=== PATIENT | male | born 1955 | race Caucasian/White ===

== ENCOUNTER → 2024-11-02 | Outpatient (REF) | payer MEDICARE, MEDICAID, SELFPAY ==
[2024-11-02 07:39] LABS: Hematocrit 30.6 % (40-54); Hemoglobin 10.2 g/dL (13.0-16.5); Immature Granulocytes Count 0.050 X10^3/uL (0.0-0.0); Mean Corp Hgb Conc 33.3 g/dL (32-36); Mean Corpuscular Volume 97.5 fL (80-94); Mean Platelet Vol. 10.4 fl (6.2-12.0); NRBC Flagged by Analyzer 0 % (0-5); Platelet Count 282 K/mm3 (150-450); RBC Distribution Width CV 13.5 % (11.6-14.6); RBC Distribution Width SD 48.8 fl (35.1-43.9); Red Blood Count 3.14 M/mm3 (4.6-6.2); White Blood Count 9.0 K/mm3 (4.4-11.0)
[2024-11-02 07:52] LABS: Albumin, Serum 4.1 g/dL (3.4-4.8); Anion Gap 14 (5-15); BUN 67 mg/dL (4-19); BUN/Creat Ratio 9.7 RATIO (10-20); Calcium,Total 9.8 mg/dL (7.6-11.0); Carbon Dioxide 32.0 mmol/L (21.0-32.0); Chloride 100 mmol/L (98-108); Glucose 59 mg/dL (70-99); Potassium 4.0 mmol/L (3.3-5.1)
[2024-11-04 17:07] LABS: KEPPRA (LEVETIRACETAM) 26.8 ug/mL (10.0-40.0)
== END ==
LOC: OLS.SW 04:00
PROVIDERS: Referring Provider Internal Medicine; Visit Provider Internal Medicine
DX: E11.22 Type 2 diabetes mellitus with diabetic chronic kidney disease (principal); N18.6 End stage renal disease; D63.1 Anemia in chronic kidney disease
CPT/HCPCS: 36415; 80069; 80177; 83036; 85025

== ENCOUNTER → 2024-11-04 05:00 | Outpatient (REF) | payer MEDICARE, MEDICAID, SELFPAY ==
--- OUTSIDE RECORDS SUMMARY | 2024-11-04 04:29 | XMS RPT_ITS | CCD ---
Author Organization [facility] Care Team Providers Care Hr Clerk Name Role Phone Yessy Zapata Attending Unavailable Yessy Zapata Attending Unavailable Yessy Zapata Attending Unavailable Results Test Name Value Interpretation Reference Range Facil ity CBC W/Diff, Automatedon 10-22 Absolute Lymph 2.30 X10 3/uL Normal 0.83-4.51 [facility] Comment on above: Order Comment: 206 Performed By: #### L 501.9985, L500.3600, L100.0100 #### [facility] [address] [place], [address] Absolute Neut 5.4 X10 3/uL Normal 2.0-7.7 [facility] Comment on above: Order Comment: 206 Performed By: #### L 501.9985, L500.3600, L100.0100 #### [facility] [address] [place], [address] Basophils/100 WBC (Bld) 0.7 % Normal 0-1 [facility] Comment on above: Order Comment: 206 Performed By: #### L 501.9985, L500.3600, L100.0100 #### [facility] [address] [place], [address] Eosinophils/100 WBC (Bld) 4.9 % Normal 0-5 [facility] Comment on above: Order Comment: 206 Performed By: #### L 501.9985, L500.3600, L100.0100 #### [facility] [address] [place], [address] Erythrocyte distribution width (RBC) [Ratio] 13.5 % Normal 11.6-14.6 [facility] Comment on above: Order Comment: 206 Performed By: #### L 501.9985, L500.3600, L100.0100 #### [facility] [address] [place], [address] Hematocrit (Bld) [Volume fraction] 30.6 % Low 40-54 [facility] Comment on above: Order Comment: 206 Performed By: #### L 501.9985, L500.3600, L100.0100 #### [facility] [address] [place], [address] Hemoglobin (Bld) [Mass/Vol] 10.2 g/dL Low 13.0-16.5 [facility] Comment on above: Order Comment: 206 Performed By: #### L 501.9985, L500.3600, L100.0100 #### [facility] [address] [place], [address] IG% 0.600 Normal 0.0-0.9 [facility] Comment on above: Order Comment: 206 Result Comment: IG% - Immature Granulocytes (promyelocytes, myelocytes and metamyelocytes) > 1% indicates that a LEFT SHIFT is Present. Performed By: #### L 501.9985, L500.3600, L100.0100 #### [facility] [address] [place], [address] Lymphocytes/100 WBC (Bld) 25.7 % Normal 19-41 [facility] Comment on above: Order Comment: 206 Performed By: #### L 501.9985, L500.3600, L100.0100 #### [facility] [address] [place], [address] MCH (RBC) [Entitic mass] 32.5 pg High 27.0-32.0 [facility] Comment on above: Order Comment: 206 Performed By: #### L 501.9985, L500.3600, L100.0100 #### [facility] [address] [place], [address] MCHC (RBC) [Mass/Vol] 33.3 g/dL Normal 32-36 [facility] Comment on above: Order Comment: 206 Performed By: #### L 501.9985, L500.3600, L100.0100 #### [facility] [address] [place], [address] MCV (RBC) [Entitic vol] 97.5 fL High 80-94 [facility] Comment on above: Order Comment: 206 Performed By: #### L 501.9985, L500.3600, L100.0100 #### [facility] [address] [place], [address] Monocytes/100 WBC (Bld) 8.2 % Normal 0-10 [facility] Comment on above: Order Comment: 206 Performed By: #### L 501.9985, L500.3600, L100.0100 #### [facility] [address] [place], [address] Neutrophils/100 WBC (Bld) 59.9 % Normal 47-70 [facility] Comment on above: Order Comment: 206 Performed By: #### L 501.9985, L500.3600, L100.0100 #### [facility] [address] [place], [address] Nucleated RBC (Bld) [#/Vol] 0 10*3/uL Normal 0-5 [facility] Comment on above: Order Comment: 206 Performed By: #### L 501.9985, L500.3600, L100.0100 #### [facility] [address] [place], [address] Platelet mean volume (Bld) [Entitic vol] 10.4 fL Normal 6.2-12.0 [facility] Comment on above: Order Comment: 206 Performed By: #### L 501.9985, L500.3600, L100.0100 #### [facility] [address] [place] [place], [address] Platelets (Bld) [#/Vol] 282 10*3/uL Normal 150-450 [facility] Comment on above: Order Comment: 206 Performed By: #### L 501.9985, L500.3600, L100.0100 #### [facility] [address] [place], [address] RBC (Bld) [#/Vol] 3.14 10*6/uL Low 4.6-6.2 [facility] Comment on above: Order Comment: 206 Performed By: #### L 501.9985, L500.3600, L100.0100 #### [facility] [address] [place], [address] RDW SD 48.8 fl High 35.1-43.9 [facility] Comment on above: Order Comment: 206 Performed By: #### L 501.9985, L500.3600, L100.0100 #### [facility] [address] [place], [address] WBC (Bld) [#/Vol] 9.0 10*3/uL Normal 4.4-11.0 [facility] Comment on above: Order Comment: 206 Performed By: #### L 501.9985, L500.3600, L100.0100 #### [facility] [address] [place], [address] Hemoglobin A1con 11-02-2024 HbA1c (Bld) [Mass fraction] 8.0 % High <=5.6 [facility] Comment on above: Order Comment: 206 Result Comment: Norm al < 5.7 % Prediabetic 5.7 - 6.4 % Diabetic >or= 6.5 % Please note range changes. Performed By: #### L 501.9985, L500.3600, L100.0100 #### [facility] [address] [place], [address] Renal Profileon 11-02-2024 Albumin [Mass/Vol] 4.1 g/dL Normal 3.4-4.8 [facility] Comment on above: Order Comment: 206 Performed By: #### L 501.9985, L500.3600, L100.0100 #### [facility] [address] [place], [address] BUN/CRE 9.7 RATIO Low 10-20 [facility] Comment on above: Order Comment: 206 Performed By: #### L 501.9985, L500.3600, L100.0100 #### [facility] [address] [place], [address] Calcium [Mass/Vol] 9.8 mg/dL Normal 7.6-11.0 [facility] Comment on above: Order Comment: 206 Performed By: #### L 501.9985, L500.3600, L100.0100 #### [facility] [address] [place], [address] Chloride [Moles/Vol] 100 mmol/L Normal 98-108 [facility] Comment on above: Order Comment: 206 Performed By: #### L 501.9985, L500.3600, L100.0100 #### [facility] [address] [place], [address] CO2 [Moles/Vol] 32.0 mmol/L Normal 21.0-32.0 [facility] Comment on above: Order Comment: 206 Performed By: #### L 501.9985, L500.3600, L100.0100 #### [facility] [address] [place], [address] Creatinine [Mass/Vol] 6.91 mg/dL High 0.70-1.20 [facility] Comment on above: Order Comment: 206 Performed By: #### L 501.9985, L500.3600, L100.0100 #### [facility] [address] [place], [address] GAP 14 Normal 5-15 [facility] Comment on above: Order Comment: 206 Performed By: #### L 501.9985, L500.3600, L100.0100 #### [facility] [address] [place], [address] GFR/1.73 sq M.predicted among non-blacks MDRD (S/P/Bld) [Vol rate/Area] 8 mL/min/{1.73_m2} Low >60 [facility] Comment on above: Order Comment: 206 Result Comment: mL/m in/1.73m2 CKD-EPI Creatinine Equation (2020) Performed By: #### L 501.9985, L500.3600, L100.0100 #### [facility] [address] [place], [address] Glucose [Mass/Vol] 59 mg/dL Low 70-99 [facility] Comment on above: Order Comment: 206 Performed By: #### L 501.9985, L500.3600, L100.0100 #### [facility] [address] [place], [address] Phosphate [Mass/Vol] 6.5 mg/dL High 2.7-4.5 [facility] Comment on above: Order Comment: 206 Performed By: #### L 501.9985, L500.3600, L100.0100 #### [facility] [address] [place], [address] Potassium [Moles/Vol] 4.0 mmol/L Normal 3.3-5.1 [facility] Comment on above: Order Comment: 206 Performed By: #### L 501.9985, L500.3600, L100.0100 #### [facility] [address] [place], [address] Sodium [Moles/Vol] 145 mmol/L Normal 133-145 [facility] Comment on above: Order Comment: 206 Performed By: #### L 501.9985, L500.3600, L100.0100 #### [facility] [address] [place], [address] Urea nitrogen [Mass/Vol] 67 mg/dL High 4-19 [facility] Comment on above: Order Comment: 206 Performed By: #### L 501.9985, L500.3600, L100.0100 #### [facility] [address] [place], [address] Basic Metabolic Profile (BMP )on 10-28-2024 BUN/CRE 9.0 RATIO Low 10-20 [facility] Comment on above: Order Comment: 206 Performed By: #### L 100.0100, L500.2500, L501.5200 #### [facility] [address] [place], [address] Calcium [Mass/Vol] 8.7 mg/dL Normal 7.6-11.0 [facility] Comment on above: Order Comment: 206 Performed By: #### L 100.0100, L500.2500, L501.5200 #### [facility] [address] [place], [address] Chloride [Moles/Vol] 96 mmol/L Low 98-108 [facility] Comment on above: Order Comment: 206 Performed By: #### L 100.0100, L500.2500, L501.5200 #### [facility] [address] [place], [address] CO2 [Moles/Vol] 30.1 mmol/L Normal 21.0-32.0 [facility] Comment on above: Order Comment: 206 Performed By: #### L 100.0100, L500.2500, L501.5200 #### [facility] [address] [place], [address] Creatinine [Mass/Vol] 6.72 mg/dL High 0.70-1.20 [facility] Comment on above: Order Comment: 206 Performed By: #### L 100.0100, L500.2500, L501.5200 #### [facility] [address] [place], [address] GAP 14 Normal 5-15 [facility] Comment on above: Order Comment: 206 Performed By: #### L 100.0100, L500.2500, L501.5200 #### [facility] [address] [place], [address] GFR/1.73 sq M.predicted among non-blacks MDRD (S/P/Bld) [Vol rate/Area] 8 mL/min/{1.73_m2} Low >60 [facility] Comment on above: Order Comment: 206 Result Comment: mL/m in/1.73m2 CKD-EPI Creatinine Equation (2020) Performed By: #### L 100.0100, L500.2500, L501.5200 #### [facility] [address] [place], [address] Glucose [Mass/Vol] 169 mg/dL High 70-99 [facility] Comment on above: Order Comment: 206 Performed By: #### L 100.0100, L500.2500, L501.5200 #### [facility] [address] [place], [address] Potassium [Moles/Vol] 4.5 mmol/L Normal 3.3-5.1 [facility] Comment on above: Order Comment: 206 Performed By: #### L 100.0100, L500.2500, L501.5200 #### [facility] [address] [place], [address] Sodium [Moles/Vol] 140 mmol/L Normal 133-145 [facility] Comment on above: Order Comment: 206 Performed By: #### L 100.0100, L500.2500, L501.5200 #### [facility] [address] [place], [address] Urea nitrogen [Mass/Vol] 60 mg/dL High 4-19 [facility] Comment on above: Order Comment: 206 Performed By: #### L 100.0100, L500.2500, L501.5200 #### [facility] [address] [place], [address] CBC W/Diff, Automatedon 08-0 7-2024 Absolute Lymph 2.39 X10 3/uL Normal 0.83-4.51 [facility] Comment on above: Order Comment: 206 Performed By: #### L 100.0100, L500.2500, L501.5200 #### [facility] [address] [place], [address] Absolute Neut 4.9 X10 3/uL Normal 2.0-7.7 [facility] Comment on above: Order Comment: 206 Performed By: #### L 100.0100, L500.2500, L501.5200 #### [facility] [address] [place], [address] Basophils/100 WBC (Bld) 0.8 % Normal 0-1 [facility] Comment on above: Order Comment: 206 Performed By: #### L 100.0100, L500.2500, L501.5200 #### [facility] [address] [place], [address] Eosinophils/100 WBC (Bld) 3.8 % Normal 0-5 [facility] Comment on above: Order Comment: 206 Performed By: #### L 100.0100, L500.2500, L501.5200 #### [facility] [address] [place], [address] Erythrocyte distribution width (RBC) [Ratio] 13.6 % Normal 11.6-14.6 [facility] Comment on above: Order Comment: 206 Performed By: #### L 100.0100, L500.2500, L501.5200 #### [facility] [address] [place], [address] Hematocrit (Bld) [Volume fraction] 30.1 % Low 40-54 [facility] Comment on above: Order Comment: 206 Performed By: #### L 100.0100, L500.2500, L501.5200 #### [facility] [address] [place], [address] Hemoglobin (Bld) [Mass/Vol] 10.0 g/dL Low 13.0-16.5 [facility] Comment on above: Order Comment: 206 Performed By: #### L 100.0100, L500.2500, L501.5200 #### [facility] [address] [place], [address] IG% 0.500 Normal 0.0-0.9 [facility] Comment on above: Order Comment: 206 Result Comment: IG% - Immature Granulocytes (promyelocytes, myelocytes and metamyelocytes) > 1% indicates that a LEFT SHIFT is Present. Performed By: #### L 100.0100, L500.2500, L501.5200 #### [facility] [address] [place], [address] Lymphocytes/100 WBC (Bld) 28.6 % Normal 19-41 [facility] Comment on above: Order Comment: 206 Performed By: #### L 100.0100, L500.2500, L501.5200 #### [facility] [address] [place], [address] MCH (RBC) [Entitic mass] 32.4 pg High 27.0-32.0 [facility] Comment on above: Order Comment: 206 Performed By: #### L 100.0100, L500.2500, L501.5200 #### [facility] [address] [place], [address] MCHC (RBC) [Mass/Vol] 33.2 g/dL Normal 32-36 [facility] Comment on above: Order Comment: 206 Performed By: #### L 100.0100, L500.2500, L501.5200 #### [facility] [address] [place], [address] MCV (RBC) [Entitic vol] 97.4 fL High 80-94 [facility] Comment on above: Order Comment: 206 Performed By: #### L 100.0100, L500.2500, L501.5200 #### [facility] [address] [place], [address] Monocytes/100 WBC (Bld) 7.9 % Normal 0-10 [facility] Comment on above: Order Comment: 206 Performed By: #### L 100.0100, L500.2500, L501.5200 #### [facility] [address] [place], [address] Neutrophils/100 WBC (Bld) 58.4 % Normal 47-70 [facility] Comment on above: Order Comment: 206 Performed By: #### L 100.0100, L500.2500, L501.5200 #### [facility] [address] [place], [address] Nucleated RBC (Bld) [#/Vol] 0 10*3/uL Normal 0-5 [facility] Comment on above: Order Comment: 206 Performed By: #### L 100.0100, L500.2500, L501.5200 #### [facility] [address] [place], [address] Platelet mean volume (Bld) [Entitic vol] 10.4 fL Normal 6.2-12.0 [facility] Comment on above: Order Comment: 206 Performed By: #### L 100.0100, L500.2500, L501.5200 #### [facility] [address] [place], [address] Platelets (Bld) [#/Vol] 292 10*3/uL Normal 150-450 [facility] Comment on above: Order Comment: 206 Performed By: #### L 100.0100, L500.2500, L501.5200 #### [facility] [address] [place], [address] RBC (Bld) [#/Vol] 3.09 10*6/uL Low 4.6-6.2 [facility] Comment on above: Order Comment: 206 Performed By: #### L 100.0100, L500.2500, L501.5200 #### [facility] [address] [place], [address] RDW SD 48.1 fl High 35.1-43.9 [facility] Comment on above: Order Comment: 206 Performed By: #### L 100.0100, L500.2500, L501.5200 #### [facility] [address] [place], [address] WBC (Bld) [#/Vol] 8.4 10*3/uL Normal 4.4-11.0 [facility] Comment on above: Order Comment: 206 Performed By: #### L 100.0100, L500.2500, L501.5200 #### [facility] [address] [place], [address] Magnesiumon 10-28-2024 Magnesium [Mass/Vol] 2.9 mg/dL High 1.5-2.2 [facility] Comment on above: Order Comment: 206 Performed By: #### L 100.0100, L500.2500, L501.5200 #### [facility] [address] [place], [address] Basic Metabolic Profile (BMP )on 2024 BUN/CRE 8.4 RATIO Low 10-20 [facility] Comment on above: Performed By: #### L 100.0100, L500.2500, L501.5200 #### [facility] [address] [place], [address] Calcium [Mass/Vol] 8.9 mg/dL Normal 7.6-11.0 [facility] Comment on above: Performed By: #### L 100.0100, L500.2500, L501.5200 #### [facility] [address] [place], [address] Chloride [Moles/Vol] 98 mmol/L Normal 98-108 [facility] Comment on above: Performed By: #### L 100.0100, L500.2500, L501.5200 #### [facility] [address] [place], [address] CO2 [Moles/Vol] 26.2 mmol/L Normal 21.0-32.0 [facility] Comment on above: Performed By: #### L 100.0100, L500.2500, L501.5200 #### [facility] [address] [place], [address] Creatinine [Mass/Vol] 6.99 mg/dL High 0.70-1.20 [facility] Comment on above: Performed By: #### L 100.0100, L500.2500, L501.5200 #### [facility] [address] [place], [address] GAP 15 Normal 5-15 [facility] Comment on above: Performed By: #### L 100.0100, L500.2500, L501.5200 #### [facility] [address] [place], [address] GFR/1.73 sq M.predicted among non-blacks MDRD (S/P/Bld) [Vol rate/Area] 8 mL/min/{1.73_m2} Low >60 [facility] Comment on above: Result Comment: mL/m in/1.73m2 CKD-EPI Creatinine Equation (2020) Performed By: #### L 100.0100, L500.2500, L501.5200 #### [facility] [address] [place], [address] Glucose [Mass/Vol] 161 mg/dL High 70-99 [facility] Comment on above: Performed By: #### L 100.0100, L500.2500, L501.5200 #### [facility] [address] [place], [address] Potassium [Moles/Vol] 4.4 mmol/L Normal 3.3-5.1 [facility] Comment on above: Performed By: #### L 100.0100, L500.2500, L501.5200 #### [facility] [address] [place], [address] Sodium [Moles/Vol] 140 mmol/L Normal 133-145 [facility] Comment on above: Performed By: #### L 100.0100, L500.2500, L501.5200 #### [facility] [address] [place], [address] Urea nitrogen [Mass/Vol] 58 mg/dL High 4-19 [facility] Comment on above: Performed By: #### L 100.0100, L500.2500, L501.5200 #### [facility] [address] [place], [address] CBC W/Diff, Automatedon 08-0 -2024 Absolute Lymph 3.25 X10 3/uL Normal 0.83-4.51 [facility] Comment on above: Performed By: #### L 100.0100, L500.2500, L501.5200 #### [facility] [address] [place], [address] Absolute Neut 4.2 X10 3/uL Normal 2.0-7.7 [facility] Comment on above: Performed By: #### L 100.0100, L500.2500, L501.5200 #### [facility] [address] [place], [address] Basophils/100 WBC (Bld) 0.6 % Normal 0-1 [facility] Comment on above: Performed By: #### L 100.0100, L500.2500, L501.5200 #### [facility] [address] [place], [address] Eosinophils/100 WBC (Bld) 4.7 % Normal 0-5 [facility] Comment on above: Performed By: #### L 100.0100, L500.2500, L501.5200 #### [facility] [address] [place], [address] Erythrocyte distribution width (RBC) [Ratio] 13.7 % Normal 11.6-14.6 [facility] Comment on above: Performed By: #### L 100.0100, L500.2500, L501.5200 #### [facility] [address] [place], [address] Hematocrit (Bld) [Volume fraction] 29.4 % Low 40-54 [facility] Comment on above: Performed By: #### L 100.0100, L500.2500, L501.5200 #### [facility] [address] [place], [address] Hemoglobin (Bld) [Mass/Vol] 9.6 g/dL Low 13.0-16.5 [facility] Comment on above: Performed By: #### L 100.0100, L500.2500, L501.5200 #### [facility] [address] [place], [address] IG% 0.200 Normal 0.0-0.9 [facility] Comment on above: Result Comment: IG% - Immature Granulocytes (promyelocytes, myelocytes and metamyelocytes) > 1% indicates that a LEFT SHIFT is Present. Performed By: #### L 100.0100, L500.2500, L501.5200 #### [facility] [address] [place], [address] Lymphocytes/100 WBC (Bld) 37.5 % Normal 19-41 [facility] Comment on above: Performed By: #### L 100.0100, L500.2500, L501.5200 #### [facility] [address] [place], [address] MCH (RBC) [Entitic mass] 32.2 pg High 27.0-32.0 [facility] Comment on above: Performed By: #### L 100.0100, L500.2500, L501.5200 #### [facility] [address] [place], [address] MCHC (RBC) [Mass/Vol] 32.7 g/dL Normal 32-36 [facility] Comment on above: Performed By: #### L 100.0100, L500.2500, L501.5200 #### [facility] [address] [place], [address] MCV (RBC) [Entitic vol] 98.7 fL High 80-94 [facility] Comment on above: Performed By: #### L 100.0100, L500.2500, L501.5200 #### [facility] [address] [place], [address] Monocytes/100 WBC (Bld) 8.4 % Normal 0-10 [facility] Comment on above: Performed By: #### L 100.0100, L500.2500, L501.5200 #### [facility] [address] [place], [address] Neutrophils/100 WBC (Bld) 48.6 % Normal 47-70 [facility] Comment on above: Performed By: #### L 100.0100, L500.2500, L501.5200 #### [facility] [address] [place], [address] Nucleated RBC (Bld) [#/Vol] 0 10*3/uL Normal 0-5 [facility] Comment on above: Performed By: #### L 100.0100, L500.2500, L501.5200 #### [facility] [address] [place], [address] Platelet mean volume (Bld) [Entitic vol] 10.2 fL Normal 6.2-12.0 [facility] Comment on above: Performed By: #### L 100.0100, L500.2500, L501.5200 #### [facility] [address] [place], [address] Platelets (Bld) [#/Vol] 282 10*3/uL Normal 150-450 [facility] Comment on above: Performed By: #### L 100.0100, L500.2500, L501.5200 #### [facility] [address] [place], [address] RBC (Bld) [#/Vol] 2.98 10*6/uL Low 4.6-6.2 [facility] Comment on above: Performed By: #### L 100.0100, L500.2500, L501.5200 #### [facility] [address] [place], [address] RDW SD 49.5 fl High 35.1-43.9 [facility] Comment on above: Performed By: #### L 100.0100, L500.2500, L501.5200 #### [facility] [address] [place], [address] WBC (Bld) [#/Vol] 8.7 10*3/uL Normal 4.4-11.0 [facility] Comment on above: Performed By: #### L 100.0100, L500.2500, L501.5200 #### [facility] [address] [place], [address] Magnesiumon 2024 Magnesium [Mass/Vol] 2.8 mg/dL High 1.5-2.2 [facility] Comment on above: Performed By: #### L 100.0100, L500.2500, L501.5200 #### [facility] [address] [place], [address] Encounters Encounter Date Encounter Type Care Provider Facility Start: 11-02-2024 [facility] Facili ty:[facility] Start: 10-28-2024 [facility] Facili ty:[facility] Payers Date Payer Category Payer Self-pay Summary Purpose Family History No Family History Records Found Advance Directives No Advanced Directives Records Found Additional Source Comments (unrecognized sect ion and content) No Status Records Found INFORMATION SOURCE (unrecogn ized section and content) DATE CREATED AUTHOR 11/03/2024 [facility] FOR RECORDS PERTAINING TO PATIENTS WHO ARE OR HAVE BEEN ENROLLED IN A CHEMICAL DEPENDENCY/SUBSTANCEABUSE PROGRAM, SOME INFORMATION MAY BE OMITTED. This clinical summary was aggregated from multiple sources. Caution should be exercised in using it in the provision of clinical care. This summary normalizes information from multiple sources, and as a consequence, information in this document may materially change the coding, format and clinical context of patient data. In addition, data may be omitted in some cases. CLINICAL DECISIONS SHOULD BE BASED ON THE PRIMARY CLINICAL RECORDS. [employer] provides no warranty or guarantee of the accuracy or completeness of information in this document.
[2024-11-04 09:07] LABS: Hematocrit 30.3 % (40-54); Hemoglobin 10.1 g/dL (13.0-16.5); Immature Granulocytes Count 0.020 X10^3/uL (0.0-0.0); Mean Corp Hgb Conc 33.3 g/dL (32-36); Mean Corpuscular Volume 95.9 fL (80-94); Mean Platelet Vol. 10.4 fl (6.2-12.0); NRBC Flagged by Analyzer 0 % (0-5); Platelet Count 280 K/mm3 (150-450); RBC Distribution Width CV 13.4 % (11.6-14.6); RBC Distribution Width SD 47.6 fl (35.1-43.9); Red Blood Count 3.16 M/mm3 (4.6-6.2); White Blood Count 7.8 K/mm3 (4.4-11.0)
[2024-11-04 10:02] LABS: Anion Gap 18 (5-15); BUN 47 mg/dL (4-19); BUN/Creat Ratio 6.6 RATIO (10-20); Calcium,Total 9.5 mg/dL (7.6-11.0); Carbon Dioxide 37.9 mmol/L (21.0-32.0); Chloride 86 mmol/L (98-108); Glucose 139 mg/dL (70-99); Magnesium 2.7 mg/dL (1.5-2.2); Potassium 3.6 mmol/L (3.3-5.1)
== END ==
LOC: OLS.SW 05:00
PROVIDERS: PCP Internal Medicine; Visit Provider Internal Medicine
DX: E11.22 Type 2 diabetes mellitus with diabetic chronic kidney disease (principal); N18.6 End stage renal disease; I12.0 Hypertensive chronic kidney disease with stage 5 chronic kidney disease or end stage renal disease
CPT/HCPCS: 36415; 80048; 83735; 85025

== ENCOUNTER 2024-11-04 10:43 | Emergency (ER) | payer MEDICARE, MEDICAID, SELFPAY ==
[2024-11-04 10:45] VITALS: BP 131/69; PULSE 72; RESP 18; TEMP 36.9; O2SAT 100; BMI 25.9
--- NOTE | 2024-11-04 10:57 | CT_ITS ---
PROCEDURE: ABDOMEN/PELVIS W IV CONT ONLY 11/04/2024 REASON FOR EXAM: ABDOMINAL PAIN, NAUSEA, VOMITING Syncopal episode during dialysis. TECHNIQUE: ABDOMEN/PELVIS W IV CONT ONLY Coronal and Sagittal reconstruction series were provided. CONTRAST: Isovue-300 VOLUME: 95 mL One or more dose reduction techniques were used (e.g., Automated exposure control, adjustment of the mA and/or kV according to patient size, use of iterative reconstruction technique. RADIATION DOSE SUMMARY: CTDlvol: 16.6 mGy DLP: 1088.52 mGycm COMPARISON: None FINDINGS: Lung bases: The lung bases are clear. Coronary artery calcification. Linear density seen in the subcutaneous tissue along the inferior aspect of the medial left breast. Liver: Diffuse fatty infiltration. 7.8 mm well-defined hypodensity in the left lobe of the liver. This may represent a small cyst. There is a similar hypodensity seen in the peripheral lateral aspect of the right lobe of the liver. 2 hypodensity is also seen in the inferior aspect of the right lobe of the liver. Gallbladder: Tiny gallstones are seen along the dependent portion of the gallbladder lumen. Spleen: Normal size. Pancreas: Diffuse fatty atrophy. Adrenals: Unremarkable Kidneys: Renal cyst in the lower pole of the right kidney. Incidental note is made of a left retroaortic renal vein. Bladder: There are multiple bladder diverticula along the right aspect of the bladder as well as along its inferior portion. Mild degree of diffuse bladder wall thickening. Prostatic enlargement. Bowel: Colonic diverticulosis without diverticulitis. Appendix: The appendix is not identified. There is no inflammatory process identified in the right lower quadrant to suggest appendicitis. Lymph nodes: Unremarkable. Vasculature: Mild diffuse atherosclerotic calcifications are noted. Peritoneum / Retroperitoneum: Unremarkable Bones: Degenerative changes of the spine. Mild levoscoliosis. CT/Abdomen/Pelvis W IV Cont ONLY IMPRESSION: Coronary artery calcification. Diffuse fatty infiltration of the liver. Scattered hypodense nodule seen throughout the liver as described suggestive of possible small cysts. Tiny gallstone seen along the dependent portion the gallbladder lumen. Small right renal cyst. Bladder wall thickening with multiple bladder diverticula. Reading Location: [place] [id number]
--- NOTE | 2024-11-04 10:58 | EDS_ITS ---
HPI History of Present Illness Chief Complaint: Nausea/Vomiting Narrative Narrative: Patient is a 69-year-old male presenting to the emergency department for patient is a abdominal pain, nausea and vomiting. Patient has a prior history of a stroke with residual dysarthria for which he is at a shelter for. Also has a history of CKD on dialysis. He was at his dialysis today and got about 2 hours into his treatment when he developed vomiting. Dialysis center states that they have only seen him 4 times because he is new there however every time he has been there he has had this happen. patient states that for the past few days his stomach has been upset. Endorses nausea with non bloody vomiting. He denies fever, chills, chest pain, SOB, dysuria, hematuria, diarrhea. [facility] Medical History (Updated 11/04/24 @ 13:[address] Hannah Gill MD) Dysphagia TIA (transient ischemic attack) Depression Psychosis Vascular dementia Type II diabetes mellitus End stage kidney disease Convulsion Hyperlipemia Legal blindness GERD (gastroesophageal reflux disease) Dependence on renal dialysis Weakness UTI (urinary tract infection) Home Medications ?Medication ?Instructions ?Recorded ?Last Taken ?Type acetaminophen 325 mg capsule 650 mg PO Q4H PRN fever o r pain 11/04/24 Unknown History acetaminophen 650 mg rectal 650 mg NJ Q4H PRN fever or pain 11/04/24 Unknown History suppository aluminum-magnesium hydroxide 225 30 ml PO Q4H PRN PRN acid reflux 11/04/24 Unknown History mg-200 mg/5 mL oral suspension amlodipine 10 mg tablet 5 mg PO DAILY 11/04/24 Unkno wn History aspirin 81 mg capsule 81 mg PO DAILY 11/04/24 Unkn own History atorvastatin 40 mg tablet 40 mg PO DAILY 11/04/24 Unkn own History bisacodyl 10 mg rectal suppository 10 mg NJ DAILY PRN constipation 11/04/24 Unknown History clopidogrel 75 mg tablet 75 mg PO DAILY 11/04/24 Unkn own History dulaglutide 3 mg/0.5 mL 3 mg subcut MO 11/04/24 Unkn own History subcutaneous pen injector (Trulicity) insulin glargine 100 unit/mL (3 20 unit subcut QHS Unknown History mL) subcutaneous pen (Lantus Solostar U-100 Insulin) insulin lispro 100 unit/mL 1 unit subcut TID 11/04/24 Unknown History subcutaneous pen insulin lispro 100 unit/mL 3 unit subcut TID 11/04/24 Unknown History subcutaneous pen (Humalog KwikPen (U-100) Insulin) levetiracetam 500 mg tablet 500 mg PO BID 11/04/24 Unk nown History losartan 25 mg tablet 50 mg PO DAILY 11/04/24 Unkn own History magnesium hydroxide 400 mg/5 mL 30 ml PO DAILY PRN con stipation 11/04/24 Unknown History oral suspension (Milk of Magnesia) metoprolol tartrate 25 mg tablet 12.5 mg PO BID Unknown History omega-3 acid ethyl esters 1 gram 1 cap PO TID 11/04/24 Unknown History capsule ondansetron 4 mg disintegrating 4 mg PO Q8H PRN PRN na usea/vomiting 11/04/24 Unknown History tablet sertraline 25 mg tablet 25 mg PO DAILY 11/04/24 Unkn own History sertraline 50 mg tablet 50 mg PO BID 11/04/24 Unknow n History sodium phosphates 19 gram-7 118 ml NJ DAILY PRN consti pation 11/04/24 Unknown History gram/118 mL enema (Enema) sodium zirconium cyclosilicate 10 10 g PO VAN 11/04/24 Unknown History gram oral powder packet (Lokelma) vitamin B complex-vitamin C-folic 1 tab PO DAILY 11/04 Unknown History acid 0.8 mg tablet (Renal Vitamin) Allergy/AdvReac Type Severity Reaction Status Date / Time No Known Allergies Allergy Verified 11/04/24 10:52 Social History Smoking Status: Current some day smoker tobacco type: cigarettes ROS ROS ED ROS Narrative see HPI EXAM Physical Exam Narrative Exam Narrative: Vital signs: Reviewed General: Alert and oriented. No acute distress HEENT: Head is normocephalic and atraumatic, sinuses nontender, pupils equal round and reactive. Nares are patent. Oropharynx and throat exams normal. Neck: Supple without lymphadenopathy nontender Cardiovascular: Regular rate and rhythm, no murmurs. No rubs or gallops. Normal S1 and S2 Respiratory: Clear to auscultation bilaterally. No wheezes, rales, rhonchi Abdominal: Soft and generally tender to palpation throughout. Normal bowel sounds. No guarding or rebound. Nonsurgical abdomen Extremities: No tenderness. No bruising. Normal range of motion. Normal sensation. Fistula in left upper extremity. Thrill felt. Skin: No rash or redness. Neurological: Dysarthria present, chronic per patient. Cranial nerves II through XII are grossly intact. Normal strength and sensation. Normal cerebellar function The rest of the physical exam is unremarkable Const Vital Signs: 11/04/24 10:45 11/04/24 12:44 11/04/24 13:42 Temperature 98.5 F 98.1 F 97.8 F Temperature Source Oral Oral Pulse Rate 72 69 77 Respiratory Rate 18 17 11 L Blood Pressure 131/69 H 164/62 H 153/61 H Blood Pressure Mean 89 96 91 Pulse Ox 100 97 95 Oxygen Delivery Method Room Air Room Air 11/04/24 14:00 Temperature Temperature Source Pulse Rate 72 Respiratory Rate 11 L Blood Pressure 149/74 H Blood Pressure Mean 99 Pulse Ox 93 Oxygen Delivery Method Room Air MDM MDM MDM Narrative Medical decision making narrative: Patient is a 69-year-old male presenting to the emergency department for abdominal pain, nausea and vomiting. Patient was seen and examined. Vitals are stable. Patient appears uncomfortable in bed, vomited shortly before arrival here. Differential includes but is not limited to: Gastroenteritis, obstruction, cholecystitis, pancreatitis, diverticulitis Fluid bolus started. Given reglan, patient states that at his nursing facility they gave him something for nausea but we are unable to verify currently. CBC with no leukocytosis and hemoglobin of 11. CMP with mild anion gap of 17. Lipase within normal limits. Mild hyperglycemia of 143. Bicarb of 35, no DKA. Consistent with mild dehydration. Chronic kidney disease noted. Normal lactate. CT shows diffuse fatty infiltration of the liver. Scattered hypodense nodule seen throughout the liver as described suggestive of possible small cysts. Tiny gallstone seen along the dependent portion the gallbladder lumen. Small right renal cyst. Bladder wall thickening with multiple bladder diverticula. Patient reevaluated and is feeling much better. Denies any abdominal pain, nausea or vomiting. Able to tolerate p.o. fluids. Suspect his symptoms were secondary to his dialysis. They may be taking fluids off too quickly given he had no issues with the nausea and vomiting shortly after dialysis in the past but has at this facility for the past 4 times. Patient has Zofran at his facility ordered as needed if needed. He is appropriate for discharge. Patient discharged from the Emergency Department. I do not feel that the patient's evaluation reveals any acute reason for admission at this time. I instructed them to either follow-up with their primary care physician or promptly return to the Emergency Department for reevaluation should symptoms worsen or new symptoms develop. I explained what symptoms would indicate the need to return to the emergency department. Shared decision making was used. The patient voiced understanding of the treatment plan and is agreeable with it. Clinical Impression: 1. Nausea and vomiting 2. chronic anemia History & Record Review Discussion w/independent historian: Patient Lab Data Attestation: I reviewed the patient's lab results. Labs: Laboratory Results - last 24 hr 11/04/24 11:00 WBC 9.3 RBC 3.42 L Hgb 11.0 L Hct 32.7 L MCV 95.6 H MCH 32.2 H MCHC 33.6 RDW Std Deviation 46.5 H RDW Coeff of Corina 13.4 Plt Count 303 MPV 10.0 Immature Gran % (Auto) 0.300 Neut % (Auto) 61.1 Lymph % (Auto) 27.3 [place] % (Auto) 9.9 Eos % (Auto) 1.3 Baso % (Auto) 0.1 Absolute Neuts (auto) 5.7 Absolute Lymphs (auto) 2.53 Nucleated RBC % 0 Sodium 140 Potassium 3.4 Chloride 88 L Carbon Dioxide 35.6 H Anion Gap 17 H BUN 29 H Creatinine 4.57 H Estim Creat Clear Calc 16.74 L Est GFR (MDRD) Non-Af 13 L BUN/Creatinine Ratio 6.3 L Glucose 143 H Lactic Acid 1.7 Calcium 8.9 Total Bilirubin 0.51 AST 22 ALT 15 Alkaline Phosphatase 76 Total Protein 7.6 Albumin 4.3 Globulin 3.3 Albumin/Globulin Ratio 1.3 Lipase 50 Radiography Diagnostic Testing: Clinical Impression(s) from Imaging Studies Abdomen/Pelvis CT 11/04/24 10:57 IMPRESSION: Coronary artery calcification. Diffuse fatty infiltration of the liver. Scattered hypodense nodule seen throughout the liver as described suggestive of possible small cysts. Tiny gallstone seen along the dependent portion the gallbladder lumen. Small right renal cyst. Bladder wall thickening with multiple bladder diverticula. Reading Location: [facility] Discharge Plan Triage Chief Complaint: Nausea/Vomiting ED Provider: Hannah Gill Dx/Rx/DC Orders Clinical Impression: Nausea & vomiting Instructions: ED Vomiting (Adult) Prescriptions: No Action acetaminophen 650 mg suppository 650 mg NJ Q4H PRN (Reason: fever or pain) acetaminophen 325 mg capsule 650 mg PO Q4H PRN (Reason: fever or pain) amlodipine 10 mg tablet 5 mg PO DAILY aluminum-magnesium hydroxide 225-200 mg/5 mL suspension 30 ml PO Q4H PRN PRN (Reason: acid reflux) aspirin 81 mg capsule 81 mg PO DAILY atorvastatin 40 mg tablet 40 mg PO DAILY bisacodyl 10 mg suppository 10 mg NJ DAILY PRN (Reason: constipation) clopidogrel 75 mg tablet 75 mg PO DAILY Enema 19-7 gram/118 mL enema 118 ml NJ DAILY PRN (Reason: constipation) insulin lispro [Humalog KwikPen Insulin] 100 unit/mL insulin pen 3 unit subcut TID insulin glargine [Lantus Solostar U-100 Insulin] 100 unit/mL (3 mL) insulin pen 20 unit subcut QHS insulin lispro 100 unit/mL insulin pen 1 unit SUBCUT TID Patient Comments: UNDER 200-NO INSULIN 200 TO 250 2 UNITS, 251 TO 300 4 UNITS, 301 TO 350 6 UNITS, ABOVE 350 8 UNITS MAX DAILY UNITS 24 levetiracetam 500 mg tablet 500 mg PO BID Lokelma 10 gram powder in packet 10 g PO VAN Rx Instructions: SUN losartan 25 mg tablet 50 mg PO DAILY metoprolol tartrate 25 mg tablet 12.5 mg PO BID magnesium hydroxide [Milk of Magnesia] 400 mg/5 mL suspension 30 ml PO DAILY PRN (Reason: constipation) omega-3 acid ethyl esters 1 gram capsule 1 cap PO TID Renal Vitamin 0.8 mg tablet 1 tab PO DAILY sertraline 25 mg tablet 25 mg PO DAILY sertraline 50 mg tablet 50 mg PO BID Trulicity 3 mg/0.5 mL pen injector 3 mg subcut MO ondansetron 4 mg tablet,disintegrating 4 mg PO Q8H PRN PRN (Reason: nausea/vomiting) Primary Care Provider: Yessy Morgan Referrals: Yessy Morgan MD [Primary Care Provider] - 1 Day Activity Restrictions/Additional Instructions: Your evaluation in the Emergency Department did not reveal any acute reason for admission. However, I want to emphasize that you may be early in the course of a disease process or illness even if it is not present. For this reason you should follow-up within 24 hours for reevaluation with either your primary care physician or if necessary back here in the Emergency Department. You should return to the Emergency Department immediately if your symptoms worsen or new symptoms develop. Print Language: [place] Irish Disposition Disposition: Assisted Living Discharge Location: [facility]
[2024-11-04 11:14] LABS: Hematocrit 32.7 % (40-54); Hemoglobin 11.0 g/dL (13.0-16.5); Immature Granulocytes Count 0.030 X10^3/uL (0.0-0.0); Mean Corp Hgb Conc 33.6 g/dL (32-36); Mean Corpuscular Volume 95.6 fL (80-94); Mean Platelet Vol. 10.0 fl (6.2-12.0); NRBC Flagged by Analyzer 0 % (0-5); Platelet Count 303 K/mm3 (150-450); RBC Distribution Width CV 13.4 % (11.6-14.6); RBC Distribution Width SD 46.5 fl (35.1-43.9); Red Blood Count 3.42 M/mm3 (4.6-6.2); White Blood Count 9.3 K/mm3 (4.4-11.0)
[2024-11-04] MEDS: 0.9% Normal Saline (1000mL) 1,000 ML 1000 ML IV (11:15)
[2024-11-04 11:37] LABS: AST(SGOT) 22 U/L (<=37); Alanine Aminotransfer ALT/SGPT 15 U/L (<=46); Albumin, Serum 4.3 g/dL (3.4-4.8); Alkaline Phosphatase 76 U/L (40-129); Anion Gap 17 (5-15); BUN 29 mg/dL (4-19); BUN/Creat Ratio 6.3 RATIO (10-20); Calcium,Total 8.9 mg/dL (7.6-11.0); Carbon Dioxide 35.6 mmol/L (21.0-32.0); Chloride 88 mmol/L (98-108); Estimated Creatinine Clearance 16.74 ml/min (50-250); Globulin 3.3 g/dL (2.2-4.2); Glucose 143 mg/dL (70-99); Lipase 50 U/L (13-75); Potassium 3.4 mmol/L (3.3-5.1)
[2024-11-04 12:44] VITALS: BP 164/62; PULSE 69; RESP 17; TEMP 36.7; O2SAT 97
--- NOTE | 2024-11-04 12:53 | ED.RN ---
called to get consent to treat. Call went to generic . left message to call back.
--- NOTE | 2024-11-04 13:19 | NURSING ---
Dialysis needles removed at this time by this RN
[2024-11-04 13:42] VITALS: BP 153/61; PULSE 77; RESP 11; TEMP 36.6; O2SAT 95
[2024-11-04 14:00] VITALS: BP 149/74; PULSE 72; RESP 11; O2SAT 93
[2024-11-04 14:17] LABS: Mucous, Urine 0 SEEN /hpf (<or=2+)
[2024-11-04 14:26] LABS: Color, Urine Yellow (Yellow); Glucose, Dipstick Normal (Normal); Ketone-Dipstick Negative (Negative); Leukocyte Esterase-Dipstick 100 /ul (Negative); Nitrite-Dipstick Negative (Negative); Occult Blood-Urine 10 /ul (Negative); Protein-Dipstick 100 mg/dl (Negative); Specific Gravity, Urine 1.010 (1.002-1.030); Urine Bilirubin Dipstick Negative (Negative)
--- NOTE | 2024-11-04 16:12 | ED.RN ---
Report called to gerry at [facility]
[2024-11-04 16:32] LABS: Red Blood Cells-Urine 0-5 SEEN /hpf (0-5); Squamous Epithelial Cells - UA 0-5 SEEN /hpf (0-5)
== END 2024-11-04 16:14 | disposition home or self-care (01) ==
PROVIDERS: Emergency Provider Student in an Organized Health Care Education/Training Program; PCP Internal Medicine; Referring Provider Student in an Organized Health Care Education/Training Program; Visit Provider Student in an Organized Health Care Education/Training Program
DX: R11.2 Nausea with vomiting, unspecified (principal); N18.6 End stage renal disease; E11.22 Type 2 diabetes mellitus with diabetic chronic kidney disease; Z79.4 Long term (current) use of insulin; I69.322 Dysarthria following cerebral infarction; D63.1 Anemia in chronic kidney disease; F17.210 Nicotine dependence, cigarettes, uncomplicated; Z99.2 Dependence on renal dialysis; Z79.02 Long term (current) use of antithrombotics/antiplatelets; Z79.82 Long term (current) use of aspirin; Z79.85 Long-term (current) use of injectable non-insulin antidiabetic drugs; Z79.899 Other long term (current) drug therapy
CPT/HCPCS: 74177; 80053; 81001; 83605; 83690; 85025; 93005; 96361; 96374; 99285

== ENCOUNTER → 2024-11-09 05:00 | Outpatient (REF) | payer MEDICARE, MEDICAID, SELFPAY ==
[2024-11-09 07:44] LABS: Hematocrit 27.9 % (40-54); Hemoglobin 9.2 g/dL (13.0-16.5); Immature Granulocytes Count 0.030 X10^3/uL (0.0-0.0); Mean Corp Hgb Conc 33.0 g/dL (32-36); Mean Corpuscular Volume 96.2 fL (80-94); Mean Platelet Vol. 10.4 fl (6.2-12.0); NRBC Flagged by Analyzer 0 % (0-5); Platelet Count 257 K/mm3 (150-450); RBC Distribution Width CV 12.9 % (11.6-14.6); RBC Distribution Width SD 46.0 fl (35.1-43.9); Red Blood Count 2.90 M/mm3 (4.6-6.2); White Blood Count 7.9 K/mm3 (4.4-11.0)
[2024-11-09 08:55] LABS: Albumin, Serum 3.8 g/dL (3.4-4.8); Anion Gap 16 (5-15); BUN 55 mg/dL (4-19); BUN/Creat Ratio 6.8 RATIO (10-20); Calcium,Total 8.7 mg/dL (7.6-11.0); Carbon Dioxide 34.2 mmol/L (21.0-32.0); Chloride 94 mmol/L (98-108); Glucose 142 mg/dL (70-99); Potassium 3.4 mmol/L (3.3-5.1)
== END ==
LOC: OLS.SW 05:00
PROVIDERS: PCP Internal Medicine; Visit Provider Internal Medicine
DX: N18.6 End stage renal disease (principal); Z79.899 Other long term (current) drug therapy
CPT/HCPCS: 36415; 80069; 85025

== ENCOUNTER → 2024-11-16 | Outpatient (REF) | payer MEDICARE, MEDICAID, SELFPAY ==
[2024-11-16 07:32] LABS: Hematocrit 23.0 % (40-54); Hemoglobin 7.9 g/dL (13.0-16.5); Immature Granulocytes Count 0.040 X10^3/uL (0.0-0.0); Mean Corp Hgb Conc 34.3 g/dL (32-36); Mean Corpuscular Volume 94.7 fL (80-94); Mean Platelet Vol. 10.1 fl (6.2-12.0); NRBC Flagged by Analyzer 0 % (0-5); Platelet Count 242 K/mm3 (150-450); RBC Distribution Width CV 12.6 % (11.6-14.6); RBC Distribution Width SD 43.8 fl (35.1-43.9); Red Blood Count 2.43 M/mm3 (4.6-6.2); White Blood Count 7.3 K/mm3 (4.4-11.0)
[2024-11-16 08:00] LABS: Albumin, Serum 3.6 g/dL (3.4-4.8); Anion Gap 14 (5-15); BUN 62 mg/dL (4-19); BUN/Creat Ratio 7.7 RATIO (10-20); Calcium,Total 8.5 mg/dL (7.6-11.0); Carbon Dioxide 26.8 mmol/L (21.0-32.0); Chloride 100 mmol/L (98-108); Glucose 282 mg/dL (70-99); Potassium 4.0 mmol/L (3.3-5.1)
== END ==
LOC: OLS.SW 05:00
PROVIDERS: PCP Internal Medicine; Visit Provider Internal Medicine
DX: D64.9 Anemia, unspecified (principal); E11.22 Type 2 diabetes mellitus with diabetic chronic kidney disease; N18.6 End stage renal disease
CPT/HCPCS: 36415; 80069; 85025

== ENCOUNTER → 2024-11-18 | Outpatient (REF) | payer MEDICARE, MEDICAID, SELFPAY ==
[2024-11-18 09:16] LABS: Hematocrit 24.0 % (40-54); Hemoglobin 8.2 g/dL (13.0-16.5); Immature Granulocytes Count 0.030 X10^3/uL (0.0-0.0); Mean Corp Hgb Conc 34.2 g/dL (32-36); Mean Corpuscular Volume 94.9 fL (80-94); Mean Platelet Vol. 9.9 fl (6.2-12.0); NRBC Flagged by Analyzer 0 % (0-5); Platelet Count 254 K/mm3 (150-450); RBC Distribution Width CV 12.9 % (11.6-14.6); RBC Distribution Width SD 44.6 fl (35.1-43.9); Red Blood Count 2.53 M/mm3 (4.6-6.2); White Blood Count 6.4 K/mm3 (4.4-11.0)
== END ==
LOC: OLS.SW 05:00
PROVIDERS: PCP Internal Medicine; Visit Provider Internal Medicine
DX: D64.9 Anemia, unspecified (principal)
CPT/HCPCS: 36415; 85025

== ENCOUNTER → 2024-11-23 05:00 | Outpatient (REF) | payer MEDICARE, MEDICAID, SELFPAY ==
[2024-11-23 09:35] LABS: Hematocrit 24.4 % (40-54); Hemoglobin 8.3 g/dL (13.0-16.5); Immature Granulocytes Count 0.030 X10^3/uL (0.0-0.0); Mean Corp Hgb Conc 34.0 g/dL (32-36); Mean Corpuscular Volume 96.4 fL (80-94); Mean Platelet Vol. 9.8 fl (6.2-12.0); NRBC Flagged by Analyzer 0 % (0-5); Platelet Count 262 K/mm3 (150-450); RBC Distribution Width CV 13.5 % (11.6-14.6); RBC Distribution Width SD 46.5 fl (35.1-43.9); Red Blood Count 2.53 M/mm3 (4.6-6.2); White Blood Count 6.3 K/mm3 (4.4-11.0)
[2024-11-23 10:01] LABS: Albumin, Serum 3.6 g/dL (3.4-4.8); Anion Gap 15 (5-15); BUN 59 mg/dL (4-19); BUN/Creat Ratio 8.5 RATIO (10-20); Calcium,Total 8.8 mg/dL (7.6-11.0); Carbon Dioxide 23.9 mmol/L (21.0-32.0); Chloride 103 mmol/L (98-108); Glucose 162 mg/dL (70-99); Potassium 4.0 mmol/L (3.3-5.1)
== END ==
LOC: OLS.SW 05:00
PROVIDERS: PCP Internal Medicine; Visit Provider Internal Medicine
DX: E11.22 Type 2 diabetes mellitus with diabetic chronic kidney disease (principal); N18.6 End stage renal disease
CPT/HCPCS: 36415; 80069; 85025

== ENCOUNTER → 2024-11-30 | Outpatient (REF) | payer MEDICARE, MEDICAID, SELFPAY ==
[2024-11-30 09:26] LABS: Hematocrit 25.4 % (40-54); Hemoglobin 8.5 g/dL (13.0-16.5); Immature Granulocytes Count 0.020 X10^3/uL (0.0-0.0); Mean Corp Hgb Conc 33.5 g/dL (32-36); Mean Corpuscular Volume 96.6 fL (80-94); Mean Platelet Vol. 10.1 fl (6.2-12.0); NRBC Flagged by Analyzer 0.3 % (0-5); Platelet Count 288 K/mm3 (150-450); RBC Distribution Width CV 13.6 % (11.6-14.6); RBC Distribution Width SD 47.1 fl (35.1-43.9); Red Blood Count 2.63 M/mm3 (4.6-6.2); White Blood Count 6.9 K/mm3 (4.4-11.0)
[2024-11-30 09:40] LABS: Albumin, Serum 3.9 g/dL (3.4-4.8); Anion Gap 16 (5-15); BUN 56 mg/dL (4-19); BUN/Creat Ratio 7.9 RATIO (10-20); Calcium,Total 8.9 mg/dL (7.6-11.0); Carbon Dioxide 28.5 mmol/L (21.0-32.0); Chloride 98 mmol/L (98-108); Glucose 167 mg/dL (70-99); Potassium 3.7 mmol/L (3.3-5.1)
== END ==
LOC: OLS.SW 07:25
PROVIDERS: PCP Internal Medicine; Visit Provider Internal Medicine
DX: D64.9 Anemia, unspecified (principal); N18.6 End stage renal disease
CPT/HCPCS: 36415; 80069; 85025

== ENCOUNTER → 2024-12-07 04:00 | Outpatient (REF) | payer MEDICARE, MEDICAID, SELFPAY ==
[2024-12-07 08:13] LABS: Hematocrit 24.3 % (40-54); Hemoglobin 8.3 g/dL (13.0-16.5); Immature Granulocytes Count 0.020 X10^3/uL (0.0-0.0); Mean Corp Hgb Conc 34.2 g/dL (32-36); Mean Corpuscular Volume 96.4 fL (80-94); Mean Platelet Vol. 10.0 fl (6.2-12.0); NRBC Flagged by Analyzer 0 % (0-5); Platelet Count 298 K/mm3 (150-450); RBC Distribution Width CV 14.3 % (11.6-14.6); RBC Distribution Width SD 49.1 fl (35.1-43.9); Red Blood Count 2.52 M/mm3 (4.6-6.2); White Blood Count 8.1 K/mm3 (4.4-11.0)
[2024-12-07 08:30] LABS: Albumin, Serum 3.7 g/dL (3.4-4.8); Anion Gap 16 (5-15); BUN 53 mg/dL (4-19); BUN/Creat Ratio 8.1 RATIO (10-20); Calcium,Total 9.0 mg/dL (7.6-11.0); Carbon Dioxide 27.3 mmol/L (21.0-32.0); Chloride 99 mmol/L (98-108); Glucose 152 mg/dL (70-99); Potassium 3.7 mmol/L (3.3-5.1)
== END ==
LOC: OLS.SW 04:00
PROVIDERS: PCP Internal Medicine; Referring Provider Internal Medicine; Visit Provider Internal Medicine
DX: E11.9 Type 2 diabetes mellitus without complications (principal)
CPT/HCPCS: 36415; 80069; 85025

== ENCOUNTER → 2024-12-14 | Outpatient (REF) | payer MEDICARE, MEDICAID, SELFPAY ==
[2024-12-14 08:36] LABS: Hematocrit 27.0 % (40-54); Hemoglobin 9.1 g/dL (13.0-16.5); Immature Granulocytes Count 0.020 X10^3/uL (0.0-0.0); Mean Corp Hgb Conc 33.7 g/dL (32-36); Mean Corpuscular Volume 96.8 fL (80-94); Mean Platelet Vol. 10.1 fl (6.2-12.0); NRBC Flagged by Analyzer 0 % (0-5); Platelet Count 254 K/mm3 (150-450); RBC Distribution Width CV 14.1 % (11.6-14.6); RBC Distribution Width SD 49.5 fl (35.1-43.9); Red Blood Count 2.79 M/mm3 (4.6-6.2); White Blood Count 6.8 K/mm3 (4.4-11.0)
[2024-12-14 08:51] LABS: Albumin, Serum 3.9 g/dL (3.4-4.8); Anion Gap 17 (5-15); BUN 56 mg/dL (4-19); BUN/Creat Ratio 7.8 RATIO (10-20); Calcium,Total 8.9 mg/dL (7.6-11.0); Carbon Dioxide 26.5 mmol/L (21.0-32.0); Chloride 98 mmol/L (98-108); Glucose 119 mg/dL (70-99); Potassium 3.6 mmol/L (3.3-5.1)
== END ==
LOC: OLS.SW 05:00
PROVIDERS: PCP Internal Medicine; Visit Provider Internal Medicine
DX: E11.22 Type 2 diabetes mellitus with diabetic chronic kidney disease (principal); N18.6 End stage renal disease
CPT/HCPCS: 36415; 80069; 85025

== ENCOUNTER 2025-01-31 09:38 | Inpatient (IN) | payer MEDICARE, MEDICAID, SELFPAY ==
[2025-01-31] VITALS (9 sets, daily range): BP systolic 169–189; BP diastolic 73–87; PULSE 64–71; RESP 16–18; TEMP 36.5–36.8; O2SAT 94–98; BMI 24.9
--- NOTE | 2025-01-31 09:45 | CT_ITS ---
PROCEDURE: BRAIN/HEAD WITHOUT CONTRAST 01/31/2025 REASON FOR EXAM: MENTAL STATUS CHANGE, SLURRED SPEECH TECHNIQUE: Procedure Code: CTBR Modality: CT Procedure: BRAIN/HEAD WITHOUT CONTRAST Coronal and Sagittal reconstruction series were provided. One or more dose reduction techniques were used (e.g., Automated exposure control, adjustment of the mA and/or kV according to patient size, use of iterative reconstruction technique. RADIATION DOSE SUMMARY: CTDlvol: 45 mGy DLP: 796 mGycm COMPARISON: None FINDINGS: Brain: There is no evidence of hemorrhage, acute ischemia or mass. No extra- axial fluid collection, midline shift or mass effect. Encephalomalacia is seen in the watershed regions anteriorly, [id number]. Encephalomalacia right parietal lobe and to a lesser extent left parietal lobe. Encephalomalacia left occipital lobe. CSF Spaces: Mild generalized cerebral atrophy Sinuses/Mastoids: Mastoid air cells are clear. Sclerosis, thickening of the left sphenoid sinus. Some of the contents are increased density which can be seen with fungal colonization. Septal spur directed to the left. Bones: No fracture. CT/Brain/Head without Contrast IMPRESSION: 1. No evidence of acute ischemia or hemorrhage. Several sites of encephalomal acia in the watershed, bilateral parietal lobes and left occipital lobe. 2. Sclerosis, thickening and opacification left sphenoid sinus. Findings sugg estive of chronic sinusitis. Fungal colonization is a consideration as well. Reading Location: [id number]
--- NOTE | 2025-01-31 09:46 | EKG12_ITS ---
Test Reason : Blood Pressure : */* mmHG Vent. Rate : 64 BPM Atrial Rate : 64 BPM P-R Int : 144 ms QRS Dur : 108 ms QT Int : 488 ms P-R-T Axes : 21 6 73 degrees QTcB Int : 503 ms Normal sinus rhythm Inferior infarct (cited on or before 04-Nov-2024) Prolonged QT Abnormal ECG Confirmed by Mariano Kong ([id number]), graphic editor MARY ALVARENGA ([id number]) on 02/01/2025 11:47:44 AM Referred By: Confirmed By: Mariano Kong
--- NOTE | 2025-01-31 09:47 | EDS_ITS ---
HPI History of Present Illness Chief Complaint: Alt LOC Detail of Chief Complaint: Mental status change with concern for stroke Informant: patient, EMS and SNF Narrative Narrative: Patient presents to the emergency department via EMS from detention. Sent to dialysis today but he was confused and referred to the emergency department. Patient apparently has been more confused with slurred speech x 3 days. Patient is a poor historian. He denies any pain anywhere. Feels like maybe his right side is weak. He has history of TIA. He has history of seizures. Difficult to obtain good history from patient. He denies fevers. [facility] Medical History (Updated 01/31/25 @ 11:[address] Rudy Rivas, DO) Dysphagia TIA (transient ischemic attack) Depression Psychosis Vascular dementia Type II diabetes mellitus End stage kidney disease Convulsion Hyperlipemia Legal blindness GERD (gastroesophageal reflux disease) Dependence on renal dialysis Weakness UTI (urinary tract infection) Home Medications Medication Instructions Recorded Last Taken Type acetaminophen 325 mg capsule 650 mg PO Q6H PRN fever o r pain 11/04/24 Unknown History acetaminophen 650 mg rectal 650 mg TN Q4H PRN fever or pain 11/04/24 Unknown History suppository aluminum-magnesium hydroxide 225 30 ml PO Q4H PRN PRN acid reflux 11/04/24 Unknown History mg-200 mg/5 mL oral suspension amlodipine 10 mg tablet 5 mg PO DAILY bp 11/04/24 Un known History aspirin 81 mg capsule 81 mg PO DAILY blood thinner 11/04/24 Unknown History atorvastatin 40 mg tablet 40 mg PO DAILY cholesterol 0 11/04/24 Unknown History clopidogrel 75 mg tablet 75 mg PO DAILY heart 5 Unknown History dulaglutide 3 mg/0.5 mL 3 mg subcut MO DM 11/04/24 U nknown History subcutaneous pen injector (Trulicity) insulin glargine 100 unit/mL (3 14 unit subcut .qam dm 11/04/24 Unknown History mL) subcutaneous pen (Lantus Solostar U-100 Insulin) insulin lispro 100 unit/mL 1 unit subcut TID dm Unknown History subcutaneous pen levetiracetam 500 mg tablet 500 mg PO BID seizures Unknown History losartan 25 mg tablet 50 mg PO DAILY 11/04/24 Unkn own History magnesium hydroxide 400 mg/5 mL 30 ml PO DAILY PRN con stipation 11/04/24 Unknown History oral suspension (Milk of Magnesia) metoprolol tartrate 25 mg tablet 12.5 mg PO BID HTN Unknown History omega-3 acid ethyl esters 1 gram 1 cap PO BID suppleme nt 11/04/24 Unknown Hi story capsule ondansetron 4 mg disintegrating 4 mg PO Q8H PRN nausea /vomiting 11/04/24 Unknown History tablet sertraline 25 mg tablet 25 mg PO DAILY 11/04/24 Unkn own History sertraline 50 mg tablet 50 mg PO BID 11/04/24 Unknow n History diphenhydramine HCl 25 mg capsule 25 mg PO PRN allergy 01/31/25 Unknown History (Allergy (diphenhydramine)) diphenhydramine HCl 50 mg capsule 50 mg PO PRN anaphyl axsis/allergy 01/31/25 Unknown History diphenhydramine HCl 50 mg/mL 25 mg IM PRN anaphylaxsis 01/31/25 Unknown History injection solution diphenhydramine HCl 50 mg/mL 50 mg IM PRN anaphylaxisi s 01/31/25 Unknown History injection solution epinephrine HCl (PF) 1 mg/mL (1 0.3 mg IM PRN anaphyla xsis 01/31/25 Unknown History mL) injection solution epoetin beta, methoxy peg 50 30 mcg IV QMONTH used for dialysis 01/31/25 Unknown History mcg/0.3 mL injection syringe (Mircera) iron sucrose 50 mg iron/2.5 mL 50 mg IV QWEEK dialysis 01/31/25 Unknown History intravenous solution methylprednisolone sodium succ 125 125 mg IM PRN anaph ylaxsis/allergy 01/31/25 Unknown History mg solution for injection metoclopramide HCl 5 mg tablet 10 mg PO .as directed n ausea/ 01/31/25 Unknown History (Reglan) vomiting promethazine 25 mg tablet 25 mg PO Q8H PRN nausea/vomm iting 01/31/25 Unknown History sevelamer carbonate 800 mg tablet 800 mg PO TID high B P 01/31/25 Unknown History vitamin B complex-vitamin C-folic 1 tab PO DAILY suppl ement 01/31/25 Unknown History acid 0.8 mg tablet (Katelynn-Tiago) Allergy/AdvReac Type Severity Reaction Status Date / Time No Known Allergies Allergy Verified 01/31/25 09:45 Social History Smoking Status: Current some day smoker tobacco type: cigarettes ROS ROS ED Review of Systems ROS Unobtainable: other Constitutional Constitutional ED: Reports lethargy; Denies chills, fever(s), sweats or weight loss Eyes Eyes: Denies blurry vision, change in vision or diplopia ENT ENT ED: Denies rhinorrhea or sore throat Cardiovascular Cardiovascular: Denies chest pain, orthopnea or racing heartbeat Respiratory/Chest Respiratory/Chest: Denies cough, dyspnea, dyspnea on exertion, orthopnea or sputum Gastrointestinal Gastrointestinal: Denies abdominal pain, diarrhea, nausea or vomiting Genitourinary Genitourinary ED: Denies dysuria, hematuria or urinary frequency Musculoskeletal Musculoskeletal: Denies arthralgias, back pain, myalgias or neck pain Integumentary Denies abscess, Abrasions or rash Neurologic Neurologic: Reports other Details: Right sided weakness, slurred speech ; Denies headache(s) or weakness Psychiatric Psychiatric: Denies anxiety, depression or suicidal thoughts Endocrine Endocrinology: Denies polydipsia, polyphagia or polyuria Hematologic/Lymphatic Hematologic/Lymphatic: Denies easy bleeding, easy bruising or lymphadenopathy Allergic/Immunologic Allergic/Immunologic ED: Denies mouth swelling, tongue swelling or urticaria EXAM Physical Exam Const Vital Signs: 01/31/25 09:39 Temperature 97.7 F L Temperature Source Oral Pulse Rate 70 Respiratory Rate 18 Blood Pressure 169/73 H Blood Pressure Mean 105 Pulse Ox 94 Oxygen Delivery Method Room Air Positive well nourished and well developed General Appearance ED: well developed and NAD HEENT Reports TM's clear and moist mucous membranes normocephalic and atraumatic; Negative for trauma or tenderness Tympanic Membrane ED: Yes TM's clear Eyes PERRL and EOMs intact bilaterally General Eye ED: Negative for pale conjunctiva or scleral icterus Neck no lymphadenopathy, supple and no JVD General: Negative for tenderness Chest Wall inspection of chest normal and palpation of chest normal Chest: Negative for tenderness Resp normal respiratory effort and clear to auscultation bilaterally Effort and Inspection: Negative for respiratory distress or pain with movement Auscultation: Negative for rhonchi, wheezes or diminished lung sounds Cardio regular rate, regular rhythm, S1 normal heart sound, S2 normal heart sound and no murmurs Peripheral Pulses: pulses 2+ throughout GI normal to inspection, nondistended, normoactive bowel sounds, soft to palpation, non-tender, non-distended and no masses Back/Spine no CVA tenderness and no thoracic nor lumbar tenderness Extremity normal to inspection General Extremety ED: Negative for edema General Extremity: Negative for edema Neuro oriented x3, CN's II-XII intact bilaterally, no sensory deficits noted and gait normal Neuro Narrative: Patient seems to move all 4 extremities. I do not appreciate any facial droop. He appears to have some extinction to the left side potentially. Speech does appear garbled. NIH stroke scale is a 9. On my evaluation it appears the weakness seems to be more left-sided with some ataxia of his left arm. Sensorium / Orientation: awake, alert, oriented to person, oriented to place and oriented to time Motor Exam: strength 5/5 throughout and strength abnormal Psych mental status grossly normal Skin no rashes or lesions noted and no wounds MDM MDM MDM Narrative Medical decision making narrative: Patient presents with mental status change and concern for possibility of stroke. He is not a thrombolytic candidate as symptoms develop more than 3 days ago. NIH stroke scale of 9. CT scan of the brain without contrast showed chronic changes with several sites of encephalomalacia in the watershed bilateral parietal lobes and left occipital lobe. Chest x-ray unremarkable. CBC with differential shows a white count of 9.4 with hemoglobin 9.3 and platelet count of 263. Chemistries unremarkable. Lactate normal at 1.2. Troponin was elevated at 100 however he does have renal failure and is not complaining of chest pain therefore low index of suspicion for acute coronary syndrome. His BUN was 72 and creatinine 7.93. Discussed with hospitalist will evaluate patient for admission. Concern for stroke. Lab Data Attestation: I reviewed the patient's lab results. Labs: Laboratory Results - last 24 hr 01/31/25 09:58 WBC 9.4 RBC 2.79 L Hgb 9.3 L Hct 27.7 L MCV 99.3 H MCH 33.3 H MCHC 33.6 RDW Std Deviation 49.5 H RDW Coeff of Corina 13.9 Plt Count 263 MPV 9.5 Immature Gran % (Auto) 0.400 Neut % (Auto) 67.0 Lymph % (Auto) 23.1 [place] % (Auto) 5.5 Eos % (Auto) 3.5 Baso % (Auto) 0.5 Absolute Neuts (auto) 6.3 Absolute Lymphs (auto) 2.17 Nucleated RBC % 0 Sodium 141 Potassium 4.1 Chloride 101 Carbon Dioxide 23.4 Anion Gap 17 H BUN 72 H Creatinine 7.93 H* Estim Creat Clear Calc 9.65 L* Est GFR (MDRD) Non-Af 7 L BUN/Creatinine Ratio 9.1 L Glucose 309 H Lactic Acid 1.2 Calcium 8.8 Troponin T High Sens 100 H* Radiography Diagnostic Testing: Clinical Impression(s) from Imaging Studies Brain CT 01/31/25 09:45 IMPRESSION: 1. No evidence of acute ischemia or hemorrhage. Several sites of encephalomalacia in the watershed, bilateral parietal lobes and left occipital lobe. 2. Sclerosis, thickening and opacification left sphenoid sinus. Findings suggestive of chronic sinusitis. Fungal colonization is a consideration as well. Reading Location: [facility] Chest X-Ray 01/31/25 10:25 IMPRESSION: No acute abnormality Reading Location: [facility] EKG Initial EKG: Attestation: I personally reviewed and interpreted this EKG as follows: Comments: Sinus rhythm with rate of 64 bpm with prolonged QT at 488. Discharge Plan Triage Chief Complaint: Alt LOC ED Provider: Rudy Rivas Dx/Rx/DC Orders Clinical Impression: Altered mental status, CVA (cerebral vascular accident), Chronic renal failure Prescriptions: No Action acetaminophen 650 mg suppository 650 mg TN Q4H PRN (Reason: fever or pain) acetaminophen 325 mg capsule 650 mg PO Q6H PRN (Reason: fever or pain) amlodipine 10 mg tablet 5 mg PO DAILY aluminum-magnesium hydroxide 225-200 mg/5 mL suspension 30 ml PO Q4H PRN PRN (Reason: acid reflux) aspirin 81 mg capsule 81 mg PO DAILY atorvastatin 40 mg tablet 40 mg PO DAILY clopidogrel 75 mg tablet 75 mg PO DAILY insulin glargine [Lantus Solostar U-100 Insulin] 100 unit/mL (3 mL) insulin pen 14 unit subcut .qam insulin lispro 100 unit/mL insulin pen 1 unit SUBCUT TID Patient Comments: UNDER 200-NO INSULIN 200 TO 250 2 UNITS, 251 TO 300 4 UNITS, 301 TO 350 6 UNITS, ABOVE 350 8 UNITS MAX DAILY UNITS 24 levetiracetam 500 mg tablet 500 mg PO BID losartan 25 mg tablet 50 mg PO DAILY metoprolol tartrate 25 mg tablet 12.5 mg PO BID Rx Instructions: hold for BP 100/60 magnesium hydroxide [Milk of Magnesia] 400 mg/5 mL suspension 30 ml PO DAILY PRN (Reason: constipation) omega-3 acid ethyl esters 1 gram capsule 1 cap PO BID sertraline 25 mg tablet 25 mg PO DAILY sertraline 50 mg tablet 50 mg PO BID Trulicity 3 mg/0.5 mL pen injector 3 mg subcut MO ondansetron 4 mg tablet,disintegrating 4 mg PO Q8H PRN diphenhydramine HCl [Allergy (diphenhydramine)] 25 mg capsule 25 mg PO PRN diphenhydramine HCl 50 mg capsule 50 mg PO PRN Mircera 50 mcg/0.3 mL syringe 30 mcg IV QMONTH methylprednisolone sodium succ 125 mg recon soln 125 mg IM PRN iron sucrose 50 mg iron/2.5 mL solution 50 mg IV QWEEK Rx Instructions: administer over 15 minutes epinephrine HCl (PF) 1 mg/mL (1 mL) solution 0.3 mg IM PRN Rx Instructions: do not exceed 12 doses per 24 hrs diphenhydramine HCl 50 mg/mL solution 25 mg IM PRN Rx Instructions: may repeat once in 30-60 minutes if not effective diphenhydramine HCl 50 mg/mL solution 50 mg IM PRN promethazine 25 mg tablet 25 mg PO Q8H PRN metoclopramide HCl [Reglan] 5 mg tablet 10 mg PO .as directed Rx Instructions: take before meals for nausea/vomiting Katelynn-Tiago 0.8 mg tablet 1 tab PO DAILY sevelamer carbonate 800 mg tablet 800 mg PO TID Referrals: Yessy Morgan MD [[facility]] Print Language: Monegasque
[2025-01-31] MEDS: 0.9% Normal Saline (1000mL) 1,000 ML 150 ML IV (09:58)
[2025-01-31 10:13] LABS: Hematocrit 27.7 % (40-54); Hemoglobin 9.3 g/dL (13.0-16.5); Immature Granulocytes Count 0.040 X10^3/uL (0.0-0.0); Mean Corp Hgb Conc 33.6 g/dL (32-36); Mean Corpuscular Volume 99.3 fL (80-94); Mean Platelet Vol. 9.5 fl (6.2-12.0); NRBC Flagged by Analyzer 0 % (0-5); Platelet Count 263 K/mm3 (150-450); RBC Distribution Width CV 13.9 % (11.6-14.6); RBC Distribution Width SD 49.5 fl (35.1-43.9); Red Blood Count 2.79 M/mm3 (4.6-6.2); White Blood Count 9.4 K/mm3 (4.4-11.0)
--- NOTE | 2025-01-31 10:25 | RAD_ITS ---
PROCEDURE: CHEST 1 VIEW (PORTABLE) 01/31/2025 REASON FOR EXAM: HTN TECHNIQUE: Frontal view of the chest. COMPARISON: None FINDINGS: Hardware: EKG leads. Loop recorder is present. Heart: Heart size is mildly enlarged. Atherosclerotic plaque at the aortic arch. Lungs: Clear. No pneumothorax or pleural effusion. Bones: The bones are unremarkable. RAD/Chest 1 View (Portable) IMPRESSION: No acute abnormality Reading Location: [id number]
[2025-01-31 10:41] LABS: Anion Gap 17 (5-15); BUN 72 mg/dL (4-19); BUN/Creat Ratio 9.1 RATIO (10-20); Calcium,Total 8.8 mg/dL (7.6-11.0); Carbon Dioxide 23.4 mmol/L (21.0-32.0); Chloride 101 mmol/L (98-108); Estimated Creatinine Clearance 9.65 ml/min (50-250); Glucose 309 mg/dL (70-99); Potassium 4.1 mmol/L (3.3-5.1)
[2025-01-31 10:42] LABS: Troponin T High Sensitivity 100 ng/L (<=22)
--- NOTE | 2025-01-31 11:09 | PCM.HP.STD ---
HPI - General General Date of Admission: 01/31/25 Date of Service: 01/31/25 Chief Complaint: Altered mental status HPI Narrative LEONARDO RUELAS, is a 69 M who presents who was brought to ED by EMS from skilled nursing. History mainly taken from the chart and ER physician. He was found altered mental status slurred speech by the staff Vitals in the skilled nursing/EMS shows BP 145/85, heart rate 84, pulse ox 96% on room air, temperature 98.8 °F. Blood sugar 375. Patient was found lethargic with slurred speech. There was also mention about shingles on the back on the triage note by ED nurse but neither Dr. Scott nor I found evidence of rash on the back or skin of other areas of the body Twelve-lead EKG NSR 64 bpm, QRS [address] scan in ER which does not show acute abnormality. He is on hemodialysis and his bingo usher Dr. Odonnell confirmed by Dr. Odonnell himself as he moved towards [facility] recently. [facility] Medical History Dysphagia TIA (transient ischemic attack) Depression Psychosis Vascular dementia Type II diabetes mellitus End stage kidney disease Convulsion Hyperlipemia Legal blindness GERD (gastroesophageal reflux disease) Dependence on renal dialysis Weakness UTI (urinary tract infection) Home Medications Medication Instructions Recorded Last Taken Type acetaminophen 325 mg capsule 650 mg PO Q6H PRN fever or pain 11/04/24 Unknown History acetaminophen 650 mg rectal 650 mg MI Q4H PRN fever or pain 11/04/24 Unknown History suppository aluminum-magnesium hydroxide 225 30 ml PO Q4H PRN PRN acid reflux 11/04/24 Unknown History mg-200 mg/5 mL oral suspension amlodipine 10 mg tablet 5 mg PO DAILY bp 11/04/24 Unknown History aspirin 81 mg capsule 81 mg PO DAILY blood thinner 11/04/24 Unknown History atorvastatin 40 mg tablet 40 mg PO DAILY cholesterol 11/04/24 Unknown History clopidogrel 75 mg tablet 75 mg PO DAILY heart 11/04/24 Unknown History dulaglutide 3 mg/0.5 mL 3 mg subcut MO DM 11/04/24 Unknown History subcutaneous pen injector (Trulicity) insulin glargine 100 unit/mL (3 14 unit subcut .qam dm 11/04/24 Unknown History mL) subcutaneous pen (Lantus Solostar U-100 Insulin) insulin lispro 100 unit/mL 1 unit subcut TID dm 11/04/24 Unknown History subcutaneous pen levetiracetam 500 mg tablet 500 mg PO BID seizures 11/04/24 Unknown History losartan 25 mg tablet 50 mg PO DAILY 11/04/24 Unknown History magnesium hydroxide 400 mg/5 mL 30 ml PO DAILY PRN constipation 11/04/24 Unknown History oral suspension (Milk of Magnesia) metoprolol tartrate 25 mg tablet 12.5 mg PO BID HTN 11/04/24 Unknown History omega-3 acid ethyl esters 1 gram 1 cap PO BID supplement 11/04/24 Unknown History capsule ondansetron 4 mg disintegrating 4 mg PO Q8H PRN nausea/vomiting 11/04/24 Unknown History tablet sertraline 25 mg tablet 25 mg PO DAILY 11/04/24 Unknown History sertraline 50 mg tablet 50 mg PO BID 11/04/24 Unknown History diphenhydramine HCl 25 mg capsule 25 mg PO PRN allergy 01/31/25 Unknown History (Allergy (diphenhydramine)) diphenhydramine HCl 50 mg capsule 50 mg PO PRN anaphylaxsis/allergy 01/31/25 Unknown History diphenhydramine HCl 50 mg/mL 25 mg IM PRN anaphylaxsis 01/31/25 Unknown History injection solution diphenhydramine HCl 50 mg/mL 50 mg IM PRN anaphylaxisis 01/31/25 Unknown History injection solution epinephrine HCl (PF) 1 mg/mL (1 0.3 mg IM PRN anaphylaxsis 01/31/25 Unknown History mL) injection solution epoetin beta, methoxy peg 50 30 mcg IV QMONTH used for dialysis 01/31/25 Unknown History mcg/0.3 mL injection syringe (Mircera) iron sucrose 50 mg iron/2.5 mL 50 mg IV QWEEK dialysis 01/31/25 Unknown History intravenous solution methylprednisolone sodium succ 125 125 mg IM PRN anaphylaxsis/allergy 01/31/25 Unknown History mg solution for injection metoclopramide HCl 5 mg tablet 10 mg PO .as directed nausea/ 01/31/25 Unknown History (Reglan) vomiting promethazine 25 mg tablet 25 mg PO Q8H PRN nausea/vommiting 01/31/25 Unknown History sevelamer carbonate 800 mg tablet 800 mg PO TID high BP 01/31/25 Unknown History vitamin B complex-vitamin C-folic 1 tab PO DAILY supplement 01/31/25 Unknown History acid 0.8 mg tablet (Katelynn-Tiago) Allergy/AdvReac Type Severity Reaction Status Date / Time No Known Allergies Allergy Verified 01/31/25 09:45 Social History Smoking Status: Current some day smoker tobacco type: cigarettes ROS ROS Narrative 14 system ROS unobtainable Review of Systems ROS Unobtainable: due to encephalopathy and due to mental status Vital Signs Vital Signs Vital Signs: 01/31/25 09:39 Temperature 97.7 F L Temperature Source Oral Pulse Rate 70 Respiratory Rate 18 Blood Pressure 169/73 H Blood Pressure Mean 105 Pulse Ox 94 Oxygen Delivery Method Room Air Weight Weight: 183 lb 13.848 oz Body Mass Index (BMI) 24.9 Physical Exam Narrative General: Confused, disoriented to time place and person and situation. Noncooperative. Mildly agitated HEENT: Atraumatic, PERRLA, EOMI, Normocephalic. Oral: Oral mucosa dry. No Gingival or Mucosal Lesions/ Ulcerations/vascular lesions seen Neck: Supple, No JVD, Negative Carotid Bruits Chest wall/Lungs: Air entry diminished in bilateral lung bases. No crepitation/rhonchi Cardiovascular: Regular rate and rhythm, Normal S1,S2, No M/G/R Abdomen: Bowel Sounds Present, Soft, Non Tender, Non-Distended : Palpable thrill over left arm AV fistula No renal angle tenderness. No suprapubic tenderness. Extremities: No edema, Capillary Refill Less than 3 Seconds Skin: No rashes, No breakdown Musculoskeletal: No Tenderness to Palpation of Joints or Extremities Neurological: Confused, no active seizure. Sensory and motor system could not be examined. Speech slurred. Psych/Mental Status: Confused disoriented, flat affect. Results Lab / Micro Data 01/31/25 09:58 01/31/25 09:58 Labs: Laboratory Results - last 24 hr 01/31/25 09:58: WBC 9.4, RBC 2.79 L, Hgb 9.3 L, Hct 27.7 L, MCV 99.3 H, MCH 33.3 H, MCHC 33.6, RDW Std Deviation 49.5 H, RDW Coeff of Corina 13.9, Plt Count 263, MPV 9.5, Immature Gran % (Auto) 0.400, Neut % (Auto) 67.0, Lymph % (Auto) 23.1, [place] % (Auto) 5.5, Eos % (Auto) 3.5, Baso % (Auto) 0.5, Absolute Neuts (auto) 6.3, Absolute Lymphs (auto) 2.17, Nucleated RBC % 0, Sodium 141, Potassium 4.1, Chloride 101, Carbon Dioxide 23.4, Anion Gap 17 H, BUN 72 H, Creatinine 7.93 H*, Estim Creat Clear Calc 9.65 L*, Est GFR (MDRD) Non-Af 7 L, BUN/Creatinine Ratio 9.1 L, Glucose 309 H, Lactic Acid 1.2, Calcium 8.8, Troponin T High Sens 100 H* Imaging Radiology Impression Brain CT 01/31/25 09:45 IMPRESSION: 1. No evidence of acute ischemia or hemorrhage. Several sites of encephalomalacia in the watershed, bilateral parietal lobes and left occipital lobe. 2. Sclerosis, thickening and opacification left sphenoid sinus. Findings suggestive of chronic sinusitis. Fungal colonization is a consideration as well. Reading Location: [id number] Chest X-Ray 01/31/25 10:25 IMPRESSION: No acute abnormality Reading Location: [facility] Assessment & Plan Assessment/Plan (1) Altered mental status: PLAN: Plan 69-year-old gentleman was sent to ED from skilled nursing for altered mental status and concern for stroke. 1. Acute encephalopathy possible metabolic encephalopathy with slurred speech, concern for stroke: Patient is being admitted in PCU. CT head does not show evidence of acute ischemia or hemorrhage. PT, OT, speech therapy/swallow evaluation and management, nursing NIH stroke scale, BP and glucose monitoring and control as per stroke protocol. TSH, A1c fasting lipid profile tomorrow AM. MRI brain and 2D echo with bubble contrast study ordered. Has started on baby aspirin and high intensity statin. 2. Hypertension: Blood pressure is elevated, 177/79, 174/75 but within BP parameters of stroke. Monitor BP. 3. DM type II:A1c 8.0 on 11/02/2024. Glucose 309. Accu-Chek before meals and at bedtime with Humalog sliding scale coverage and hypoglycemia protocol. 4. Elevated troponin: Elevated troponin possible due to ESRD on hemodialysis. Patient does not have chest pain or shortness of breath or other acute cardiac symptoms. Troponin 100. Follow the troponin trends 5. ESRD on hemodialysis: Patient is known to bingo usher Dr. Odonnell. He is consulted. Patient has left arm AV fistula on probably Friday and Friday. 6. History of seizure/convulsion: Patient on levetiracetam 500 mg p.o. twice daily, changed to IV as patient is n.p.o. 7. Vascular dementia, psychosis: Home medication reconciliation done 8. GERD: PPI 9. CT head reported opacification, sclerosis thickening of left Tesuloid sinus with possibility of fungal colonization/chronic sinusitis. CT sinus ordered DVT prophylaxis: High risk, heparin 5000 units subcutaneous twice daily. CODE STATUS: Could not go in the detail as patient altered mental status and does not have capacity to understand but he loosely said he wants ventilation and CPR. For now full code Laboratory Results 01/31/25 09:58: WBC 9.4, RBC 2.79 L, Hgb 9.3 L, Hct 27.7 L, MCV 99.3 H, MCH 33.3 H, MCHC 33.6, RDW Std Deviation 49.5 H, RDW Coeff of Corina 13.9, Plt Count 263, MPV 9.5, Immature Gran % (Auto) 0.400, Neut % (Auto) 67.0, Lymph % (Auto) 23.1, [place] % (Auto) 5.5, Eos % (Auto) 3.5, Baso % (Auto) 0.5, Absolute Neuts (auto) 6.3, Absolute Lymphs (auto) 2.17, Nucleated RBC % 0, Sodium 141, Potassium 4.1, Chloride 101, Carbon Dioxide 23.4, Anion Gap 17 H, BUN 72 H, Creatinine 7.93 H*, Estim Creat Clear Calc 9.65 L*, Est GFR (MDRD) Non-Af 7 L, BUN/Creatinine Ratio 9.1 L, Glucose 309 H, Lactic Acid 1.2, Calcium 8.8, Magnesium Pending, Troponin T High Sens 100 H* Clinical Impression(s) from Imaging Studies Brain CT 01/31/25 09:45 IMPRESSION: 1. No evidence of acute ischemia or hemorrhage. Several sites of encephalomalacia in the watershed, bilateral parietal lobes and left occipital lobe. 2. Sclerosis, thickening and opacification left sphenoid sinus. Findings suggestive of chronic sinusitis. Fungal colonization is a consideration as well. Reading Location: [facility] Chest X-Ray 01/31/25 10:25 IMPRESSION: No acute abnormality Reading Location: [facility] Charges/Coding Visit Charges Inpatient E&M: 22923 Init Hosp L3 Procedures Hospitalists Procedures: 27557 Advncd Care Plan 30 Min
--- NOTE | 2025-01-31 11:47 | CT_ITS ---
PROCEDURE: STROKE CTA HEAD AND NECK W/CON 01/31/2025 REASON FOR EXAM: NEURO DEFICIT, ACUTE, STROKE SUSPECTED TECHNIQUE: Procedure Code: [id number].HN Modality: CT Procedure: STROKE CTA HEAD AND NECK W/CON Multiplanar Sagittal and Coronal images were obtained. 3D post processing was performed CONTRAST: Isovue 370 VOLUME: 100 mL One or more dose reduction techniques were used (e.g., Automated exposure control, adjustment of the mA and/or kV according to patient size, use of iterative reconstruction technique). RADIATION DOSE SUMMARY: CTDlvol: 46 mGy DLP: 1552.17 mGycm COMPARISON: Prior CT scan of the head done earlier in the day. FINDINGS: Aortic Arch: Normal size and branching pattern. Mild atherosclerotic plaque. Brachiocephalic and Subclavians: Mild atherosclerotic plaque without significant stenosis. RIGHT Carotid: Right CCA: Unremarkable. Right ICA: Mild calcified and soft plaque. Maximum stenosis (NASCET): <50 % Right ECA: Unremarkable. LEFT Carotid: Left CCA: Unremarkable. Left ICA: Moderate calcified and soft plaque. Maximum stenosis (NASCET): 65 % Left ECA: Unremarkable. Vertebrals: Dominant right vertebral artery. RIGHT Vertebral: Unremarkable. LEFT Vertebral: Unremarkable. Anatomy: [place] anatomy is normal. Atherosclerotic calcification of the cavernous portions of the internal carotid arteries bilaterally. Aneurysm or avm: No intracranial aneurysms or large vascular malformations are identified. Anterior cerebral arteries: Unremarkable: Middle cerebral arteries: Unremarkable. Basilar artery: Unremarkable. Posterior cerebral arteries: Unremarkable. Other major branches of the posterior circulation: Unremarkable. Major venous structures: Unremarkable. Other findings: Opacification of the left sphenoid sinus. CT/STROKE CTA Head AND Neck W/Con IMPRESSION: 60-65% narrowing at the origin of the right internal carotid artery. Opacification of the left sphenoid sinus. Stroke Alert: 65% narrowing of Left ICA The critical findings in the findings and impression above were relayed directl y by me by telephone to Clifton La on 01/31/2025 at 12:51 pm with readback verification. Reading Location: [place] [id number]
--- NOTE | 2025-01-31 12:05 | CT_ITS ---
PROCEDURE: SINUS/FACIAL BONE 01/31/2025 REASON FOR EXAM: CT HEAD SHOWS OPACIFICATION OF LEFT SPHENOID SINUS TECHNIQUE: Procedure Code: CTSI Modality: CT Procedure: SINUS/FACIAL BONE Coronal and Sagittal reconstruction series were provided. One or more dose reduction techniques were used (e.g., Automated exposure control, adjustment of the mA and/or kV according to patient size, use of iterative reconstruction technique). RADIATION DOSE SUMMARY: CTDlvol: 19.34 mGy DLP: 782.18 mGycm COMPARISON: Prior CT scan of the brain done earlier in the day. FINDINGS: Frontal: Frontal sinuses clear. Ethmoid: Ethmoid sinuses are clear. Sphenoid: Opacification of the left sphenoid sinus with the calcification suggestive of chronic changes. Maxillary: Mild degree of mucosal thickening of the base of the right maxillary sinus. Turbinates: Hypertrophy of the inferior turbinates bilaterally. Nasal Septum: Midline. Mastoids/Middle Ears: Unremarkable CT/Sinus/Facial Bone IMPRESSION: Opacification of the left sphenoid sinus with calcifications. Mucosal thickening at the base of the right maxillary sinus. Reading Location: [place] [id number]
--- NOTE | 2025-01-31 12:07 | ECHOD_ITS ---
Reason For Study Reason For Study: CVA Procedure This was a 2D Doppler, Color Flow transthoracic echocardiogram. Patient unable to hold still for testing. Exam performed portable in patient room. Left Ventricle Normal LV size. Mild concentric left ventricular hypertrophy. Mild posterior and lateral hypokinesis. Estimated LVEF 60%. Stage I diastolic dysfunction. Right Ventricle Normal right ventricle. Atria The left and right atria are normal. Mitral Valve Mildly thickened anterior mitral valve leaflet. Equivocal anterior mitral valve leaflet prolapse. Mild posteriorly directed mitral valve regurgitation. Tricuspid Valve Trivial tricuspid valve insufficiency. Unable to estimate RV systolic pressure due to insufficient tricuspid regurgitant envelope. Aortic Valve Trisinus/trileaflet aortic valve. Trivial aortic valve insufficiency. Pulmonic Valve The pulmonic valve is not well visualized. Great Vessels Normal sized aortic root. Pericardium/Pleural No pericardial effusion. MMode/2D Measurements & Calculations LVIDd: 5.2 cm IVSd: 1.2 cm Ao root diam: 3.9 cm LVIDs: 3.2 cm LVPWd: 1.3 cm RVDd: 3.7 cm FS: 39.4 % LAV(MOD-bp): 61.9 ml LVAd ap4: 34.8 cm2 SV(MOD-sp4): 64.1 ml LAV(MOD-bp) Indexed: 30.2 ml/m2 LVLd ap4: 7.9 cm SI(MOD-sp4): 31.3 ml/m2 LAV(MOD-sp2): 56.5 ml EDV(MOD-sp4): 126.8 ml LAV(MOD-sp4): 56.8 ml EDV(sp4-el): 129.5 ml LVAs ap4: 22.4 cm2 LVLs ap4: 6.7 cm ESV(MOD-sp4): 62.6 ml ESV(sp4-el): 63.4 ml EF(MOD-sp4): 50.6 % EF(sp4-el): 51.0 % SV(sp4-el): 66.0 ml LA A4 area: 20.4 cm2 LA dimension(2D): 4.0 cm RA A4 area: 15.6 cm2 TAPSE: 2.5 cm Time Measurements MV dec time: 0.33 sec Doppler Measurements & Calculations MV E max sin: 74.3 cm/sec Lat Peak E' Sin: 8.8 cm/sec Med Peak E' Sin: 8.1 cm/sec MV A max sin: 104.2 cm/sec E/E' lat: 8.5 E/E' med: 9.1 MV E/A: 0.71 MV V2 max: 107.8 cm/sec MV P1/2t max sin: 86.3 cm/sec Ao V2 max: 123.9 cm/sec MV max P.7 mmHg MV P1/2t: 113.2 msec Ao max P.1 mmHg MV V2 mean: 57.2 cm/sec Ao V2 mean: 91.5 cm/sec MV mean P.5 mmHg MV dec slope: 223.2 cm/sec2 Ao mean P.7 mmHg MV V2 VTI: 31.0 cm MVA(P1/2t): 1.9 cm2 Ao V2 VTI: 35.5 cm AV (velocity ratio): 0.61 LV V1 max: 87.3 cm/sec MR max sin: 647.1 cm/sec PA V2 max: 96.7 cm/sec LV V1 max P.0 mmHg MR max P.7 mmHg PA V2 mean: 68.0 cm/sec LV V1 mean P.5 mmHg LV V1 mean: 57.3 cm/sec LV V1 VTI: 21.7 cm ECHO/Echo Complete Interpretation Summary Mild concentric left ventricular hypertrophy. Mild posterior and lateral hypokinesis. Estimated LVEF 60%. Stage I diastolic d ysfunction. Mildly thickened anterior mitral valve leaflet. Equivocal anterior mitral valve leaflet prolapse. Mild posteriorly directed mitral valve regurgitation. Ordering Physician: Clifton La Performed By: Davi Dozier RCS
--- NOTE | 2025-01-31 12:22 | MRI_ITS ---
PROCEDURE: MRI BRAIN WITHOUT CONTRAST 01/31/2025 REASON FOR EXAM: SUSPECTED STROKE TECHNIQUE: Procedure Code: MRIBR Modality: MR Procedure: BRAIN WITHOUT CONTRAST Multiplanar and multisequential MRI of the brain was performed without contrast. COMPARISON: CT head/angiography earlier same day 01/31/2025. FINDINGS: No regions of abnormal restricted diffusion to indicate recent infarct. There are numerous chronic infarcts with encephalomalacia and gliosis scattered throughout the bilateral cerebral hemispheres, and multiple small foci of chronic lacunar infarcts in the bilateral ricks radiata and basal ganglia, including the left cerebral peduncle with asymmetric atrophy/wallerian degeneration. No evidence of acute intracranial hemorrhage, extra-axial collection, mass- effect, or other acute abnormality. Moderate generalized brain parenchymal volume loss. Major intracranial vascular flow voids are grossly preserved. Grossly unremarkable orbits. Mucosal thickening/fluid opacifying the left sphenoid sinus. No mastoid effusions. MRI/Brain without Contrast IMPRESSION: No evidence of acute infarct on this exam. Advanced chronic small-vessel ische caden changes with numerous scattered old cortical infarcts throughout the bilateral cerebral hemispheres, and multiple old lacuna r infarcts in the ricks radiata and bilateral basal ganglia. Reading Location: [id number]
[2025-01-31 12:35] LABS: Magnesium 2.6 mg/dL (1.5-2.2)
[2025-01-31] MEDS: levETIRAcetam IV 500 MG in 0.9% Normal Saline (100mL Bag) 100 ML 420 MG IV ×2 (13:14→21:00)
[2025-01-31] MEDS: 0.9% Normal Saline (1000mL) 1,000 ML 50 ML IV (13:14)
[2025-01-31 13:28] LABS: Troponin T High Sens 2 HR 94 ng/L (<=22)
--- NOTE | 2025-01-31 14:44 | CASEMGMT ---
Social Work SW did receive the POA document from [facility] but it is incomplete. SW asked for the full document, this is all they have, pages one, three and seven. SW called , confirmed the discharge plan will be for pt to return to [facility] at d/c. Pt has been there for a few months. She had given SW a short list of things pt cannot have while here, SW did pass this on to the RN. also mentioned that she is going to be speaking w/pt's daughters about pt's code status, she is aware pt is a full code at this time. SW did also ask to bring in full POA document to the hospital as able. She states plans to come this way Friday or Friday, but will try to fax to tomorrow. SW gave her the fax number for [facility] as the fax on PCU is not working at present. PHQ-9 will not be completed due to pt's vascular dementia, pt is not fully alert and oriented. Updates will be sent to [facility] when appropriate. 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 will continue to follow. ANN Garcia
--- NOTE | 2025-01-31 14:50 | CASEMGMT ---
Addendum entered by Duyen Bright 01/31/25 15:03: [facility] would like to obtain precert but can return while it's pending. Duyen Bright DC Planning Asst. Original Note: Discharge Planning Updates sent via [facility] to [facility] with note asking if precert is needed. Awaiting response. Duyen Bright DC Planning Asst.
[2025-01-31 15:24] LABS: Troponin T High Sens 4 HR 97 ng/L (<=22)
--- NOTE | 2025-01-31 16:15 | NURSING ---
NIHSS unable to be fully completed at this time as pt being unwilling to participate. Pt repeatedly stating "no" during attempt.
--- NOTE | 2025-01-31 18:55 | PCM.HOSP.N ---
Hospitalist Note Pt's presented a list of medications that she does not want her to receive. HOLD placed on atorvastatin to avoid accidental administration by nrsg.
--- NOTE | 2025-01-31 20:26 | NURSING ---
unable to collect accurate NIH assessment due to pt only being partially cooperative. Praveen Tyler RN
[2025-01-31] MEDS: Heparin Injection (Vial) 5,000 UNIT/ML VIAL 5000 UNIT SC (21:00)
[2025-02-01] VITALS (21 sets, daily range): BP systolic 131–199; BP diastolic 67–87; PULSE 51–67; RESP 14–16; TEMP 36.6–36.8; O2SAT 95–100; BMI 24.9; BMI 24.5
[2025-02-01 06:03] LABS: Hematocrit 28.6 % (40-54); Hemoglobin 9.4 g/dL (13.0-16.5); Immature Granulocytes Count 0.030 X10^3/uL (0.0-0.0); Mean Corp Hgb Conc 32.9 g/dL (32-36); Mean Corpuscular Volume 101.1 fL (80-94); Mean Platelet Vol. 9.6 fl (6.2-12.0); NRBC Flagged by Analyzer 0 % (0-5); Platelet Count 281 K/mm3 (150-450); RBC Distribution Width CV 14.0 % (11.6-14.6); RBC Distribution Width SD 50.2 fl (35.1-43.9); Red Blood Count 2.83 M/mm3 (4.6-6.2); White Blood Count 10.3 K/mm3 (4.4-11.0)
[2025-02-01 06:43] LABS: Cholesterol 225 mg/dL (<=200); Low Density Lipoprotein Calc. 148 mg/dL; Triglycerides 261 mg/dL; Very Low Density Lipoprotein 52 mg/dL (5-40); cholesterol:hdl ratio screen 7.79
[2025-02-01 06:45] LABS: Anion Gap 17 (5-15); BUN 73 mg/dL (4-19); BUN/Creat Ratio 9.0 RATIO (10-20); Calcium,Total 8.6 mg/dL (7.6-11.0); Carbon Dioxide 21.0 mmol/L (21.0-32.0); Chloride 106 mmol/L (98-108); Estimated Creatinine Clearance 9.52 ml/min (50-250); Glucose 76 mg/dL (70-99); Potassium 4.2 mmol/L (3.3-5.1)
--- NOTE | 2025-02-01 07:30 | NURSING ---
Unable to complete full NIH assessment this morning. Pt not complying with the assessment. Danielito Alvarez RN
--- NOTE | 2025-02-01 09:06 | ST.MBS ---
Modified Barium Swallow Patient Information Study Date: 02/01/25 Study Time: 08:30 Direct Billable Minutes: 105 Total Minutes procedure & reportin Diagnosis: CVA I63.9 Referring Physician: Clifton La Reason for Referral: Assess swallow function, assess risk for aspiration, and determine recommendations for least restrictive diet textures and compensatory strategies to improve swallowing safety. Medical History: The patient was [facility] to [facility] ED [facility] AMS, lethargy, and slurred speech. There was also mention about shingles on the back on the triage note by ED nurse but neither ER physician or admitting hospitalist found evidence of a rash. Patient had Brain CT in ER which does not show acute abnormality. Head/neck CTA revealed 60-65% narrowing at the origin of the right internal carotid artery and opacification of the left sphenoid sinus. He was admitted for CVA work up. ST consulted as part of CVA work up. BSE 01/31/2025 revealed coughing w/ limited tsp sips of thin liquids, good tolerance of purees. He was recommended NPO w/ meds crushed in puree w/ plan for MBSS today to further assess risk for aspiration prior to diet advancement. Medical History Dysphagia TIA (transient ischemic attack) Depression Psychosis Vascular dementia Type II diabetes mellitus End stage kidney disease Convulsion Hyperlipemia Legal blindness GERD (gastroesophageal reflux disease) Dependence on renal dialysis Weakness UTI (urinary tract infection) Current Diet Ordered: NPO Dentition: Natural Teeth and Missing Teeth Mental Status: Impaired Respiratory Status: Oxygenating on Room Air Penetration-Aspiration Scale Penetration-Aspiration Scale: OBJECTIVE ASSESSMENT OF SWALLOW FUNCTION (QUANTITATIVE – PER TRIAL): PENETRATION / ASPIRATION SCALE (GIRALDO): 1 = does not enter airway 2 = enters airway/above vocal folds/ejected 3 = enters airway/above vocal folds/not ejected 4 = enters airway/contacts vocal folds/ejected 5 = enters airway/contacts vocal folds/not ejected 6 = enters airway/below vocal folds/ejected 7 = enters airway/below vocal folds/not ejected despite effort 8 = enters airway/below vocal folds/no effort VIDEOFLOROSCOPIC SCALE SCORE (GIRALDO): Grade I = aspiration of material that has penetrated into the laryngeal vestibule, intact cough reflex Grade II = aspiration < 10 % of the bolus, intact cough reflex Grade III = aspiration of < 10 % of the bolus, reduced cough reflex or aspiration of > 10 % of the bolus, intact cough reflex Grade IV = aspiration of > 10 % of the bolus, reduced cough reflex Penetration-Aspiration Scale Score Thin Liquid via teaspoon: Result: 3= enters airways/above vocal folds/not ejected Thin Liquid via teaspoon Trial 2: Result: 1= does not enter airway Thin Liquid via small single sip: cup: Result: 8= enters airway/below vocal folds/no effort [place] Thick Liquid via teaspoon: Result: 1= does not enter airway [place] Thick Liquid via large single sip: cup: Result: 2= enter airway/above vocal folds/ejected Pudding via teaspoon: Result: 1= does not enter airway Comment: Esophageal screen - Complete clearance. 03/27 Cookie: Result: 1= does not enter airway [place] Thick Liquid via sequential sips:straw: Result: 2= enter airway/above vocal folds/ejected [place] Thick Liquid via small single sip: cup: Result: 1= does not enter airway Thin Liquid via small single sip: cup Chin tuck: Result: 2= enter airway/above vocal folds/ejected Thin Liquid via small single sip: cup Chin tuck Trial 2: Result: 2= enter airway/above vocal folds/ejected Oral Phase Labial Seal: Escape progressing to mid-chin Tongue Control During Bolus Hold: Posterior escape of greater than half of bolus Bolus Preparation/Mastication: Disorganized chewing/mashing with solid pieces of bolus unchewed Bolus Transport/Lingual Motion: Repetitive/disorganized tongue motion (And slowed) Oral Residue: Residue collection on oral structures Pharyngeal Phase Initiation of Pharyngeal Swallow: Bolus head in pyriforms Soft Palate Elevation: Trace column of contrast/air between soft palate and pharyngeal wall Laryngeal Elevation: Partial superior movement thyroid cart/partial apprx aryt-epig petiole Anterior Hyoid Excursion: Partial anterior movement Epiglottic Movement: Complete inversion Laryngeal Vestibule Closure at Height of Swallow: Incomplete; narrow column of air/contrast in laryngeal vestibule Pharyngeal Stripping Wave: Present - complete Pharyngoesophageal Segment Opening: Parital distension and partial duration; parital obstruction of flow Tongue Base Retraction: Trace column of contrast between tongue base & post. pharyngeal wall Pharyngeal Residue: Trace residue within or on pharyngeal structures Esophageal Phase Esophageal Clearance: Esophageal retention (Trace retention in the UES/upper esophagus) Diagnosis/Impression Diagnosis: Moderate oropharyngeal dysphagia R13.12 MBS Impressions: Pt required frequent verbal and occ tactile cues to maintain optimal posture for safe swallowing and to stop leaning forward during MBSS. The oral phase is primarily marked by... -Poor bolus control w/ frequent premature posterior loss of >1/2 of liquids to the pyriform sinuses prior to swallow onset. -Slowed, lingual pumping for A-P transport. -Disorganized, prolonged chewing of 1/4 cookie w/ small pieces un-chewed. Recommend soft and bite size textures. The pharyngeal phase is primarily marked by... -Mildly decreased TB retraction w/ overall good pharyngeal motility and only trace pharyngeal residues. -Decreased airway closure due to decreased anterior hyoid excursion and laryngeal elevation w/ SILENT aspiration of thin liquids via cup. Liquids via straw resulted in increased depth of laryngeal penetration w/ mildly/nectar thick liquids. Pt is recommended for mildly thick liquids via cup to decrease risk for aspiration. Recommendations Diet: Soft and Bite Sized Textures and Mildly Thick Liquids Comment: Oral care after meals Medications crushed in applesauce Compensatory Strategies: Small Bites, Small Sips, No Straws, Slow Rate, Alternate bites/solids and sips/liquids, Sitting upright and Remain sitting upright for 30 minutes after PO intake Supervision: Total Feed Recommend Repeat Modified Barium Swallow: TBD (Some difficulty w/ command following. If pt is able to participate in oropharyngeal exercise program consistently, would consider repeat MBSS in 3-5 weeks to re-assess swallow function to consider diet advancement of liquids.) Need for Skilled Speech Therapy Services: Yes Comment: -Train the patient, family, and staff in use of strategies to decrease risk for aspiration. -Ongoing assessment of diet tolerance of recommended textures. Trials of thin liquids by cup w/ COT[employer] BALER only w/ implementation of chin tuck strategy. Would not recommend diet advancement of liquids prior to a repeat MBSS. -Train the patient in oral motor and oropharyngeal exercise program to improve bolus control, anterior hyoid excursion, and swallow onset (lingual resistance, lingual coordination exercises, effortful, CTAR). Education Completed: 1. Described result of evaluation. and 7. Pt requires further education on strategies & risks. Status Active ST Patient: Active Contact Information [facility] Speech Therapy:: Merary Smith M.A. CCC-[employer] BALER Speech-Language Pathologist [address] [address] [email or web address] [phone]
--- NOTE | 2025-02-01 09:21 | PCM.PN.HOSP ---
Reason for Visit Chief Complaint: Altered mental status Objective Data Objective Data Vital Signs: Vital Signs Temp Pulse Resp BP Pulse Ox O2 Del Method 97.8 F 65 16 184/87 H 95 Room Air 02/01/25 02:33 02/01/25 02:33 02/01/25 02:33 02/01/25 02:33 02/01/25 02:33 02/01/25 04:00 Oxygen Delivery Method Room Air Weight: 183 lb 13.848 oz Body Mass Index (BMI) 24.9 Intake & Output: Intake and Output for Last 24 Hours 01/30/25 01/31/25 02/01/25 23:59 23:59 23:59 Intake Total 754.17 / 754.17 278.33 / 278.33 Balance 754.17 / 754.17 278.33 / 278.33 Lab / Micro Data 02/01/25 05:40 02/01/25 05:40 Labs: Laboratory Results - last 24 hr 01/31/25 09:58: WBC 9.4, RBC 2.79 L, Hgb 9.3 L, Hct 27.7 L, MCV 99.3 H, MCH 33.3 H, MCHC 33.6, RDW Std Deviation 49.5 H, RDW Coeff of Corina 13.9, Plt Count 263, MPV 9.5, Immature Gran % (Auto) 0.400, Neut % (Auto) 67.0, Lymph % (Auto) 23.1, [place] % (Auto) 5.5, Eos % (Auto) 3.5, Baso % (Auto) 0.5, Absolute Neuts (auto) 6.3, Absolute Lymphs (auto) 2.17, Nucleated RBC % 0, Sodium 141, Potassium 4.1, Chloride 101, Carbon Dioxide 23.4, Anion Gap 17 H, BUN 72 H, Creatinine 7.93 H*, Estim Creat Clear Calc 9.65 L*, Est GFR (MDRD) Non-Af 7 L, BUN/Creatinine Ratio 9.1 L, Glucose 309 H, Lactic Acid 1.2, Calcium 8.8, Magnesium 2.6 H, Troponin T High Sens 100 H* 01/31/25 12:30: Troponin T Hi Sens 2 Hr 94 H* 01/31/25 14:00: Troponin T Hi Sens 4Hr 97 H* 01/31/25 16:21: POC Glucose 109 H 02/01/25 00:34: POC Glucose 99 02/01/25 05:40: WBC 10.3, RBC 2.83 L, Hgb 9.4 L, Hct 28.6 L, MCV 101.1 H, MCH 33.2 H, MCHC 32.9, RDW Std Deviation 50.2 H, RDW Coeff of Corina 14.0, Plt Count 281, MPV 9.6, Immature Gran % (Auto) 0.300, Neut % (Auto) 57.5, Lymph % (Auto) 29.7, [place] % (Auto) 7.5, Eos % (Auto) 4.4, Baso % (Auto) 0.6, Absolute Neuts (auto) 5.9, Absolute Lymphs (auto) 3.06, Nucleated RBC % 0, Sodium 144, Potassium 4.2, Chloride 106, Carbon Dioxide 21.0, Anion Gap 17 H, BUN 73 H, Creatinine 8.04 H*, Estim Creat Clear Calc 9.52 L*, Est GFR (MDRD) Non-Af 7 L, BUN/Creatinine Ratio 9.0 L, Glucose 76, Hemoglobin A1c 6.4 H, Calcium 8.6, Triglycerides 261 H, Cholesterol 225 H, LDL Cholesterol, Calc 148, VLDL Cholesterol 52 H, HDL Cholesterol 29 L, Cholesterol/HDL Ratio 7.79, TSH 0.868 02/01/25 06:19: POC Glucose 77 Radiography Diagnostic Testing: Radiology Impression Brain CT 01/31/25 09:45 IMPRESSION: 1. No evidence of acute ischemia or hemorrhage. Several sites of encephalomalacia in the watershed, bilateral parietal lobes and left occipital lobe. 2. Sclerosis, thickening and opacification left sphenoid sinus. Findings suggestive of chronic sinusitis. Fungal colonization is a consideration as well. Reading Location: [id number] Chest X-Ray 01/31/25 10:25 IMPRESSION: No acute abnormality Reading Location: [facility] Head/Neck CTA 01/31/25 11:47 IMPRESSION: 60-65% narrowing at the origin of the right internal carotid artery. Opacification of the left sphenoid sinus. Stroke Alert: 65% narrowing of Left ICA The critical findings in the findings and impression above were relayed directly by me by telephone to Clifton La on 01/31/2025 at 12:51 pm with readback verification. Reading Location: [facility] Facial/Sinus 01/31/25 12:05 IMPRESSION: Opacification of the left sphenoid sinus with calcifications. Mucosal thickening at the base of the right maxillary sinus. Reading Location: [facility] Echocardiogram 01/31/25 12:07 Interpretation Summary Mild concentric left ventricular hypertrophy. Mild posterior and lateral hypokinesis. Estimated LVEF 60%. Stage I diastolic dysfunction. Mildly thickened anterior mitral valve leaflet. Equivocal anterior mitral valve leaflet prolapse. Mild posteriorly directed mitral valve regurgitation. Ordering Physician: Clifton La Performed By: Davi Dozier, [facility] [[email or web address]] Brain MRI 01/31/25 12:22 IMPRESSION: No evidence of acute infarct on this exam. Advanced chronic small-vessel ischemic changes with numerous scattered old cortical infarcts throughout the bilateral cerebral hemispheres, and multiple old lacunar infarcts in the ricks radiata and bilateral basal ganglia. Reading Location: [facility] Physical Exam Narrative In afternoon, patient went down from standing to lay down position on the floor near the door, unwitnessed. As per the nursing staff he hit his head and complaining of right knee pain. No bruise. CT head and right knee x-ray ordered Physical exam: General: Awake. Less confused than yesterday. Noncooperative. HEENT: Atraumatic, PERRLA, EOMI, Normocephalic. Oral: Oral mucosa dry. No Gingival or Mucosal Lesions/ Ulcerations/vascular lesions seen Neck: Supple, No JVD, Negative Carotid Bruits Chest wall/Lungs: Air entry diminished in bilateral lung bases. No crepitation/rhonchi Cardiovascular: Regular rate and rhythm, Normal S1,S2, No M/G/R Abdomen: Bowel Sounds Present, Soft, Non Tender, Non-Distended : Palpable thrill over left arm AV fistula No renal angle tenderness. No suprapubic tenderness. Extremities: No edema, Capillary Refill Less than 3 Seconds Skin: No rashes, No breakdown Musculoskeletal: Left knee pain. No Tenderness to Palpation of Joints or Extremities Neurological: Confused, no active seizure. Sensory and motor system could not be examined. Speech slurred. Chronic language deficit Psych/Mental Status: Confused disoriented, flat affect. Vascular dementia Assessment & Plan Assessment/Plan (1) Altered mental status: PLAN: Plan 69-year-old gentleman was sent to ED from senior living for altered mental status and concern for stroke. 1. Acute encephalopathy possible metabolic encephalopathy with slurred speech, concern for stroke: Patient is being admitted in PCU. CT head does not show evidence of acute ischemia or hemorrhage. PT, OT, speech therapy/swallow evaluation and management, nursing NIH stroke scale, BP and glucose monitoring and control as per stroke protocol. TSH, A1c fasting lipid profile tomorrow AM. MRI brain and 2D echo with bubble contrast study ordered. Has started on baby aspirin and high intensity statin. 02/01: MRI brain does not show evidence of acute infarct but has advanced chronic known small ischemic changes with numerous old cortical infarcts throughout bilateral cerebral hemispheres and multiple lacunar infarcts in ricks radiata and bilateral basal ganglia consistent with history of vascular dementia. CTA head and neck also shows 60 to 65% narrowing of the origin of right ICA. Acute stroke ruled out. TSH normal. Lipid profile shows triglyceride 261, TC 225. A1c 6.4. Patient on baby aspirin and Plavix. Patient on maximum dose of atorvastatin but is refusing since admission stating that she does not want to eat. No valid reason given. Patient is not allergic. 2. Hypertension: Blood pressure is elevated, 177/79, 174/75 but within BP parameters of stroke. Monitor BP. 02/01: Blood pressure is 150/74. 3. DM type II:A1c 8.0 on 11/02/2024. Glucose 309. Accu-Chek before meals and at bedtime with Humalog sliding scale coverage and hypoglycemia protocol. 01/22 glucose is between 77-97. A1c 6.4. Avoid hypoglycemia. Not on any scheduled insulin. 4. Elevated troponin: Elevated troponin possible due to ESRD on hemodialysis. Patient does not have chest pain or shortness of breath or other acute cardiac symptoms. Troponin 100. Follow the troponin trends 5. 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 He is consulted. Patient has left arm AV fistula on probably Friday and Friday. Abdomen/abdomen: Patient had hemodialysis today. 6. History of seizure/convulsion: Patient on levetiracetam 500 mg p.o. twice daily, changed to IV as patient is n.p.o. 7. Vascular dementia, psychosis: Home medication reconciliation done 8. GERD: PPI 9. CT head reported opacification, sclerosis thickening of left Tesuloid sinus with possibility of fungal colonization/chronic sinusitis. CT sinus shows chronic opacification of left sphenoid sinus with calcification. Does not seem acute sinusitis. 10. Fall from standing position with pain left knee: Repeat CT head today, 02/01 does not show acute change. Left knee x-ray ordered. Pending DVT prophylaxis: High risk, heparin 5000 units subcutaneous twice daily. CODE STATUS: Could not go in the detail as patient altered mental status and does not have capacity to understand but he loosely said he wants ventilation and CPR. For now full code Microbiology Past 72 Hours 01/31/25 09:57 Blood Culture (Wb) - Right Hand Bacteria Detection (PCR) - Final Strep not Strep pneumo 01/31/25 09:57 Blood Culture (Wb) - Right Hand Blood Culture - Preliminary Laboratory Results 02/01/25 00:34: POC Glucose 99 02/01/25 05:40: WBC 10.3, RBC 2.83 L, Hgb 9.4 L, Hct 28.6 L, MCV 101.1 H, MCH 33.2 H, MCHC 32.9, RDW Std Deviation 50.2 H, RDW Coeff of Corina 14.0, Plt Count 281, MPV 9.6, Immature Gran % (Auto) 0.300, Neut % (Auto) 57.5, Lymph % (Auto) 29.7, [place] % (Auto) 7.5, Eos % (Auto) 4.4, Baso % (Auto) 0.6, Absolute Neuts (auto) 5.9, Absolute Lymphs (auto) 3.06, Nucleated RBC % 0, Sodium 144, Potassium 4.2, Chloride 106, Carbon Dioxide 21.0, Anion Gap 17 H, BUN 73 H, Creatinine 8.04 H*, Estim Creat Clear Calc 9.52 L*, Est GFR (MDRD) Non-Af 7 L, BUN/Creatinine Ratio 9.0 L, Glucose 76, Hemoglobin A1c 6.4 H, Calcium 8.6, Triglycerides 261 H, Cholesterol 225 H, LDL Cholesterol, Calc 148, VLDL Cholesterol 52 H, HDL Cholesterol 29 L, Cholesterol/HDL Ratio 7.79, TSH 0.868 02/01/25 06:19: POC Glucose 77 02/01/25 14:25: POC Glucose 97 Clinical Impression(s) from Imaging Studies Brain CT 01/31/25 09:45 IMPRESSION: 1. No evidence of acute ischemia or hemorrhage. Several sites of encephalomalacia in the watershed, bilateral parietal lobes and left occipital lobe. 2. Sclerosis, thickening and opacification left sphenoid sinus. Findings suggestive of chronic sinusitis. Fungal colonization is a consideration as well. Reading Location: [facility] Chest X-Ray 01/31/25 10:25 IMPRESSION: No acute abnormality Reading Location: [facility] Head/Neck CTA 01/31/25 11:47 IMPRESSION: 60-65% narrowing at the origin of the right internal carotid artery. Opacification of the left sphenoid sinus. Stroke Alert: 65% narrowing of Left ICA The critical findings in the findings and impression above were relayed directly by me by telephone to Clifton La on 01/31/2025 at 12:51 pm with readback verification. Reading Location: [facility] Facial/Sinus 01/31/25 12:05 IMPRESSION: Opacification of the left sphenoid sinus with calcifications. Mucosal thickening at the base of the right maxillary sinus. Reading Location: [facility] Echocardiogram 01/31/25 12:07 Interpretation Summary Mild concentric left ventricular hypertrophy. Mild posterior and lateral hypokinesis. Estimated LVEF 60%. Stage I diastolic dysfunction. Mildly thickened anterior mitral valve leaflet. Equivocal anterior mitral valve leaflet prolapse. Mild posteriorly directed mitral valve regurgitation. Ordering Physician: Clifton La Performed By: Davi Dozier [facility] Brain MRI 01/31/25 12:22 IMPRESSION: No evidence of acute infarct on this exam. Advanced chronic small-vessel ischemic changes with numerous scattered old cortical infarcts throughout the bilateral cerebral hemispheres, and multiple old lacunar infarcts in the ricks radiata and bilateral basal ganglia. Reading Location: [facility] Brain CT 02/01/25 15:40 IMPRESSION: 1. No acute intracranial abnormality. 2. Significant left paranasal sinus disease. Associated intrasinus calcification which usually occurs in the setting of chronic sinusitis and can favor a fungal sinus infection. Reading Location: [facility] Laboratory Results 01/31/25 09:58: WBC 9.4, RBC 2.79 L, Hgb 9.3 L, Hct 27.7 L, MCV 99.3 H, MCH 33.3 H, MCHC 33.6, RDW Std Deviation 49.5 H, RDW Coeff of Corina 13.9, Plt Count 263, MPV 9.5, Immature Gran % (Auto) 0.400, Neut % (Auto) 67.0, Lymph % (Auto) 23.1, [place] % (Auto) 5.5, Eos % (Auto) 3.5, Baso % (Auto) 0.5, Absolute Neuts (auto) 6.3, Absolute Lymphs (auto) 2.17, Nucleated RBC % 0, Sodium 141, Potassium 4.1, Chloride 101, Carbon Dioxide 23.4, Anion Gap 17 H, BUN 72 H, Creatinine 7.93 H*, Estim Creat Clear Calc 9.65 L*, Est GFR (MDRD) Non-Af 7 L, BUN/Creatinine Ratio 9.1 L, Glucose 309 H, Lactic Acid 1.2, Calcium 8.8, Magnesium Pending, Troponin T High Sens 100 H* Clinical Impression(s) from Imaging Studies Brain CT 01/31/25 09:45 IMPRESSION: 1. No evidence of acute ischemia or hemorrhage. Several sites of encephalomalacia in the watershed, bilateral parietal lobes and left occipital lobe. 2. Sclerosis, thickening and opacification left sphenoid sinus. Findings suggestive of chronic sinusitis. Fungal colonization is a consideration as well. Reading Location: [facility] Chest X-Ray 01/31/25 10:25 IMPRESSION: No acute abnormality Reading Location: [facility] Charges/Coding Visit Charges Inpatient E&M: 31044 Subs Hosp L2 NIHSS NIHSS Nursing Documentation NIHSS Nursing Documentation: NIHSS: Ischemic Stroke/TIA Start: 01/31/25 12:22 Text: For PCU Patients: NIH and Neuro Check every 4 Status: Active hours, PRN and with change in RN caregiver. Freq: Q12H Protocol: Activity Type Activity Date Activity User E-sign Co-sign Detail Recorded Client Recorded Date Recorded By Document 02/01/25 07:30 JS desktop 02/01/25 07:48 JS 02/01/25 07:30 NIH Stroke Scale [NIHSS] A score of 0 is "normal" or asymptomatic . Total possible score is 42. Inpatient: RN or Physician to activate a stroke alert for onset of new stroke symptoms or with NIHSS increase >/= 3 points. Following change in neurological status, NIHSS will be performed per physician order or more frequently PRN. -1a. Level of Consciousness 0 - Alert; keenly responsive -1c. LOC Commands 2 - Performs NEITHER task correctly -4. Facial Palsy 0 - Normal symmetrical movements -5a. Left Arm 2 - Some effort against gravity; -5b. Right Arm 1 - Drift; arm drifts downward but doesn’t hit the bed -6a. Left Leg 3 - No effort against gravity ; leg falls to bed immediately -6b. Right Leg 1 - Drift; leg falls by the end of 5- seconds, but does not hit bed -10. Dysarthria 2 - Severe dysarthria; -11. Extinction and Inattention 0 - No abnormality -Total 11 Query Text:A score of 0 is "normal" or asymptomatic. Total possible score is 42 . ED: Notify Physician for NIHSS increase by > / = 3 points. Inpatient: RN or Physician to activate a stroke alert for NIHSS increase of > / = 3 points. Coma Scale [Assess] -Eye Opening Spontaneous -Motor Obeys Commands -Verbal Confused [Total] -Coma Scale Total 14
[2025-02-01] MEDS: PureFlow B 2K Dialysis Soln 1 BAG 6 BAG PF (11:09)
[2025-02-01] MEDS: 0.9% Normal Saline 1,000 ML IV.SOLN. 1000 ML OPERA.SITE (11:09)
[2025-02-01] MEDS: 0.9% Saline Lock 10 ML Syringe IV (11:10)
--- NOTE | 2025-02-01 12:50 | CON.PCM.NE_ITS ---
Assessment and Plan: Neuro Assessment/Plan Telestroke Attending Consult Note 69 y/o man with h/o legal blindness, TIA, vascular dementia, seizures on keppra, GERD, DLD, ESRD on HD p/w from [facility] with altered mental status and slurred speech by the staff. There was also mention about shingles on the back. CT head- no acute intracranial process. CTA- DINA-60-65% and LICA-65% stenosis. MRI Brain - no acute stroke. A1c-6.4. LDL-148. Today, patient is undergoing HD during my exam and appears encephalopathic, He is drowsy, wakes up easily, moving all extremities against gravity, following simple commands with no obvious aphasia. He was started on acyclovir and vancomycine given positive blood cultures and concern for shingles. As per bedside RN, patient is confused at baseline. Diagnosis: Metabolic/infectious encephalopathy in the setting of positive blood cultures and high BG Plan: Continue home antiplatelets - ASA and plavix. Infectious workup for the source of infection. If no source found with no improvement then obtain MRI brain w/ aisha, EEG and obtain LP. I personally attended this patient and spent a total time of 70 minutes evaluating this patient including clinical assessment, review of chart, medical history imaging, and determining appropriate treatment and workup. HPI Consult Data Date of Consult: 02/01/25 HPI Narrative HPI Narrative: 69 y/o man with h/o legal blindness, TIA, vascular dementia, seizures on keppra, GERD, DLD, ESRD on HD p/w from [facility] with altered mental status and slurred speech by the staff. There was also mention about shingles on the back. CT head- no acute intracranial process. CTA- DINA-60-65% and LICA-65% stenosis. MRI Brain - no acute stroke. A1c-6.4. LDL-148. Today, patient is undergoing HD during my exam and appears encephalopathic, He is drowsy, wakes up easily, moving all extremities against gravity, following simple commands with no obvious aphasia. He was started on acyclovir and vancomycine given positive blood cultures and concern for shingles. As per bedside RN, patient is confused at baseline. [facility] Medical History Dysphagia TIA (transient ischemic attack) Depression Psychosis Vascular dementia Type II diabetes mellitus End stage kidney disease Convulsion Hyperlipemia Legal blindness GERD (gastroesophageal reflux disease) Dependence on renal dialysis Weakness UTI (urinary tract infection) Home Medications Medication Instructions Recorded Last Taken Type acetaminophen 325 mg capsule 650 mg PO Q6H PRN fever o r pain 11/04/24 Unknown History acetaminophen 650 mg rectal 650 mg SC Q4H PRN fever or pain 11/04/24 Unknown History suppository aluminum-magnesium hydroxide 225 30 ml PO Q4H PRN PRN acid reflux 11/04/24 Unknown History mg-200 mg/5 mL oral suspension amlodipine 10 mg tablet 5 mg PO DAILY bp 11/04/24 Un known History aspirin 81 mg capsule 81 mg PO DAILY blood thinner 11/04/24 Unknown History atorvastatin 40 mg tablet 40 mg PO DAILY cholesterol 0 11/04/24 Unknown History clopidogrel 75 mg tablet 75 mg PO DAILY heart 5 Unknown History dulaglutide 3 mg/0.5 mL 3 mg subcut MO DM 11/04/24 U nknown History subcutaneous pen injector (Trulicity) insulin glargine 100 unit/mL (3 18 unit subcut .qam dm 11/04/24 Unknown History mL) subcutaneous pen (Lantus Solostar U-100 Insulin) insulin lispro 100 unit/mL 1 unit subcut TID dm Unknown History subcutaneous pen levetiracetam 500 mg tablet 500 mg PO BID seizures Unknown History losartan 25 mg tablet 50 mg PO DAILY 11/04/24 Unkn own History magnesium hydroxide 400 mg/5 mL 30 ml PO DAILY PRN con stipation 11/04/24 Unknown History oral suspension (Milk of Magnesia) metoprolol tartrate 25 mg tablet 25 mg PO BID HTN 10/22 07/16 Unknown History omega-3 acid ethyl esters 1 gram 1 cap PO BID suppleme nt 11/04/24 Unknown History capsule ondansetron 4 mg disintegrating 4 mg PO Q8H PRN nausea /vomiting 11/04/24 Unknown History tablet sertraline 25 mg tablet 50 mg PO BID mood 11/04/24 U nknown History sertraline 50 mg tablet 50 mg PO BID 11/04/24 Unknow n History diphenhydramine HCl 25 mg capsule 25 mg PO PRN allergy 01/31/25 Unknown History (Allergy (diphenhydramine)) diphenhydramine HCl 50 mg capsule 50 mg PO PRN anaphyl axsis/allergy 01/31/25 Unknown History diphenhydramine HCl 50 mg/mL 25 mg IM PRN anaphylaxsis 01/31/25 Unknown History injection solution diphenhydramine HCl 50 mg/mL 50 mg IM PRN anaphylaxisi s 01/31/25 Unknown History injection solution epinephrine HCl (PF) 1 mg/mL (1 0.3 mg IM PRN anaphyla xsis 01/31/25 Unknown History mL) injection solution epoetin beta, methoxy peg 50 30 mcg IV QMONTH used for dialysis 01/31/25 Unknown History mcg/0.3 mL injection syringe (Mircera) iron sucrose 50 mg iron/2.5 mL 50 mg IV QWEEK dialysis 01/31/25 Unknown History intravenous solution methylprednisolone sodium succ 125 125 mg IM PRN anaph ylaxsis/allergy 01/31/25 Unknown History mg solution for injection metoclopramide HCl 5 mg tablet 10 mg PO .as directed n ausea/ 01/31/25 Unknown History (Reglan) vomiting promethazine 25 mg tablet 25 mg PO Q8H PRN nausea/vomm iting 01/31/25 Unknown History sevelamer carbonate 800 mg tablet 800 mg PO TID high B P 01/31/25 Unknown History sodium zirconium cyclosilicate 10 10 g PO .qweeksunday hypokalemia 01/31/25 01/30/25 History gram oral powder packet (Lokelma) valacyclovir 500 mg tablet 500 mg PO TID shingles 01/22 Unknown History (Valtrex) vitamin B complex-vitamin C-folic 1 tab PO DAILY suppl ement 01/31/25 Unknown History acid 0.8 mg tablet (Katelynn-Tiago) Allergy/AdvReac Type Severity Reaction Status Date / Time No Known Allergies Allergy Verified 01/31/25 09:45 Family History unable to obtain Surgical History unable to obtain Social History Smoking Status: Former smoker Vital Signs Vital Signs Vital Signs: 01/31/25 14:44 01/31/25 16:15 01/31/25 19:50 Temperature 97.8 F 97.9 F Temperature Source Oral Oral Pulse Rate 68 69 Pulse Strength Respiratory Rate 16 16 Respiratory Effort Respiratory Depth Respiratory Pattern Blood Pressure 186/81 H 188/78 H Blood Pressure Mean 116 114 Blood Pressure Source Monitor Monitor Blood Pressure Position Semi-Fowlers Semi-Fowlers Blood Pressure Location Right Arm Right Arm Pulse Ox 95 94 96 Oxygen Delivery Method Room Air Room Air Room Air 01/31/25 20:05 01/31/25 20:59 01/31/25 22:00 Temperature Temperature Source Pulse Rate 69 Pulse Strength Normal (2+) Respiratory Rate Respiratory Effort Normal Non-Labored Respiratory Depth Normal Respiratory Pattern Normal Blood Pressure 188/78 H Blood Pressure Mean Blood Pressure Source Blood Pressure Position Blood Pressure Location Pulse Ox Oxygen Delivery Method Room Air 02/01/25 02:33 02/01/25 04:00 02/01/25 07:11 Temperature 97.8 F Temperature Source Temporal Pulse Rate 65 Pulse Strength Respiratory Rate 16 Respiratory Effort Normal Non-Labored Respiratory Depth Normal Respiratory Pattern Normal Blood Pressure 184/87 H Blood Pressure Mean 119 Blood Pressure Source Monitor Blood Pressure Position Supine Blood Pressure Location Right Arm Pulse Ox 95 Oxygen Delivery Method Room Air Room Air Room Air 02/01/25 09:54 02/01/25 09:54 02/01/25 10:00 Temperature 98.2 F Temperature Source Oral Pulse Rate 56 L 58 L 56 L Pulse Strength Respiratory Rate 14 14 16 Respiratory Effort Respiratory Depth Respiratory Pattern Blood Pressure 188/86 H 188/80 H 192/87 H Blood Pressure Mean 120 116 122 Blood Pressure Source Monitor Monitor Monitor Blood Pressure Position Semi-Fowlers Semi-Fowlers Semi-Fowlers Blood Pressure Location Right Arm Right Arm Right Arm Pulse Ox 100 100 100 Oxygen Delivery Method Room Air Room Air Room Air 02/01/25 10:15 02/01/25 10:30 02/01/25 10:45 Temperature Temperature Source Pulse Rate 54 L 57 L 57 L Pulse Strength Respiratory Rate 16 14 14 Respiratory Effort Respiratory Depth Respiratory Pattern Blood Pressure 189/82 H 196/75 H 199/73 H Blood Pressure Mean 117 115 115 Blood Pressure Source Monitor Monitor Monitor Blood Pressure Position Semi-Fowlers Semi-Fowlers Semi-Fowlers Blood Pressure Location Right Arm Right Arm Right Arm Pulse Ox 100 100 96 Oxygen Delivery Method Room Air Room Air Room Air 02/01/25 11:00 02/01/25 11:15 02/01/25 11:30 Temperature Temperature Source Pulse Rate 58 L 63 60 Pulse Strength Respiratory Rate 16 16 16 Respiratory Effort Respiratory Depth Respiratory Pattern Blood Pressure 163/79 H 160/72 H 140/71 H Blood Pressure Mean 107 101 94 Blood Pressure Source Monitor Monitor Monitor Blood Pressure Position Semi-Fowlers Semi-Fowlers Semi-Fowlers Blood Pressure Location Right Arm Right Arm Right Arm Pulse Ox 99 98 98 Oxygen Delivery Method Room Air Room Air Room Air 02/01/25 11:45 02/01/25 12:00 02/01/25 12:15 Temperature Temperature Source Pulse Rate 57 L 55 L 52 L Pulse Strength Respiratory Rate 14 14 16 Respiratory Effort Respiratory Depth Respiratory Pattern Blood Pressure 176/70 H 156/73 H 131/75 H Blood Pressure Mean 105 100 93 Blood Pressure Source Monitor Monitor Blood Pressure Position Semi-Fowlers Semi-Fowlers Blood Pressure Location Right Arm Right Arm Pulse Ox 98 96 96 Oxygen Delivery Method Room Air Room Air Room Air Weight Weight: 83.4 kg Body Mass Index (BMI) 24.9 EEG Results Procedure Details EEG Procedure Details: LEONARDO RUELAS is a 69 year old M with a past medical history of , who presents for evaluation of Electroencephalogram on DATE at TIME Physical Exam Narrative General: The patient appears drowsy, getting HD, wakes up easily on verbal stimulus. Mental Status: Follows simple commands with no much of verbal output Cranial nerves: Legally blind at baseline. Symmetric face. Motor: No drift noticed in b/l UE and able to move b/l LE spontaneously against gravity. S ensation: Unable to assess given his encephalopathy. Coordination: Unable to assess given his encephalopathy. Gait: deferred. Lab / Micro Data 02/01/25 05:40 02/01/25 05:40 Labs: Laboratory Results - last 24 hr 01/31/25 12:30: Troponin T Hi Sens 2 Hr 94 H* 01/31/25 14:00: Troponin T Hi Sens 4Hr 97 H* 01/31/25 16:21: POC Glucose 109 H 02/01/25 00:34: POC Glucose 99 02/01/25 05:40: WBC 10.3, RBC 2.83 L, Hgb 9.4 L, Hct 28.6 L, MCV 101.1 H, MCH 33.2 H, MCHC 32.9, RDW Std Deviation 50.2 H, RDW Coeff of Corina 14.0, Plt Count 281, MPV 9.6, Immature Gran % (Auto) 0.300, Neut % (Auto) 57.5, Lymph % (Auto) 29.7, [place] % (Auto) 7.5, Eos % (Auto) 4.4, Baso % (Auto) 0.6, Absolute Neuts (auto) 5.9, Absolute Lymphs (auto) 3.06, Nucleated RBC % 0, Sodium 144, Potassium 4.2, Chloride 106, Carbon Dioxide 21.0, Anion Gap 17 H, BUN 73 H, C reatinine 8.04 H*, Estim Creat Clear Calc 9.52 L*, Est GFR (MDRD) Non-Af 7 L, B UN/Creatinine Ratio 9.0 L, Glucose 76, Hemoglobin A1c 6.4 H, Calcium 8.6, T riglycerides 261 H, Cholesterol 225 H, LDL Cholesterol, Calc 148, VLDL Cholesterol 52 H, HDL Cholesterol 29 L, Cholesterol/HDL Ratio 7.79, TSH 0.868 02/01/25 06:19: POC Glucose 77 Micro: Microbiology 01/31/25 09:57 Blood Culture (Wb) - Right Hand Blood Culture - Preliminary Imaging Radiology Impression Head/Neck CTA 01/31/25 11:47 IMPRESSION: 60-65% narrowing at the origin of the right internal carotid artery. Opacification of the left sphenoid sinus. Stroke Alert: 65% narrowing of Left ICA The critical findings in the findings and impression above were relayed directly by me by telephone to Clifton La on 01/31/2025 at 12:51 pm with readback verification. [facility] Facial/Sinus 01/31/25 12:05 IMPRESSION: Opacification of the left sphenoid sinus with calcifications. Mucosal thickening at the base of the right maxillary sinus. Reading Location: [facility] Echocardiogram 01/31/25 12:07 Interpretation Summary Mild concentric left ventricular hypertrophy. Mild posterior and lateral hypokinesis. Estimated LVEF 60%. Stage I diastolic dysfunction. Mildly thickened anterior mitral valve leaflet. Equivocal anterior mitral valve leaflet prolapse. Mild posteriorly directed mitral valve regurgitation. Ordering Physician: Clifton La Performed By: Davi Dozier, ORSY Brain MRI 01/31/25 12:22 IMPRESSION: No evidence of acute infarct on this exam. Advanced chronic small-vessel ischemic changes with numerous scattered old cortical infarcts throughout the bilateral cerebral hemispheres, and multiple old lacunar infarcts in the ricks radiata and bilateral basal ganglia. Reading Location: [facility] Active Medications Active Medications Active Medications: Current Medications Generic Name Dose Route Start Last Admin Trade Name Freq PRN Reason Stop Dose Admin Acetaminophen 650 mg 01/31/25 11:48 Acetaminophen 325 Mg Tablet PO Q6H PRN PRN Pain 1-10 Or Fever >100.7 Acetaminophen 650 mg 01/31/25 12:22 Acetaminophen 325 Mg Tablet PO Q4H PRN PRN Pain 1-10 Or Fever>99.6 Acyclovir 200 mg 01/31/25 22:00 01/31/25 21:01 Acyclovir 200 Mg Capsule PO Not Given Q12 LILLIAN Aspirin 81 mg 02/01/25 08:00 Aspirin 81 Mg Tab.Chew PO BREAKFAST LILLIAN Atorvastatin Calcium 80 mg 01/31/25 22:00 01/31/25 18:40 Atorvastatin Calcium 80 Mg Tablet PO Not Given On Hold: 01/31/25 22:00 QHS LILLIAN Clopidogrel Bisulfate 75 mg 02/01/25 10:00 Clopidogrel Bisulfate 75 Mg Tablet PO DAILY LILLIAN Epinephrine HCl 0.3 mg 01/31/25 15:30 Epi Pen (Equiv) 0.3 Mg Syringe IM Q1H PRN ANAPHYLAXIS Glucagon 1 mg 01/31/25 12:22 Glucagon 1 Mg/Ml Syringe IM X1 PRN Hypoglycemia Protocol Hemodialysis Solution 6 bag 02/01/25 07:15 02/01/25 11:09 Pureflow B 2k Dialysis Soln 1 Bag PF 02/01/25 19:15 6 bag UD LILLIAN Administration Protocol Heparin Sodium (Porcine) 5,000 unit 01/31/25 22:00 01/31/25 21:00 Heparin Injection (Vial) 5,000 Unit/Ml Vial SC 5,000 unit Q12 LILLIAN Administration Sodium Chloride 250 mls @ 15 mls/hr 01/31/25 12:09 IV .[id number] PRN Saline Flush Sodium Chloride 250 mls @ 15 mls/hr 01/31/25 12:09 IV .[id number] PRN Additional IVPB Infusion Levetiracetam 500 mg/ Sodium 105 mls @ 420 mls/hr 01/31/25 12:22 01/31/25 22:41 Chloride IV Infused Q12 LILLIAN Infusion Dextrose 250 mls @ 0 mls/hr 01/31/25 12:22 Dextrose 10%-Water IV .Q0M PRN HYPOGLYCEMIA Protocol As Directed Vancomycin IV-PHARMACY TO DOSE 500 mls @ 250 mls/hr 02/01/25 10:00 1 each/ Sodium Chloride IV DAILY LILLIAN Protocol Insulin Human Lispro 0 unit 01/31/25 18:00 02/01/25 06:22 Insulin Lispro 100 Unit/Ml Insuln.Pen SC Not Given Q6 LILLIAN Protocol Metoprolol Tartrate 25 mg 01/31/25 22:00 01/31/25 20:59 Metoprolol Tartrate 25 Mg Tablet PO 25 mg BID LILLIAN Administration Protocol Nitroglycerin 0.4 mg 01/31/25 11:48 Nitroglycerin (Inpatient Use) 0.4 Mg Tab.Subl SL Q5M PRN CARDIAC/CHEST PAIN Pantoprazole Sodium 40 mg 02/01/25 10:00 Pantoprazole Sodium 40 Mg Tablet PO DAILY LILLIAN Senna/Docusate Sodium 2 tablet 01/31/25 22:00 01/31/25 21:00 Senna/Docusate Sodium 1 Tablet PO Not Given BID LILLIAN Sodium Chloride 10 - 40 ml 01/31/25 12:09 02/01/25 11:10 0.9% Saline Lock 10 Ml Syringe IV 40 ml UD PRN Administration SALINE FLUSH Sodium Chloride 1,000 ml 02/01/25 07:15 02/01/25 11:09 0.9% Normal Saline 1,000 Ml Iv.Soln. OPERA.SITE 02/01/25 19:14 1,000 ml X1 LILLIAN Administration Sodium Chloride 200 ml 02/01/25 07:14 0.9% Normal Saline 1,000 Ml Iv.Soln. IV 02/01/25 19:14 X1 PRN to maintain SBP >90mmHg during Dialysis NIHSS NIHSS Nursing Documentation NIHSS Nursing Documentation: NIHSS: Ischemic Stroke/TIA Start: 01/31/25 12:22 Text: For PCU Patients: NIH and Neuro Check every 4 Status: Complete hours, PRN and with change in RN caregiver. Freq: Q12H Protocol: Activity Type Activity Date Activity User E-sign Co-sign Detail Recorded Client Recorded Date Recorded By Document 02/01/25 07:30 JS desktop 02/01/25 07:48 JS 02/01/25 07:30 NIH Stroke Scale [NIHSS] A score of 0 is "normal" or asymptomatic . Total possible score is 42. Inpatient: RN or Physician to activate a stroke alert for onset of new stroke symptoms or with NIHSS increase >/= 3 points. Following change in neurological status, NIHSS will be performed per physician order or more frequently PRN. -1a. Level of Consciousness 0 - Alert; keenly responsive -1c. LOC Commands 2 - Performs NEITHER task correctly -4. Facial Palsy 0 - Normal symmetrical movements -5a. Left Arm 2 - Some effort against gravity; -5b. Right Arm 1 - Drift; arm drifts downward but doesn’t hit the bed -6a. Left Leg 3 - No effort against gravity ; leg falls to bed immediately -6b. Right Leg 1 - Drift; leg falls by the end of 5- seconds, but does not hit bed -10. Dysarthria 2 - Severe dysarthria; -11. Extinction and Inattention 0 - No abnormality -Total 11 Query Text:A score of 0 is "normal" or asymptomatic. Total possible score is 42 . ED: Notify Physician for NIHSS increase by > / = 3 points. Inpatient: RN or Physician to activate a stroke alert for NIHSS increase of > / = 3 points. Coma Scale [Assess] -Eye Opening Spontaneous -Motor Obeys Commands -Verbal Confused [Total] -Coma Scale Total 14 NIHSS 1a. Level of Consciousness: 1 - Not alert; Arousable by minor stimuli to obey, answer & respond 1b. LOC Questions: 1 - Answers ONE question correctly 1c. LOC Commands: 1 - Performs ONE task correctly 2. Best Gaze: 0 - Normal 3. Visual: 3 - Bilateral hemianopia (blind, including cortical blindness) 4. Facial Palsy: 0 - Normal symmetrical movements 5a. Left Arm: 0 - No drift; arm holds 90 (or 45) degrees for full 10 seconds 5b. Right Arm: 0 - No drift; arm holds 90 (or 45) degrees for full 10 seconds 6a. Left Le - Some effort against gravity; 6b. Right Le - Some effort against gravity; 7. Limb Ataxia: 0 - Absent 8. Sensory: 0 - Normal; no sensory loss 9. Best Language: 1 - Dyie-ox-fmgwceni aphasia; 10. Dysarthria: 1 = Llis-[id number] dysarthria; 11. Extinction and Inattention: 0 - No abnormality Total: 12
[2025-02-01] MEDS: levETIRAcetam IV 500 MG in 0.9% Normal Saline (100mL Bag) 100 ML 420 MG IV ×2 (14:29→22:41)
[2025-02-01] MEDS: Heparin Injection (Vial) 5,000 UNIT/ML VIAL 5000 UNIT SC ×2 (14:29→22:21)
--- NOTE | 2025-02-01 15:28 | CON.PCM.RE_ITS ---
Assessment & Plan Assessment/Plan (1) End stage kidney disease: PLAN: Hemodialysis today, see orders/flowsheets. Neurology on consult for evaluation of stroke. HPI Consult Data Date of Consult: 02/01/25 HPI Narrative Reason for Consultation: ESRD. HPI Narrative: LEONARDO RUELAS, is a 69 M who presents to the hospital with stroke. Nephrology on consultation in view of ESRD. He is well-known to me from outside clinic. History of ESRD, has been on dialysis. Recently switched half-way, moved to in [facility]. Presented with strokelike symptoms. Dialysis today, see orders. [facility], [facility] Medical History (Updated 02/01/25 @ 15:[address] Marina Odonnell MD) Dysphagia TIA (transient ischemic attack) Depression Psychosis Vascular dementia Type II diabetes mellitus End stage kidney disease Convulsion Hyperlipemia Legal blindness GERD (gastroesophageal reflux disease) Dependence on renal dialysis Weakness UTI (urinary tract infection) Home Medications Medication Instructions Recorded Last Taken Type acetaminophen 325 mg capsule 650 mg PO Q6H PRN fever o r pain 11/04/24 Unknown History acetaminophen 650 mg rectal 650 mg ND Q4H PRN fever or pain 11/04/24 Unknown History suppository aluminum-magnesium hydroxide 225 30 ml PO Q4H PRN PRN acid reflux 11/04/24 Unknown History mg-200 mg/5 mL oral suspension amlodipine 10 mg tablet 5 mg PO DAILY bp 11/04/24 Un known History aspirin 81 mg capsule 81 mg PO DAILY blood thinner 11/04/24 Unknown History atorvastatin 40 mg tablet 40 mg PO DAILY cholesterol 0 11/04/24 Unknown History clopidogrel 75 mg tablet 75 mg PO DAILY heart 5 Unknown History dulaglutide 3 mg/0.5 mL 3 mg subcut MO DM 11/04/24 U nknown History subcutaneous pen injector (Trulicity) insulin glargine 100 unit/mL (3 18 unit subcut .qam dm 11/04/24 Unknown History mL) subcutaneous pen (Lantus Solostar U-100 Insulin) insulin lispro 100 unit/mL 1 unit subcut TID dm Unknown History subcutaneous pen levetiracetam 500 mg tablet 500 mg PO BID seizures Unknown History losartan 25 mg tablet 50 mg PO DAILY 11/04/24 Unkn own History magnesium hydroxide 400 mg/5 mL 30 ml PO DAILY PRN con stipation 11/04/24 Unknown History oral suspension (Milk of Magnesia) metoprolol tartrate 25 mg tablet 25 mg PO BID HTN 10/22 07/16 Unknown History omega-3 acid ethyl esters 1 gram 1 cap PO BID suppleme nt 11/04/24 Unknown History capsule ondansetron 4 mg disintegrating 4 mg PO Q8H PRN nausea /vomiting 11/04/24 Unknown History tablet sertraline 25 mg tablet 50 mg PO BID mood 11/04/24 U nknown History sertraline 50 mg tablet 50 mg PO BID 11/04/24 Unknow n History diphenhydramine HCl 25 mg capsule 25 mg PO PRN allergy 01/31/25 Unknown History (Allergy (diphenhydramine)) diphenhydramine HCl 50 mg capsule 50 mg PO PRN anaphyl axsis/allergy 01/31/25 Unknown History diphenhydramine HCl 50 mg/mL 25 mg IM PRN anaphylaxsis 01/31/25 Unknown History injection solution diphenhydramine HCl 50 mg/mL 50 mg IM PRN anaphylaxisi s 01/31/25 Unknown History injection solution epinephrine HCl (PF) 1 mg/mL (1 0.3 mg IM PRN anaphyla xsis 01/31/25 Unknown History mL) injection solution epoetin beta, methoxy peg 50 30 mcg IV QMONTH used for dialysis 01/31/25 Unknown History mcg/0.3 mL injection syringe (Mircera) iron sucrose 50 mg iron/2.5 mL 50 mg IV QWEEK dialysis 01/31/25 Unknown History intravenous solution methylprednisolone sodium succ 125 125 mg IM PRN anaph ylaxsis/allergy 01/31/25 Unknown History mg solution for injection metoclopramide HCl 5 mg tablet 10 mg PO .as directed n ausea/ 01/31/25 Unknown History (Reglan) vomiting promethazine 25 mg tablet 25 mg PO Q8H PRN nausea/vomm iting 01/31/25 Unknown History sevelamer carbonate 800 mg tablet 800 mg PO TID high B P 01/31/25 Unknown History sodium zirconium cyclosilicate 10 10 g PO .qweeksunday hypokalemia 01/31/25 01/30/25 History gram oral powder packet (Lokelma) valacyclovir 500 mg tablet 500 mg PO TID shingles 01/22 Unknown History (Valtrex) vitamin B complex-vitamin C-folic 1 tab PO DAILY suppl ement 01/31/25 Unknown History acid 0.8 mg tablet (Katelynn-Tiago) Allergy/AdvReac Type Severity Reaction Status Date / Time No Known Allergies Allergy Verified 01/31/25 09:45 Family History unable to obtain Surgical History unable to obtain Social History Smoking Status: Former smoker ROS ROS Narrative Negative except above Physical Exam Narrative no obvious distress no pallor no icterus no JVD s1s2 no murmurs lungs clear abdomen soft no organomegaly Lab / Micro Data 02/01/25 05:40 02/01/25 05:40 Labs: Laboratory Results - last 24 hr 01/31/25 16:21: POC Glucose 109 H 02/01/25 00:34: POC Glucose 99 02/01/25 05:40: WBC 10.3, RBC 2.83 L, Hgb 9.4 L, Hct 28.6 L, MCV 101.1 H, MCH 33.2 H, MCHC 32.9, RDW Std Deviation 50.2 H, RDW Coeff of Corina 14.0, Plt Count 281, MPV 9.6, Immature Gran % (Auto) 0.300, Neut % (Auto) 57.5, Lymph % (Auto) 29.7, [place] % (Auto) 7.5, Eos % (Auto) 4.4, Baso % (Auto) 0.6, Absolute Neuts (auto) 5.9, Absolute Lymphs (auto) 3.06, Nucleated RBC % 0, Sodium 144, Potassium 4.2, Chloride 106, Carbon Dioxide 21.0, Anion Gap 17 H, BUN 73 H, C reatinine 8.04 H*, Estim Creat Clear Calc 9.52 L*, Est GFR (MDRD) Non-Af 7 L, B UN/Creatinine Ratio 9.0 L, Glucose 76, Hemoglobin A1c 6.4 H, Calcium 8.6, T riglycerides 261 H, Cholesterol 225 H, LDL Cholesterol, Calc 148, VLDL Cholesterol 52 H, HDL Cholesterol 29 L, Cholesterol/HDL Ratio 7.79, TSH 0.868 02/01/25 06:19: POC Glucose 77 02/01/25 14:25: POC Glucose 97 Micro: Microbiology 01/31/25 09:57 Blood Culture (Wb) - Right Hand Bacteria Detection (PCR) - Final Strep not Strep pneumo 01/31/25 09:57 Blood Culture (Wb) - Right Hand Blood Culture - Preliminary Imaging Radiology Impression Echocardiogram 01/31/25 12:07 Interpretation Summary Mild concentric left ventricular hypertrophy. Mild posterior and lateral hypokinesis. Estimated LVEF 60%. Stage I diastolic dysfunction. Mildly thickened anterior mitral valve leaflet. Equivocal anterior mitral valve leaflet prolapse. Mild posteriorly directed mitral valve regurgitation. Ordering Physician: Clifton La Performed By: Davi Dozier, [facility] Brain MRI 01/31/25 12:22 IMPRESSION: No evidence of acute infarct on this exam. Advanced chronic small-vessel ischemic changes with numerous scattered old cortical infarcts throughout the bilateral cerebral hemispheres, and multiple old lacunar infarcts in the ricks radiata and bilateral basal ganglia. Reading Location: [facility]
--- NOTE | 2025-02-01 15:40 | CT_ITS ---
PROCEDURE: BRAIN/HEAD WITHOUT CONTRAST 02/01/2025 REASON FOR EXAM: FALL AND HIT THE HEAD TECHNIQUE: Procedure Code: CTBR Modality: CT Procedure: BRAIN/HEAD WITHOUT CONTRAST Coronal and Sagittal reconstruction series were provided. One or more dose reduction techniques were used (e.g., Automated exposure control, adjustment of the mA and/or kV according to patient size, use of iterative reconstruction technique. RADIATION DOSE SUMMARY: CTDlvol: 47.06 mGy DLP: 890 mGycm COMPARISON: 01/31/2025 FINDINGS: BRAIN: No acute intraparenchymal hemorrhage. No mass lesion. No CT evidence for acute territorial infarct. No midline shift or extra-axial collection. Multiple old cerebral infarcts bilaterally with old lacunar infarcts in the bilateral basal ganglia and caudate heads. Patchy periventricular white matter low attenuation, likely microvascular ischemic changes. VENTRICLES: No hydrocephalus. ORBITS: The orbits are unremarkable. SINUSES AND MASTOIDS: Moderately opacified left sphenoid sinus with periosteal thickening and intrasinus calcification. The mastoid air cells are clear. SOFT TISSUES: No acute abnormality seen. No radiodense foreign body. BONES: The calvarium is intact. No acute osseous abnormality seen. OTHER: Calcified carotid siphons and vertebral arteries. CT/Brain/Head without Contrast IMPRESSION: 1. No acute intracranial abnormality. 2. Significant left paranasal sinus disease. Associated intrasinus calcificati on which usually occurs in the setting of chronic sinusitis and can favor a fungal sinus infection. Reading Location: [id number]
[2025-02-01] MEDS: Vancomycin HCl 1,250 MG in 0.9% Normal Saline (250mL Bag) 250 ML 167 MG IV (16:34)
--- NOTE | 2025-02-01 16:57 | PCM.RX.CS ---
Consult Antibiotic Management Pharmacy has been consulted to manage selected antibiotic: Vancomycin Type of Intervention Type of Consult: New start Suspected Infection Suspected Infection: Bacteremia Labs Labs: Sodium 144 mmol/L (133-145) 02/01/25 05:40 Potassium 4.2 mmol/L (3.3-5.1) 02/01/25 05:40 Chloride 106 mmol/L (98-108) 02/01/25 05:40 Carbon Dioxide 21.0 mmol/L (21.0-32.0) 02/01/25 05:40 Anion Gap 17 (5-15) H 02/01/25 05:40 BUN 73 mg/dL (4-19) H 02/01/25 05:40 Creatinine 8.04 mg/dL (0.70-1.20) H* 02/01/25 05:40 Est GFR (MDRD) Non-Af 7 (>60) L 02/01/25 05:40 BUN/Creatinine Ratio 9.0 RATIO (10-20) L 02/01/25 05:40 Glucose 76 mg/dL (70-99) 02/01/25 05:40 Microbiology Microbiology: Microbiology 01/31/25 09:57 Blood Culture (Wb) - Right Hand Bacteria Detection (PCR) - Final Strep not Strep pneumo 01/31/25 09:57 Blood Culture (Wb) - Right Hand Blood Culture - Preliminary Pharmacy Plan for Drug Dosing Pharmacy Plan for Drug Dosing: NEW START IV VANCOMYCIN Consulting Physician: Abhinav Indication: Bacteremia Goal Trough: 15-20 SrCr: HD (usually MWF schedule) CrCl: HD Comments: 1250mg initial dose given after HD 02/01 @ 1634 Vancomycin Dose: Patient is on HD MWF, did receive HD today. Spoke to nurse, unsure at this time what his schedule will be in the hospital. No doses or levels scheduled. Will check tomorrow to see when next HD session will be. Patient will be given a weight based x1 dose after next HD session. Pending Level: none Pharmacy Service will continue to monitor and adjust dosing as required.
--- NOTE | 2025-02-01 17:30 | RAD_ITS ---
PROCEDURE: RIGHT KNEE 1 OR 2 VIEWS 02/01/2025 REASON FOR EXAM: RIGHT KNEE PAIN,FALL TECHNIQUE: Procedure Code: RADK Modality: DX Procedure: KNEE 1 OR 2 VIEWS Laterality: Right COMPARISON: None. FINDINGS: No acute fracture or dislocation. Mild tricompartmental degenerative arthrosis with mild joint space narrowing and small marginal osteophytes. Mild enthesopathic spurring of the superior patellar pole. Chondrocalcinosis in the medial and lateral joint spaces. No joint effusion or significant soft tissue swelling appreciated. Atherosclerotic vascular calcifications. RAD/Knee 1 or 2 Views IMPRESSION: No acute fracture or dislocation. Mild tricompartmental arthrosis. Reading Location: [id number]
[2025-02-01] MEDS: Senna/Docusate Sodium 1 Tablet 2 TABLET PO (22:26)
[2025-02-02] VITALS (14 sets, daily range): BP systolic 108–170; BP diastolic 55–85; PULSE 56–75; RESP 12–18; TEMP 36.2–36.9; O2SAT 94–98; BMI 24.5
[2025-02-02 06:11] LABS: Hematocrit 26.9 % (40-54); Hemoglobin 9.2 g/dL (13.0-16.5); Immature Granulocytes Count 0.040 X10^3/uL (0.0-0.0); Mean Corp Hgb Conc 34.2 g/dL (32-36); Mean Corpuscular Volume 98.5 fL (80-94); Mean Platelet Vol. 9.6 fl (6.2-12.0); NRBC Flagged by Analyzer 0 % (0-5); Platelet Count 255 K/mm3 (150-450); RBC Distribution Width CV 14.5 % (11.6-14.6); RBC Distribution Width SD 50.9 fl (35.1-43.9); Red Blood Count 2.73 M/mm3 (4.6-6.2); White Blood Count 8.4 K/mm3 (4.4-11.0)
[2025-02-02 06:50] LABS: Anion Gap 17 (5-15); BUN 52 mg/dL (4-19); BUN/Creat Ratio 8.4 RATIO (10-20); Calcium,Total 9.0 mg/dL (7.6-11.0); Carbon Dioxide 23.2 mmol/L (21.0-32.0); Chloride 101 mmol/L (98-108); Estimated Creatinine Clearance 12.34 ml/min (50-250); Glucose 132 mg/dL (70-99); Potassium 4.0 mmol/L (3.3-5.1)
--- NOTE | 2025-02-02 08:28 | CASEMGMT ---
Discharge Planning Updates sent via [facility] to [facility]. Duyen Bright DC Planning Asst.
[2025-02-02] MEDS: 0.9% Normal Saline 1,000 ML IV.SOLN. 1000 ML OPERA.SITE (08:58)
[2025-02-02] MEDS: PureFlow B 2K Dialysis Soln 1 BAG 6 BAG PF (08:58)
--- NOTE | 2025-02-02 10:14 | TREXTCAR_ITS ---
Diet Diet Order/Speech Therapy: INPATIENT Hospital Diet / Speech Therapy Order(s) 02/01/25 08:56 Diet: Renal - General Food consistency:: Soft & Bite Sized Liquid Consistency:: [place]/Mildly Thick Dietary Modifications:: Cardiac / Heart Healthy Speech Therapy Comments: TOTAL FEED, NO STRAWS, meds crushed in DC O2, CPAP, BIPAP needs Home O2 Discharge instructions: No Wound(s) Left buttock: Wound Type: Pressure Injury Problem/Diagnosis (1) Altered mental status: Status: Acute Code(s): R41.82 - Altered mental status, unspecified Plan 69-year-old gentleman was sent to ED from longterm for altered mental status and concern for stroke. 1. Acute encephalopathy possible metabolic encephalopathy with slurred speech, concern for stroke: Patient is being admitted in PCU. CT head does not show evidence of acute ischemia or hemorrhage. PT, OT, speech therapy/swallow evaluation and management, nursing NIH stroke scale, BP and glucose monitoring and control as per stroke protocol. TSH, A1c fasting lipid profile tomorrow AM. MRI brain and 2D echo with bubble contrast study ordered. Has started on baby aspirin and high intensity statin. 02/01: MRI brain does not show evidence of acute infarct but has advanced chronic known small ischemic changes with numerous old cortical infarcts throughout bilateral cerebral hemispheres and multiple lacunar infarcts in ricks radiata and bilateral basal ganglia consistent with history of vascular dementia. CTA head and neck also shows 60 to 65% narrowing of the origin of right ICA. Acute stroke ruled out. TSH normal. Lipid profile shows triglyceride 261, TC 225. A1c 6.4. Patient on baby aspirin and Plavix. Patient on maximum dose of atorvastatin but is refusing since admission stating that she does not want to eat. No valid reason given. Patient is not allergic. 02/02: Patient had soft landing on the floor when he was trying to go bathroom yesterday. CT head and left knee x-ray did not show acute injury. Patient complained of pain but cannot localize or tell for sure because of dementia. Sometimes complain of bilateral knees seems left more than right, back but also points to flank. Unclear about ankle pain. History is not reproducible or tomeka luated 2. Hypertension: Blood pressure is elevated, 177/79, 174/75 but within BP parameters of stroke. Monitor BP. 02/01: Blood pressure is 150/74. 3. DM type II:A1c 8.0 on 11/02/2024. Glucose 309. Accu-Chek before meals and at bedtime with Humalog sliding scale coverage and hypoglycemia protocol. 02/01: Glucose is between 77-97. A1c 6.4. Avoid hypoglycemia. Not on any scheduled insulin. 4. Elevated troponin: Elevated troponin possible due to ESRD on hemodialysis. Patient does not have chest pain or shortness of breath or other acute cardiac symptoms. Troponin 100. Follow the troponin trends 5. ESRD on hemodialysis: Patient is known to realtime captioner Dr. Odonnell. He is consulted. Patient has left arm AV fistula on probably Friday and Friday. Abdomen/abdomen: Patient had hemodialysis today. 6. History of seizure/convulsion: Patient on levetiracetam 500 mg p.o. twice daily, changed to IV as patient is n.p.o. 7. Vascular dementia, psychosis: Home medication reconciliation done 02/02: Patient does not have ability to understand. 8. GERD: PPI 9. CT head reported opacification, sclerosis thickening of left Tesuloid sinus with possibility of fungal colonization/chronic sinusitis. CT sinus shows chronic opacification of left sphenoid sinus with calcification. Does not seem acute sinusitis. 10. Fall from standing position with pain left knee: Repeat CT head today, 02/01 does not show acute change. Left knee x-ray ordered. Pending DVT prophylaxis: High risk, heparin 5000 units subcutaneous twice daily. CODE STATUS: Could not go in the detail as patient altered mental status and does not have capacity to understand but he loosely said he wants ventilation and CPR. For now full code History of bacteremia: Blood cultures ordered from ER physician. Unclear about its indication as patient did not had any fever but had change in mental status and a history of vascular dementia. Blood culture 1 out of 2 is positive for strep not strep pneumo. Discussed with infectious disease and patient not having signs or symptoms of infection or focal source of infection therefore antibiotic discontinued. Initially started on IV vancomycin and then changed to ceftriaxone and then discontinued. Microbiology Past 72 Hours 01/31/25 09:57 Blood Culture (Wb) - Right Hand Bacteria Detection (PCR) - Final Strep not Strep pneumo 01/31/25 09:57 Blood Culture (Wb) - Right Hand Blood Culture - Preliminary Laboratory Results 02/01/25 00:34: POC Glucose 99 02/01/25 05:40: WBC 10.3, RBC 2.83 L, Hgb 9.4 L, Hct 28.6 L, MCV 101.1 H, MCH 33.2 H, MCHC 32.9, RDW Std Deviation 50.2 H, RDW Coeff of Corina 14.0, Plt Count 281, MPV 9.6, Immature Gran % (Auto) 0.300, Neut % (Auto) 57.5, Lymph % (Auto) 29.7, Reeves % (Auto) 7.5, Eos % (Auto) 4.4, Baso % (Auto) 0.6, Absolute Neuts (auto) 5.9, Absolute Lymphs (auto) 3.06, Nucleated RBC % 0, Sodium 144, Potassium 4.2, Chloride 106, Carbon Dioxide 21.0, Anion Gap 17 H, BUN 73 H, Creatinine 8.04 H*, Estim Creat Clear Calc 9.52 L*, Est GFR (MDRD) Non-Af 7 L, BUN/Creatinine Ratio 9.0 L, Glucose 76, Hemoglobin A1c 6.4 H, Calcium 8.6, Triglycerides 261 H, Cholesterol 225 H, LDL Cholesterol, Calc 148, VLDL Cholesterol 52 H, HDL Cholesterol 29 L, Cholesterol/HDL Ratio 7.79, TSH 0.868 02/01/25 06:19: POC Glucose 77 02/01/25 14:25: POC Glucose 97 Clinical Impression(s) from Imaging Studies Brain CT 01/31/25 09:45 IMPRESSION: 1. No evidence of acute ischemia or hemorrhage. Several sites of encephalomalacia in the watershed, bilateral parietal lobes and left occipital lobe. 2. Sclerosis, thickening and opacification left sphenoid sinus. Findings suggestive of chronic sinusitis. Fungal colonization is a consideration as well. Reading Location: [id number] Chest X-Ray 01/31/25 10:25 IMPRESSION: No acute abnormality Reading Location: [id number] Head/Neck CTA 01/31/25 11:47 IMPRESSION: 60-65% narrowing at the origin of the right internal carotid artery. Opacification of the left sphenoid sinus. Stroke Alert: 65% narrowing of Left ICA The critical findings in the findings and impression above were relayed directly by me by telephone to Clifton La on 01/31/2025 at 12:51 pm with readback verification. Reading Location: [facility] Facial/Sinus 01/31/25 12:05 IMPRESSION: Opacification of the left sphenoid sinus with calcifications. Mucosal thickening at the base of the right maxillary sinus. Reading Location: [facility] Echocardiogram 01/31/25 12:07 Interpretation Summary Mild concentric left ventricular hypertrophy. Mild posterior and lateral hypokinesis. Estimated LVEF 60%. Stage I diastolic dysfunction. Mildly thickened anterior mitral valve leaflet. Equivocal anterior mitral valve leaflet prolapse. Mild posteriorly directed mitral valve regurgitation. Ordering Physician: Clifton La Performed By: Davi Dozier RCS Brain MRI 01/31/25 12:22 IMPRESSION: No evidence of acute infarct on this exam. Advanced chronic small-vessel ischemic changes with numerous scattered old cortical infarcts throughout the bilateral cerebral hemispheres, and multiple old lacunar infarcts in the ricks radiata and bilateral basal ganglia. Reading Location: [id number] Brain CT 02/01/25 15:40 IMPRESSION: 1. No acute intracranial abnormality. 2. Significant left paranasal sinus disease. Associated intrasinus calcification which usually occurs in the setting of chronic sinusitis and can favor a fungal sinus infection. Reading Location: [facility] Laboratory Results 01/31/25 09:58: WBC 9.4, RBC 2.79 L, Hgb 9.3 L, Hct 27.7 L, MCV 99.3 H, MCH 33.3 H, MCHC 33.6, RDW Std Deviation 49.5 H, RDW Coeff of Corina 13.9, Plt Count 263, MPV 9.5, Immature Gran % (Auto) 0.400, Neut % (Auto) 67.0, Lymph % (Auto) 23.1, [place] % (Auto) 5.5, Eos % (Auto) 3.5, Baso % (Auto) 0.5, Absolute Neuts (auto) 6.3, Absolute Lymphs (auto) 2.17, Nucleated RBC % 0, Sodium 141, Potassium 4.1, Chloride 101, Carbon Dioxide 23.4, Anion Gap 17 H, BUN 72 H, Creatinine 7.93 H*, Estim Creat Clear Calc 9.65 L*, Est GFR (MDRD) Non-Af 7 L, BUN/Creatinine Ratio 9.1 L, Glucose 309 H, Lactic Acid 1.2, Calcium 8.8, Magnesium Pending, Troponin T High Sens 100 H* Clinical Impression(s) from Imaging Studies Brain CT 01/31/25 09:45 IMPRESSION: 1. No evidence of acute ischemia or hemorrhage. Several sites of encephalomalacia in the watershed, bilateral parietal lobes and left occipital lobe. 2. Sclerosis, thickening and opacification left sphenoid sinus. Findings suggestive of chronic sinusitis. Fungal colonization is a consideration as well. Reading Location: [facility] Chest X-Ray 01/31/25 10:25 IMPRESSION: No acute abnormality Reading Location: [facility] Allergies/Procedures Done in Hospital Allergies No Known Allergies Allergy (Verified 01/31/25 09:45) Type of Care/Length of Stay Estimated LOS: Convalescent Care Less Than 30 days Type of Care Needed: Skilled Rehab Potential: Good Prognosis: Good Additional Orders/Day of Discharge Day of Discharge: 02/02/25 Dietary and Speech Recommendations Dietitian Recommendations/Changes: Will adjust diet to renal general/cardiac given altered lipid panel; consistency/texture as per [employer] SE[employer]IST. Will offer ONS as needed once PO established with meals; add PO Nepro as needed. Monitor and trend weights as available. Discharge Plan Admission Admit Date/Time: 01/31/25 11:06 Primary Reason for Your Visit: Acute encephalopathy. Is stroke alert Attending Provider: Clifton La Primary Care Provider: Care Physician,No Primary Consulting Providers: Marina Odonnell; Tank Sepulveda; Zee Wharton; Lauren Heard; Iraida Del Valle; Stacey Voss; Wallace Wade; Britta Rizo; Ritesh Robb; Amando Li; Aron Jaramillo; Fela Ferguson; Nallely Espinal; Remi Brooks; Caprice Vega; Arsen Garduno; Wai Turner; Chandan Hernandez; Chaim Foley; Quincy Lance; Trang Jacques; Bud Rashid Discharge Orders/Prescriptions Prescriptions: New tizanidine 2 mg Tablet 2 mg PO Q8 PRN (Reason: muscle pain/spasm) Qty: 0 0RF sennosides-docusate sodium [Stimulant Laxative Plus] 8.6-50 mg Tablet 2 tab PO BID Qty: 0 0RF insulin lispro [Humalog KwikPen Insulin] 100 unit/mL Insulin Pen See Protocol subcut Q6 Qty: 0 0RF Protocol: 4. Sliding Scale Insulin High-Med Dosing Condition: 150-199 mg/dl = 2 units Condition: 200-259 mg/dl = 4 units Condition: 260-324 mg/dl = 6 units Condition: 325-374 mg/dl = 8 units Condition: 375-409 mg/dl = 10 units Condition: 410-449 mg/dl = 11 units Condition: Greater than 449 call physician Protocol Text: Suggested for: - Patients on Total Daily Insulin Dose of 56-80 units - Patient who are known to be insulin resistant or septic HIGH MEDIUM DOSING ALGORITHM Continued acetaminophen 650 mg suppository 650 mg IA Q4H PRN (Reason: fever or pain) acetaminophen 325 mg capsule 650 mg PO Q6H PRN (Reason: fever or pain) amlodipine 10 mg tablet 5 mg PO DAILY aluminum-magnesium hydroxide 225-200 mg/5 mL suspension 30 ml PO Q4H PRN PRN (Reason: acid reflux) aspirin 81 mg capsule 81 mg PO DAILY atorvastatin 40 mg tablet 40 mg PO DAILY clopidogrel 75 mg tablet 75 mg PO DAILY insulin glargine [Lantus Solostar U-100 Insulin] 100 unit/mL (3 mL) insulin pen 18 unit subcut .qam levetiracetam 500 mg tablet 500 mg PO BID losartan 25 mg tablet 50 mg PO DAILY metoprolol tartrate 25 mg tablet 25 mg PO BID Rx Instructions: hold for BP 100/60 or hr <60 magnesium hydroxide [Milk of Magnesia] 400 mg/5 mL suspension 30 ml PO DAILY PRN (Reason: constipation) omega-3 acid ethyl esters 1 gram capsule 1 cap PO BID sertraline 25 mg tablet 50 mg PO BID sertraline 50 mg tablet 50 mg PO BID Trulicity 3 mg/0.5 mL pen injector 3 mg subcut MO ondansetron 4 mg tablet,disintegrating 4 mg PO Q8H PRN diphenhydramine HCl [Allergy (diphenhydramine)] 25 mg capsule 25 mg PO PRN diphenhydramine HCl 50 mg capsule 50 mg PO PRN Mircera 50 mcg/0.3 mL syringe 30 mcg IV QMONTH methylprednisolone sodium succ 125 mg recon soln 125 mg IM PRN iron sucrose 50 mg iron/2.5 mL solution 50 mg IV QWEEK Rx Instructions: administer over 15 minutes epinephrine HCl (PF) 1 mg/mL (1 mL) solution 0.3 mg IM PRN Rx Instructions: do not exceed 12 doses per 24 hrs diphenhydramine HCl 50 mg/mL solution 25 mg IM PRN Rx Instructions: may repeat once in 30-60 minutes if not effective diphenhydramine HCl 50 mg/mL solution 50 mg IM PRN promethazine 25 mg tablet 25 mg PO Q8H PRN metoclopramide HCl [Reglan] 5 mg tablet 10 mg PO .as directed Rx Instructions: take before meals for nausea/vomiting Katelynn-Tiago 0.8 mg tablet 1 tab PO DAILY sevelamer carbonate 800 mg tablet 800 mg PO TID Lokelma 10 gram powder in packet 10 g PO .qweeksunday Patient Comments: takes every week on sundays Discontinued insulin lispro 100 unit/mL insulin pen 1 unit SUBCUT TID Patient Comments: UNDER 200-NO INSULIN 200 TO 250 2 UNITS, 251 TO 300 4 UNITS, 301 TO 350 6 UNITS, ABOVE 350 8 UNITS MAX DAILY UNITS 24 valacyclovir [Valtrex] 500 mg tablet 500 mg PO TID Patient Comments: per skilled nursing, for shingles take for 7 days, started 01/26/2025 Referrals / Follow Up: Marina Odonnell MD [Med Staff - Consulting, Nephrology] - Within 1 Month Luis Miguel Terry MD [Non-Staff -Ordering Privileges, Neurology] - Within 1 Month Referral Note: For vascular dementia Care Physician,No Primary [Primary Care Provider, Medical] Yessy Morgan MD [[facility], Medical] Disposition Disposition (needs filled in before D/C Order can be placed): [facility] Facility Charges/Coding Visit Charges Inpatient E&M: 70962 Subs Hosp L2
--- NOTE | 2025-02-02 11:21 | PN.RENAL_ITS ---
Subjective Subjective Patient seen on dialysis today. Tolerating treatment well. No fluid removal with dialysis today. Objective Data Objective Data Vital Signs: Vital Signs Temp Pulse Resp BP Pulse Ox O2 Del Method 97.8 F 62 16 170/73 H 96 Room Air 02/02/25 08:40 02/02/25 11:00 02/02/25 08:40 02/02/25 11:00 02/02/25 08:40 02/02/25 08:40 Oxygen Delivery Method Room Air Weight: 82.2 kg Body Mass Index (BMI) 24.5 Intake & Output: Intake and Output for Last 24 Hours 01/31/25 02/01/25 02/02/25 23:59 23:59 23:59 Intake Total 754.17 / 754.17 763.33 / 763.33 Output Total 1230 / 1230 Balance 754.17 / 754.17 -466.67 / -466.67 Lab / Micro Data 02/02/25 05:45 02/02/25 05:45 Labs: Laboratory Results - last 24 hr 02/01/25 14:25: POC Glucose 97 02/01/25 18:10: POC Glucose 237 H 02/02/25 00:24: POC Glucose 136 H 02/02/25 05:45: WBC 8.4, RBC 2.73 L, Hgb 9.2 L, Hct 26.9 L, MCV 98.5 H, MCH 33.7 H, MCHC 34.2, RDW Std Deviation 50.9 H, RDW Coeff of Corina 14.5, Plt Count 255, MPV 9.6, Immature Gran % (Auto) 0.500, Neut % (Auto) 60.2, Lymph % (Auto) 28.1, [place] % (Auto) 8.2, Eos % (Auto) 2.6, Baso % (Auto) 0.4, Absolute Neuts (auto) 5.1, Absolute Lymphs (auto) 2.37, Nucleated RBC % 0, Sodium 142, Potassium 4.0, Chloride 101, Carbon Dioxide 23.2, Anion Gap 17 H, BUN 52 H, Creatinine 6.20 H, Estim Creat Clear Calc 12.34 L, Est GFR (MDRD) Non-Af 9 L, BUN/Creatinine Ratio 8.4 L, Glucose 132 H, Calcium 9.0 02/02/25 06:21: POC Glucose 137 H Micro: Microbiology 01/31/25 09:57 Blood Culture (Wb) - Right Hand Bacteria Detection (PCR) - Final Strep not Strep pneumo 01/31/25 09:57 Blood Culture (Wb) - Right Hand Blood Culture - Preliminary Radiography Diagnostic Testing: Radiology Impression Brain CT 02/01/25 15:40 IMPRESSION: 1. No acute intracranial abnormality. 2. Significant left paranasal sinus disease. Associated intrasinus calcification which usually occurs in the setting of chronic sinusitis and can favor a fungal sinus infection. Reading Location: [facility] [place] Knee X-Ray 02/01/25 17:30 IMPRESSION: No acute fracture or dislocation. Mild tricompartmental arthrosis. Reading Location: [facility] Physical Exam Narrative Alert and oriented no obvious distress s1s2 no murmurs lungs clear abdomen soft No edema AV fistula accessed for hemodialysis Assessment & Plan Assessment/Plan (1) End stage kidney disease: PLAN: ESRD on hemodialysis Friday. Patient undergoing hemodialysis today over 4 hours with no fluid removal. At EDW. History of anemia of chronic disease. Hemoglobin 9.2. Will monitor hemoglobin trends Acute encephalopathy; evaluated by neuro, acute stroke ruled out. On IV antibiotics rocephin and vanco, BC final strep not strep pneumo Assessment and plan reviewed with Dr. Odonnell
[2025-02-02] MEDS: levETIRAcetam IV 500 MG in 0.9% Normal Saline (100mL Bag) 100 ML 420 MG IV (13:20)
[2025-02-02] MEDS: Heparin Injection (Vial) 5,000 UNIT/ML VIAL 5000 UNIT SC (13:41)
--- NOTE | 2025-02-02 15:23 | DS.PCM_ITS ---
Providers Date of Admission: 01/31/25 Date of Discharge: 02/02/25 Primary Care Physician: Tasha Primary Care Phys Consultations 01/31/25 11:48 Consult: Nephrology Routine Consulting Provider: Marina Odonnell Reason for Consult: ESRD on HD EMERGENT Consult: No Notified: Yes Date Notified: 01/31/25 Time Notified: 11:48 Method of Notification: Text 01/31/25 12:22 Consult: Tele-Neurology Routine Consulting Provider: [facility] Reason for Consult: Acute Ischemic Stroke/TIA EMERGENT Consult: No MD Notified: Yes Date Notified: 01/31/25 Time Notified: 12:41 Method of Notification: Answering Service Nursing Unit Staff Notify [facility] of Tele-Neurology Consult: Yes Reason For Visit: LOC, R/O STROKE Diagnosis Discharge Diagnosis (1) Altered mental status: Status: Acute Code(s): R41.82 - Altered mental status, unspecified Plan 69-year-old gentleman was [facility] for altered mental status and concern for stroke. 1. Acute encephalopathy possible metabolic encephalopathy with slurred speech, concern for stroke: Patient is being admitted in PCU. CT head does not show evidence of acute ischemia or hemorrhage. PT, OT, speech therapy/swallow evaluation and management, nursing NIH stroke scale, BP and glucose monitoring and control as per stroke protocol. TSH, A1c fasting lipid profile tomorrow AM. MRI brain and 2D echo with bubble contrast study ordered. Has started on baby aspirin and high intensity statin. 02/01: MRI brain does not show evidence of acute infarct but has advanced chronic known small ischemic changes with numerous old cortical infarcts throughout bilateral cerebral hemispheres and multiple lacunar infarcts in ricks radiata and bilateral basal ganglia consistent with history of vascular dementia. CTA head and neck also shows 60 to 65% narrowing of the origin of right ICA. Acute stroke ruled out. TSH normal. Lipid profile shows triglyceride 261, TC 225. A1c 6.4. Patient on baby aspirin and Plavix. Patient on maximum dose of atorvastatin but is refusing since admission stating that she does not want to eat. No valid reason given. Patient is not allergic. 02/02: Patient had soft landing on the floor when he was trying to go bathroom yesterday. CT head and left knee x-ray did not show acute injury. Patient complained of pain but cannot localize or tell for sure because of dementia. Sometimes complain of bilateral knees seems left more than right, back but also points to flank. Unclear about ankle pain. History is not reproducible or evaluated 2. Hypertension: Blood pressure is elevated, 177/79, 174/75 but within BP parameters of stroke. Monitor BP. 02/01: Blood pressure is 150/74. 3. DM type II:A1c 8.0 on 11/02/2024. Glucose 309. Accu-Chek before meals and at bedtime with Humalog sliding scale coverage and hypoglycemia protocol. 02/01: Glucose is between 77-97. A1c 6.4. Avoid hypoglycemia. Not on any scheduled insulin. 4. Elevated troponin: Elevated troponin possible due to ESRD on hemodialysis. Patient does not have chest pain or shortness of breath or other acute cardiac symptoms. Troponin 100. Follow the troponin trends 5. ESRD on hemodialysis: Patient is known to telecom sales consultant Dr. Odonnell. He is consulted. Patient has left arm AV fistula on probably Friday and Friday. Abdomen/abdomen: Patient had hemodialysis today. 6. History of seizure/convulsion: Patient on levetiracetam 500 mg p.o. twice daily, changed to IV as patient is n.p.o. 7. Vascular dementia, psychosis: Home medication reconciliation done 02/02: Patient does not have ability to understand. 8. GERD: PPI 9. CT head reported opacification, sclerosis thickening of left Tesuloid sinus with possibility of fungal colonization/chronic sinusitis. CT sinus shows chronic opacification of left sphenoid sinus with calcification. Does not seem acute sinusitis. 10. Fall from standing position with pain left knee: Repeat CT head today, 02/01 does not show acute change. Left knee x-ray ordered. Patient also had pain almost all over including back flank knees and legs even before fall. Discharged on low-dose Zanaflex as the patient is very stiff and muscle tenderness musculoskeletal exam. Knee x-ray does not show acute fracture or dislocation. Mild tricompartmental arthrosis. DVT prophylaxis: High risk, heparin 5000 units subcutaneous twice daily. CODE STATUS: Could not go in the detail as patient altered mental status and does not have capacity to understand but he loosely said he wants ventilation and CPR. For now full code Alphahemolytic bacteremia, probably skin contamination: Blood cultures ordered from ER physician. Unclear about its indication as patient did not had any fever but had change in mental status and a history of vascular dementia. Blood culture 1 out of 2 is positive for strep not strep pneumo. Discussed with infectious disease and patient not having signs or symptoms of infection or focal source of infection therefore antibiotic discontinued. Initially started on IV vancomycin and then changed to ceftriaxone and then discontinued. Patient did not had any fever of the antibiotic. Discharge medication reconciliation done. Discharge follow-up instructions completed. Discharge process discussed with the patient and all questions were answered to patient's satisfaction. Follow with PCP in 1 to 2 weeks Total time spent, exact 35 minutes on discharge meds reconciliation, examination, coordination of care with nurses and ancillary staff, review of imaging and blood test and discussion with the patient on follow-up instructions. Microbiology Past 72 Hours 01/31/25 09:57 Blood Culture (Wb) - Right Hand Bacteria Detection (PCR) - Final Strep not Strep pneumo 01/31/25 09:57 Blood Culture (Wb) - Right Hand Blood Culture - Preliminary Laboratory Results 02/01/25 00:34: POC Glucose 99 02/01/25 05:40: WBC 10.3, RBC 2.83 L, Hgb 9.4 L, Hct 28.6 L, MCV 101.1 H, MCH 33.2 H, MCHC 32.9, RDW Std Deviation 50.2 H, RDW Coeff of Corina 14.0, Plt Count 281, MPV 9.6, Immature Gran % (Auto) 0.300, Neut % (Auto) 57.5, Lymph % (Auto) 29.7, Carlisle % (Auto) 7.5, Eos % (Auto) 4.4, Baso % (Auto) 0.6, Absolute Neuts (auto) 5.9, Absolute Lymphs (auto) 3.06, Nucleated RBC % 0, Sodium 144, Potassium 4.2, Chloride 106, Carbon Dioxide 21.0, Anion Gap 17 H, BUN 73 H, C reatinine 8.04 H*, Estim Creat Clear Calc 9.52 L*, Est GFR (MDRD) Non-Af 7 L, B UN/Creatinine Ratio 9.0 L, Glucose 76, Hemoglobin A1c 6.4 H, Calcium 8.6, T riglycerides 261 H, Cholesterol 225 H, LDL Cholesterol, Calc 148, VLDL Cholesterol 52 H, HDL Cholesterol 29 L, Cholesterol/HDL Ratio 7.79, TSH 0.868 02/01/25 06:19: POC Glucose 77 02/01/25 14:25: POC Glucose 97 Clinical Impression(s) from Imaging Studies Brain CT 01/31/25 09:45 IMPRESSION: 1. No evidence of acute ischemia or hemorrhage. Several sites of encephalomalacia in the watershed, bilateral parietal lobes and left occipital lobe. 2. Sclerosis, thickening and opacification left sphenoid sinus. Findings suggestive of chronic sinusitis. Fungal colonization is a consideration as well. Reading Location: [facility] Chest X-Ray 01/31/25 10:25 IMPRESSION: No acute abnormality Reading Location: [facility] Head/Neck CTA 01/31/25 11:47 IMPRESSION: 60-65% narrowing at the origin of the right internal carotid artery. Opacification of the left sphenoid sinus. Stroke Alert: 65% narrowing of Left ICA The critical findings in the findings and impression above were relayed directly by me by telephone to Clifton La on 01/31/2025 at 12:51 pm with readback verification. Reading Location: [facility] Facial/Sinus 01/31/25 12:05 IMPRESSION: Opacification of the left sphenoid sinus with calcifications. Mucosal thickening at the base of the right maxillary sinus. Reading Location: [facility] Echocardiogram 01/31/25 12:07 Interpretation Summary Mild concentric left ventricular hypertrophy. Mild posterior and lateral hypokinesis. Estimated LVEF 60%. Stage I diastolic dysfunction. Mildly thickened anterior mitral valve leaflet. Equivocal anterior mitral valve leaflet prolapse. Mild posteriorly directed mitral valve regurgitation. Ordering Physician: Clifton La Performed By: Davi Dozier RCS Brain MRI 01/31/25 12:22 IMPRESSION: No evidence of acute infarct on this exam. Advanced chronic small-vessel ischemic changes with numerous scattered old cortical infarcts throughout the bilateral cerebral hemispheres, and multiple old lacunar infarcts in the ricks radiata and bilateral basal ganglia. Reading Location: [facility] Brain CT 02/01/25 15:40 IMPRESSION: 1. No acute intracranial abnormality. 2. Significant left paranasal sinus disease. Associated intrasinus calcification which usually occurs in the setting of chronic sinusitis and can favor a fungal sinus infection. Reading Location: [facility] Laboratory Results 01/31/25 09:58: WBC 9.4, RBC 2.79 L, Hgb 9.3 L, Hct 27.7 L, MCV 99.3 H, MCH 33.3 H, MCHC 33.6, RDW Std Deviation 49.5 H, RDW Coeff of Corina 13.9, Plt Count 263, MPV 9.5, Immature Gran % (Auto) 0.400, Neut % (Auto) 67.0, Lymph % (Auto) 23.1, Carlisle % (Auto) 5.5, Eos % (Auto) 3.5, Baso % (Auto) 0.5, Absolute Neuts (auto) 6.3, Absolute Lymphs (auto) 2.17, Nucleated RBC % 0, Sodium 141, Potassium 4.1, Chloride 101, Carbon Dioxide 23.4, Anion Gap 17 H, B UN 72 H, Creatinine 7.93 H*, Estim Creat Clear Calc 9.65 L*, Est GFR (MDRD) Non- Af 7 L, BUN/Creatinine Ratio 9.1 L, Glucose 309 H, Lactic Acid 1.2, Calcium 8.8, Magnesium Pending, Troponin T High Sens 100 H* Clinical Impression(s) from Imaging Studies Brain CT 01/31/25 09:45 IMPRESSION: 1. No evidence of acute ischemia or hemorrhage. Several sites of encephalomalacia in the watershed, bilateral parietal lobes and left occipital lobe. 2. Sclerosis, thickening and opacification left sphenoid sinus. Findings suggestive of chronic sinusitis. Fungal colonization is a consideration as well. Reading Location: [facility] Chest X-Ray 01/31/25 10:25 IMPRESSION: No acute abnormality Reading Location: [facility] Medications at Discharge Home Medications acetaminophen 325 mg capsule 650 mg PO Q6H PRN fever or pain 11/04/24 acetaminophen 650 mg rectal suppository 650 mg NV Q4H PRN fever or pain 11/04/24 aluminum-magnesium hydroxide 225 mg-200 mg/5 mL oral suspension 30 ml PO Q4H PRN PRN acid reflux 11/04/24 amlodipine 10 mg tablet 5 mg PO DAILY bp 11/04/24 aspirin 81 mg capsule 81 mg PO DAILY blood thinner 11/04/24 atorvastatin 40 mg tablet 40 mg PO DAILY cholesterol 11/04/24 clopidogrel 75 mg tablet 75 mg PO DAILY heart 11/04/24 dulaglutide 3 mg/0.5 mL subcutaneous pen injector (Trulicity) 3 mg subcut MO DM 11/04/24 insulin glargine 100 unit/mL (3 mL) subcutaneous pen (Lantus Solostar U-100 Insulin) 18 unit subcut .qam dm 11/04/24 levetiracetam 500 mg tablet 500 mg PO BID seizures 11/04/24 losartan 25 mg tablet 50 mg PO DAILY 11/04/24 magnesium hydroxide 400 mg/5 mL oral suspension (Milk of Magnesia) 30 ml PO DAILY PRN constipation 11/04/24 metoprolol tartrate 25 mg tablet 25 mg PO BID HTN 11/04/24 omega-3 acid ethyl esters 1 gram capsule 1 cap PO BID supplement 11/04/24 ondansetron 4 mg disintegrating tablet 4 mg PO Q8H PRN nausea/vomiting 11/04/24 sertraline 25 mg tablet 50 mg PO BID mood 11/04/24 sertraline 50 mg tablet 50 mg PO BID 11/04/24 diphenhydramine HCl 25 mg capsule (Allergy (diphenhydramine)) 25 mg PO PRN allergy 01/31/25 diphenhydramine HCl 50 mg capsule 50 mg PO PRN anaphylaxsis/allergy 01/31/25 diphenhydramine HCl 50 mg/mL injection solution 25 mg IM PRN anaphylaxsis 01/31/25 diphenhydramine HCl 50 mg/mL injection solution 50 mg IM PRN anaphylaxisis 01/31/25 epinephrine HCl (PF) 1 mg/mL (1 mL) injection solution 0.3 mg IM PRN anaphylaxsis 01/31/25 epoetin beta, methoxy peg 50 mcg/0.3 mL injection syringe (Mircera) 30 mcg IV QMONTH used for dialysis 01/31/25 iron sucrose 50 mg iron/2.5 mL intravenous solution 50 mg IV QWEEK dialysis 01/31/25 methylprednisolone sodium succ 125 mg solution for injection 125 mg IM PRN anaphylaxsis/allergy 01/31/25 metoclopramide HCl 5 mg tablet (Reglan) 10 mg PO .as directed nausea/ vomiting 01/31/25 promethazine 25 mg tablet 25 mg PO Q8H PRN nausea/vommiting 01/31/25 sevelamer carbonate 800 mg tablet 800 mg PO TID high BP 01/31/25 sodium zirconium cyclosilicate 10 gram oral powder packet (Lokelma) 10 g PO .qweeksunday hypokalemia 01/31/25 vitamin B complex-vitamin C-folic acid 0.8 mg tablet (Katelynn-Tiago) 1 tab PO DAILY supplement 01/31/25 insulin lispro 100 unit/mL subcutaneous pen (Humalog KwikPen (U-100) Insulin) See Protocol subcut Q6 #0 mL 02/02/25 sennosides 8.6 mg-docusate sodium 50 mg tablet (Stimulant Laxative Plus) 2 tab PO BID #0 tabs 02/02/25 tizanidine 2 mg tablet 2 mg PO Q8 PRN muscle pain/spasm #0 tabs 02/02/25 Hospital Course Summary of Care Provided Hospital Course: Microbiology Past 72 Hours 01/31/25 09:57 Blood Culture (Wb) - Right Hand Blood Culture - Preliminary No growth in 48 hours. 01/31/25 09:57 Blood Culture (Wb) - Right Hand Bacteria Detection (PCR) - Final Strep not Strep pneumo 01/31/25 09:57 Blood Culture (Wb) - Right Hand Blood Culture - Preliminary Alpha Hemolytic Streptococcus Laboratory Results 02/01/25 18:10: POC Glucose 237 H 02/02/25 00:24: POC Glucose 136 H 02/02/25 05:45: WBC 8.4, RBC 2.73 L, Hgb 9.2 L, Hct 26.9 L, MCV 98.5 H, MCH 33.7 H, MCHC 34.2, RDW Std Deviation 50.9 H, RDW Coeff of Corina 14.5, Plt Count 255, MPV 9.6, Immature Gran % (Auto) 0.500, Neut % (Auto) 60.2, Lymph % (Auto) 28.1, Carlisle % (Auto) 8.2, Eos % (Auto) 2.6, Baso % (Auto) 0.4, Absolute Neuts (auto) 5.1, Absolute Lymphs (auto) 2.37, Nucleated RBC % 0, Sodium 142, Potassium 4.0, Chloride 101, Carbon Dioxide 23.2, Anion Gap 17 H, BUN 52 H, Creatinine 6.20 H, Estim Creat Clear Calc 12.34 L, Est GFR (MDRD) Non-Af 9 L, BUN/Creatinine Ratio 8.4 L, Glucose 132 H, Calcium 9.0 02/02/25 06:21: POC Glucose 137 H 02/02/25 13:49: POC Glucose 109 H Physical Exam Narrative No acute issues. Yesterday after soft landing on the floor, patient was moved to room 129, closer to nursing station. No fever. No leukocytosis. Physical exam: General: Awake. More oriented and verbal. Noncooperative. HEENT: Atraumatic, PERRLA, EOMI, Normocephalic. Oral: Oral mucosa moist. No Gingival or Mucosal Lesions/ Ulcerations/vascular lesions seen Neck: Supple, No JVD, Negative Carotid Bruits Chest wall/Lungs: Air entry diminished in bilateral lung bases. No crepitation/rhonchi Cardiovascular: Regular rate and rhythm, Normal S1,S2, No M/G/R Abdomen: Bowel Sounds Present, Soft, Non Tender, Non-Distended : Palpable thrill over left arm AV fistula No renal angle tenderness. No suprapubic tenderness. Extremities: No edema, Capillary Refill Less than 3 Seconds Skin: No rashes, No breakdown Musculoskeletal: Left knee pain. No Tenderness to Palpation of Joints or Extremities Neurological: Vascular dementia. Patient is speech is difficult to comprehend. Chronic language deficit Psych/Mental Status: Flat affect vascular dementia Weight / BMI Weight Weight: 181 lb 3.52 oz Body Mass Index (BMI) 24.5 ABG / Lab / Microbiology Data 02/02/25 05:45 02/02/25 05:45 Laboratory: Laboratory Results - last 24 hr 02/01/25 18:10: POC Glucose 237 H 02/02/25 00:24: POC Glucose 136 H 02/02/25 05:45: WBC 8.4, RBC 2.73 L, Hgb 9.2 L, Hct 26.9 L, MCV 98.5 H, MCH 33.7 H, MCHC 34.2, RDW Std Deviation 50.9 H, RDW Coeff of Corina 14.5, Plt Count 255, MPV 9.6, Immature Gran % (Auto) 0.500, Neut % (Auto) 60.2, Lymph % (Auto) 28.1, Carlisle % (Auto) 8.2, Eos % (Auto) 2.6, Baso % (Auto) 0.4, Absolute Neuts (auto) 5.1, Absolute Lymphs (auto) 2.37, Nucleated RBC % 0, Sodium 142, Potassium 4.0, Chloride 101, Carbon Dioxide 23.2, Anion Gap 17 H, BUN 52 H, Creatinine 6.20 H, Estim Creat Clear Calc 12.34 L, Est GFR (MDRD) Non-Af 9 L, BUN/Creatinine Ratio 8.4 L, Glucose 132 H, Calcium 9.0 02/02/25 06:21: POC Glucose 137 H 02/02/25 13:49: POC Glucose 109 H Microbiology: Microbiology 01/31/25 09:57 Blood Culture (Wb) - Right Hand Blood Culture - Preliminary No growth in 48 hours. 01/31/25 09:57 Blood Culture (Wb) - Right Hand Bacteria Detection (PCR) - Final Strep not Strep pneumo 01/31/25 09:57 Blood Culture (Wb) - Right Hand Blood Culture - Preliminary Alpha Hemolytic Streptococcus Radiography Diagnostic Testing: Radiology Impression Brain CT 02/01/25 15:40 IMPRESSION: 1. No acute intracranial abnormality. 2. Significant left paranasal sinus disease. Associated intrasinus calcification which usually occurs in the setting of chronic sinusitis and can favor a fungal sinus infection. Reading Location: [id number] Knee X-Ray 02/01/25 17:30 IMPRESSION: No acute fracture or dislocation. Mild tricompartmental arthrosis. Reading Location: [id number] D/C Instructions DC O2, CPAP, BIPAP Needs Home O2 Discharge instructions: No Meaningful Use Info Meaningful Use Meaningful Use Diagnoses (Choose all that apply): None applicable Discharge Plan Admission Admit Date/Time: 01/31/25 11:06 Primary Reason for Your Visit: Acute encephalopathy. Is stroke alert Attending Provider: Clifton La Primary Care Provider: Care Physician,No Primary Consulting Providers: Marina Odonnell; Tank Sepulveda; Zee Wharton; Lauren Heard; Iraida Del Valle; Stacey Voss; Wallace Wade; Britta Rizo; Ritesh Robb; Amando Li; Aron Jaramillo; Fela Ferguson; Nallely Espinal; Remi Brooks; Caprice Vega; Arsen Garduno; Wai Turner; Chandan Hernandez; Chaim Foley; Quincy Lance; Trang Jacques; Bud Rashid Discharge Orders/Prescriptions Prescriptions: New tizanidine 2 mg Tablet 2 mg PO Q8 PRN (Reason: muscle pain/spasm) Qty: 0 0RF sennosides-docusate sodium [Stimulant Laxative Plus] 8.6-50 mg Tablet 2 tab PO BID Qty: 0 0RF insulin lispro [Humalog KwikPen Insulin] 100 unit/mL Insulin Pen See Protocol subcut Q6 Qty: 0 0RF Protocol: 4. Sliding Scale Insulin High-Med Dosing Condition: 150-199 mg/dl = 2 units Condition: 200-259 mg/dl = 4 units Condition: 260-324 mg/dl = 6 units Condition: 325-374 mg/dl = 8 units Condition: 375-409 mg/dl = 10 units Condition: 410-449 mg/dl = 11 units Condition: Greater than 449 call physician Protocol Text: Suggested for: - Patients on Total Daily Insulin Dose of 56-80 units - Patient who are known to be insulin resistant or septic HIGH MEDIUM DOSING ALGORITHM Continued acetaminophen 650 mg suppository 650 mg NV Q4H PRN (Reason: fever or pain) acetaminophen 325 mg capsule 650 mg PO Q6H PRN (Reason: fever or pain) amlodipine 10 mg tablet 5 mg PO DAILY aluminum-magnesium hydroxide 225-200 mg/5 mL suspension 30 ml PO Q4H PRN PRN (Reason: acid reflux) aspirin 81 mg capsule 81 mg PO DAILY atorvastatin 40 mg tablet 40 mg PO DAILY clopidogrel 75 mg tablet 75 mg PO DAILY insulin glargine [Lantus Solostar U-100 Insulin] 100 unit/mL (3 mL) insulin pen 18 unit subcut .qam levetiracetam 500 mg tablet 500 mg PO BID losartan 25 mg tablet 50 mg PO DAILY metoprolol tartrate 25 mg tablet 25 mg PO BID Rx Instructions: hold for BP 100/60 or hr <60 magnesium hydroxide [Milk of Magnesia] 400 mg/5 mL suspension 30 ml PO DAILY PRN (Reason: constipation) omega-3 acid ethyl esters 1 gram capsule 1 cap PO BID sertraline 25 mg tablet 50 mg PO BID sertraline 50 mg tablet 50 mg PO BID Trulicity 3 mg/0.5 mL pen injector 3 mg subcut MO ondansetron 4 mg tablet,disintegrating 4 mg PO Q8H PRN diphenhydramine HCl [Allergy (diphenhydramine)] 25 mg capsule 25 mg PO PRN diphenhydramine HCl 50 mg capsule 50 mg PO PRN Mircera 50 mcg/0.3 mL syringe 30 mcg IV QMONTH methylprednisolone sodium succ 125 mg recon soln 125 mg IM PRN iron sucrose 50 mg iron/2.5 mL solution 50 mg IV QWEEK Rx Instructions: administer over 15 minutes epinephrine HCl (PF) 1 mg/mL (1 mL) solution 0.3 mg IM PRN Rx Instructions: do not exceed 12 doses per 24 hrs diphenhydramine HCl 50 mg/mL solution 25 mg IM PRN Rx Instructions: may repeat once in 30-60 minutes if not effective diphenhydramine HCl 50 mg/mL solution 50 mg IM PRN promethazine 25 mg tablet 25 mg PO Q8H PRN metoclopramide HCl [Reglan] 5 mg tablet 10 mg PO .as directed Rx Instructions: take before meals for nausea/vomiting Katelynn-Tiago 0.8 mg tablet 1 tab PO DAILY sevelamer carbonate 800 mg tablet 800 mg PO TID Lokelma 10 gram powder in packet 10 g PO .qweeksunday Patient Comments: takes every week on sundays Discontinued insulin lispro 100 unit/mL insulin pen 1 unit SUBCUT TID Patient Comments: UNDER 200-NO INSULIN 200 TO 250 2 UNITS, 251 TO 300 4 UNITS, 301 TO 350 6 UNITS, ABOVE 350 8 UNITS MAX DAILY UNITS 24 valacyclovir [Valtrex] 500 mg tablet 500 mg PO TID Patient Comments: per [facility], for shingles take for 7 days, started 01/26/2025 Referrals / Follow Up: Marina Odonnell MD [Med Staff - Consulting, Nephrology] - Within 1 Month Luis Miguel Terry MD [Non-Staff -Ordering Privileges, Neurology] - Within 1 Month Referral Note: For vascular dementia Care Physician,No Primary [Primary Care Provider, Medical] Yessy Morgan MD [[facility], Medical] Disposition Disposition (needs filled in before D/C Order can be placed): Group Home Facility
--- NOTE | 2025-02-02 15:29 | CASEMGMT ---
Patient has order for discharge. Patient returning to [facility] skilled level of care. Discharge paperwork and medlist received. RN JUANITA provided discharge paperwork, signed medlist, and transport form to [place] educational assistant teacher to complete discharge.
--- NOTE | 2025-02-02 15:45 | PHA.DC_ITS ---
Pharmacy [facility] Reconciliation Pharmacy Service has performed discharge medication reconciliation for this patient. The patient's discharge medication list was reviewed for discrepancies and discrepancies were resolved. Medications at Discharge Home Medications acetaminophen 325 mg capsule 650 mg PO Q6H PRN fever or pain 11/04/24 acetaminophen 650 mg rectal suppository 650 mg KS Q4H PRN fever or pain 11/04/24 aluminum-magnesium hydroxide 225 mg-200 mg/5 mL oral suspension 30 ml PO Q4H PRN PRN acid reflux 11/04/24 amlodipine 10 mg tablet 5 mg PO DAILY bp 11/04/24 aspirin 81 mg capsule 81 mg PO DAILY blood thinner 11/04/24 atorvastatin 40 mg tablet 40 mg PO DAILY cholesterol 11/04/24 clopidogrel 75 mg tablet 75 mg PO DAILY heart 11/04/24 dulaglutide 3 mg/0.5 mL subcutaneous pen injector (Trulicity) 3 mg subcut MO DM 11/04/24 insulin glargine 100 unit/mL (3 mL) subcutaneous pen (Lantus Solostar U-100 Insulin) 18 unit subcut .qam dm 11/04/24 levetiracetam 500 mg tablet 500 mg PO BID seizures 11/04/24 losartan 25 mg tablet 50 mg PO DAILY 11/04/24 magnesium hydroxide 400 mg/5 mL oral suspension (Milk of Magnesia) 30 ml PO DAILY PRN constipation 11/04/24 metoprolol tartrate 25 mg tablet 25 mg PO BID HTN 11/04/24 omega-3 acid ethyl esters 1 gram capsule 1 cap PO BID supplement 11/04/24 ondansetron 4 mg disintegrating tablet 4 mg PO Q8H PRN nausea/vomiting 11/04/24 sertraline 25 mg tablet 50 mg PO BID mood 11/04/24 sertraline 50 mg tablet 50 mg PO BID 11/04/24 diphenhydramine HCl 25 mg capsule (Allergy (diphenhydramine)) 25 mg PO PRN allergy 01/31/25 diphenhydramine HCl 50 mg capsule 50 mg PO PRN anaphylaxsis/allergy 01/31/25 diphenhydramine HCl 50 mg/mL injection solution 25 mg IM PRN anaphylaxsis 01/31/25 diphenhydramine HCl 50 mg/mL injection solution 50 mg IM PRN anaphylaxisis 01/31/25 epinephrine HCl (PF) 1 mg/mL (1 mL) injection solution 0.3 mg IM PRN anaphylaxsis 01/31/25 epoetin beta, methoxy peg 50 mcg/0.3 mL injection syringe (Mircera) 30 mcg IV QMONTH used for dialysis 01/31/25 iron sucrose 50 mg iron/2.5 mL intravenous solution 50 mg IV QWEEK dialysis 01/31/25 methylprednisolone sodium succ 125 mg solution for injection 125 mg IM PRN anaphylaxsis/allergy 01/31/25 metoclopramide HCl 5 mg tablet (Reglan) 10 mg PO .as directed nausea/ vomiting 01/31/25 promethazine 25 mg tablet 25 mg PO Q8H PRN nausea/vommiting 01/31/25 sevelamer carbonate 800 mg tablet 800 mg PO TID high BP 01/31/25 sodium zirconium cyclosilicate 10 gram oral powder packet (Lokelma) 10 g PO .qweeksunday hypokalemia 01/31/25 vitamin B complex-vitamin C-folic acid 0.8 mg tablet (Katelynn-Tiago) 1 tab PO DAILY supplement 01/31/25 insulin lispro 100 unit/mL subcutaneous pen (Humalog KwikPen (U-100) Insulin) See Protocol subcut Q6 #0 mL 02/02/25 sennosides 8.6 mg-docusate sodium 50 mg tablet (Stimulant Laxative Plus) 2 tab PO BID #0 tabs 02/02/25 tizanidine 2 mg tablet 2 mg PO Q8 PRN muscle pain/spasm #0 tabs 02/02/25
--- NOTE | 2025-02-02 15:48 | CASEMGMT ---
Addendum entered by Duyen Bright 02/02/25 16:03: Call rec'd from pts . Updated her on discharge plans back to [facility]. Verfied that Chepe is pts alternate POA and is his step-son. Duyen Bright DC Planning Asst. Original Note: Discharge Planning Discharge orders, signed med list, and transport time sent via [facility] to [facility]. Physicians will transport pt by cot at 4:30p. Nursing and SW updated. left for pts and son (Chepe). Duyen Bright DC Planning Asst.
== END 2025-02-02 17:15 | disposition skilled nursing facility (03) | DRG 70 ==
LOC: ED 10:09 → PCU 11:45
PROVIDERS: Admitting Provider Internal Medicine; Emergency Provider Emergency Medicine; Visit Provider Internal Medicine
DX: G93.41 Metabolic encephalopathy (principal); N18.6 End stage renal disease; F01.52 Vascular dementia, unspecified severity, with psychotic disturbance; I12.0 Hypertensive chronic kidney disease with stage 5 chronic kidney disease or end stage renal disease; I67.82 Cerebral ischemia; E11.22 Type 2 diabetes mellitus with diabetic chronic kidney disease; G40.909 Epilepsy, unspecified, not intractable, without status epilepticus; I34.0 Nonrheumatic mitral (valve) insufficiency; G93.89 Other specified disorders of brain; E78.5 Hyperlipidemia, unspecified; J32.9 Chronic sinusitis, unspecified; K21.9 Gastro-esophageal reflux disease without esophagitis; M48.02 Spinal stenosis, cervical region; M17.10 Unilateral primary osteoarthritis, unspecified knee; Z99.2 Dependence on renal dialysis; F17.210 Nicotine dependence, cigarettes, uncomplicated; Z79.4 Long term (current) use of insulin; R41.82 Altered mental status, unspecified; B95.4 Other streptococcus as the cause of diseases classified elsewhere; R47.81 Slurred speech; R29.709 NIHSS score 9; Z79.899 Other long term (current) drug therapy; Z79.82 Long term (current) use of aspirin; Z79.02 Long term (current) use of antithrombotics/antiplatelets; Z86.73 Personal history of transient ischemic attack (TIA), and cerebral infarction without residual deficits
CPT/HCPCS: 36415; 70450; 70486; 70496; 70498; 70551; 71045; 73560; 74230; 80048; 80061; 82962; 83036; 83605; 83735; 84443; 84484; 85025; 87040; 87149; 87186; 90937; 92526; 92611; 93005; 93306; 97163; 97167; 97802; 99285; Q9967; A4216; G0257

== ENCOUNTER 2025-02-08 00:25 | Inpatient (IN) | payer MEDICARE, MEDICAID, SELFPAY ==
[2025-02-08] VITALS (8 sets, daily range): BP systolic 146–186; BP diastolic 59–82; PULSE 58–76; RESP 14–18; TEMP 36.5–36.6; O2SAT 93–98; BMI 25.8; BMI 23.9
--- NOTE | 2025-02-08 00:32 | RAD_ITS ---
PROCEDURE: HIP, UNI W/ PELVIS 2-3 VIEWS 02/08/2025 REASON FOR EXAM: PAIN/FALL TECHNIQUE: Procedure Code: RADHP Modality: DX Procedure: HIP, UNI W/ PELVIS 2-3 VIEWS Laterality: Right. COMPARISON: None. FINDINGS: Acute nondisplaced fracture of the right femoral neck. Mild osteopenia of the visualized bones. Degenerative joint disease. No dislocation is seen. No lytic or blastic bone lesion is noted. RAD/HIP, UNI W/ Pelvis 2-3 Views IMPRESSION: Acute nondisplaced fracture of the right femoral neck. Reading Location[facility]
--- NOTE | 2025-02-08 00:34 | EKG12_ITS ---
Test Reason : FALL Blood Pressure : */* mmHG Vent. Rate : 69 BPM Atrial Rate : 69 BPM P-R Int : 154 ms QRS Dur : 104 ms QT Int : 462 ms P-R-T Axes : 30 26 38 degrees QTcB Int : 495 ms Normal sinus rhythm with sinus arrhythmia QTcB >= 480 msec Abnormal ECG Confirmed by ANGIE ZEE, SUSAN ([id number]), supervising editor news reel MARY ALVARENGA ([id number]) on 02/08/2025 12:24:47 PM Referred By: Confirmed By: SUSAN ADAMS MD
--- NOTE | 2025-02-08 00:36 | ED.VIS.FALL ---
HPI HPI - Fall History of Present Illness Chief Complaint: Lower Extremity Injury Informant: patient and EMS Narrative Narrative: Patient is a 69-year-old male with a history of dementia presenting with right hip and thigh pain following a fall. - Patient was transferred to ER from a senior living after a fall. - Reports right hip and thigh pain. - Describes a fall where he was leaning against a nightstand, which slid, causing him to fall to the floor. - Denies abdominal, rib, or chest pain. - Reports prior left shoulder pain from this fall, now better. - Denies current head pain; notes a lump on the back of his head, reportedly present for a long time. - HPI is limited secondary to patient's dementia. [facility] Medical History (Updated 02/08/25 @ 01:[address] Alfonzo Andres MD) Dysphagia TIA (transient ischemic attack) Depression Psychosis Vascular dementia Type II diabetes mellitus End stage kidney disease Convulsion Hyperlipemia Legal blindness GERD (gastroesophageal reflux disease) Dependence on renal dialysis Weakness UTI (urinary tract infection) Home Medications ?Medication ?Instructions ?Recorded ?Last Taken ?Type acetaminophen 325 mg capsule 650 mg PO Q6H PRN fever or pain 11/04/24 Unknown History acetaminophen 650 mg rectal 650 mg TN Q4H PRN fever or pain 11/04/24 Unknown History suppository aluminum-magnesium hydroxide 225 30 ml PO Q4H PRN PRN acid reflux 11/04/24 Unknown History mg-200 mg/5 mL oral suspension amlodipine 10 mg tablet 5 mg PO DAILY bp 11/04/24 Unknown History aspirin 81 mg capsule 81 mg PO DAILY blood thinner 11/04/24 Unknown History atorvastatin 40 mg tablet 40 mg PO DAILY cholesterol 11/04/24 Unknown History clopidogrel 75 mg tablet 75 mg PO DAILY Left internal 11/04/24 Unknown History carotid artery stenosis dulaglutide 3 mg/0.5 mL 3 mg subcut MO DM 11/04/24 Unknown History subcutaneous pen injector (Trulicity) insulin glargine 100 unit/mL (3 18 unit subcut .HS dm 11/04/24 Unknown History mL) subcutaneous pen (Lantus Solostar U-100 Insulin) levetiracetam 500 mg tablet 500 mg PO BID seizures 11/04/24 Unknown History losartan 25 mg tablet 50 mg PO DAILY 11/04/24 Unknown History magnesium hydroxide 400 mg/5 mL 30 ml PO DAILY PRN constipation 11/04/24 Unknown History oral suspension (Milk of Magnesia) metoprolol tartrate 25 mg tablet 25 mg PO BID HTN 11/04/24 Unknown History omega-3 acid ethyl esters 1 gram 1 cap PO BID supplement 11/04/24 Unknown History capsule ondansetron 4 mg disintegrating 4 mg PO Q8H PRN nausea/vomiting 11/04/24 Unknown History tablet sertraline 25 mg tablet 25 mg PO DAILY depression 11/04/24 Unknown History sertraline 50 mg tablet 50 mg PO BID depression 11/04/24 Unknown History diphenhydramine HCl 25 mg capsule 25 mg PO PRN allergy 01/31/25 Unknown History (Allergy (diphenhydramine)) diphenhydramine HCl 50 mg capsule 50 mg PO PRN anaphylaxsis/allergy 01/31/25 Unknown History diphenhydramine HCl 50 mg/mL 25 mg IM PRN anaphylaxsis 01/31/25 Unknown History injection solution diphenhydramine HCl 50 mg/mL 50 mg IM PRN anaphylaxisis 01/31/25 Unknown History injection solution epinephrine HCl (PF) 1 mg/mL (1 0.3 mg IM PRN anaphylaxsis 01/31/25 Unknown History mL) injection solution epoetin beta, methoxy peg 50 30 mcg IV QMONTH used for dialysis 01/31/25 Unknown History mcg/0.3 mL injection syringe (Mircera) iron sucrose 50 mg iron/2.5 mL 50 mg IV QWEEK dialysis 01/31/25 Unknown History intravenous solution methylprednisolone sodium succ 125 125 mg IM PRN anaphylaxsis/allergy 01/31/25 Unknown History mg solution for injection metoclopramide HCl 5 mg tablet 10 mg PO .as directed nausea/ 01/31/25 Unknown History (Reglan) vomiting promethazine 25 mg tablet 25 mg PO Q8H PRN nausea/vommiting 01/31/25 Unknown History sevelamer carbonate 800 mg tablet 800 mg PO TID high BP 01/31/25 Unknown History sodium zirconium cyclosilicate 10 10 g PO .qweeksunday hypokalemia 01/31/25 01/30/25 History gram oral powder packet (Lokelma) vitamin B complex-vitamin C-folic 1 tab PO DAILY supplement 01/31/25 Unknown History acid 0.8 mg tablet (Katelynn-Tiago) sennosides 8.6 mg-docusate sodium 2 tab PO BID #0 tabs 02/02/25 Unknown Rx 50 mg tablet (Stimulant Laxative Plus) tizanidine 2 mg tablet 2 mg PO Q8 PRN muscle pain/spasm 02/02/25 Unknown Rx #0 tabs bisacodyl 10 mg rectal suppository 10 mg TN DAILY PRN constipation 02/08/25 Unknown History glucagon HCl 1 mg solution for 1 mg IM Q20M PRN hypoglycemia 02/08/25 Unknown History injection (Glucagon (HCl) Emergency Kit) guaifenesin 100 mg/5 mL oral liquid 200 mg PO Q4H PRN cough, congestion 02/08/25 Unknown History insulin lispro 100 unit/mL See Protocol subcut .before meals 02/08/25 Unknown History subcutaneous pen (Humalog KwikPen DM (U-100) Insulin) sodium phosphates 19 gram-7 118 ml TN DAILY PRN constipation 02/08/25 Unknown History gram/118 mL enema (Fleet Enema) Allergy/AdvReac Type Severity Reaction Status Date / Time No Known Allergies Allergy Verified 02/08/25 00:27 Social History Smoking Status: Former smoker ROS ROS ED Review of Systems ROS Unobtainable: due to mental condition Constitutional Constitutional ED: Denies chills or fever(s) Eyes Eyes: Denies change in vision ENT ENT ED: Denies ear pain or facial pain Cardiovascular Cardiovascular: Denies chest pain Respiratory/Chest Respiratory/Chest: Denies dyspnea Gastrointestinal Gastrointestinal: Denies abdominal pain or nausea Musculoskeletal Musculoskeletal: Reports back pain and extremity pain; Denies neck pain Integumentary Denies Abrasions, rash or wounds Neurologic Neurologic: Denies headache(s), paresthesias or weakness EXAM Physical Exam Const Vital Signs: 02/08/25 00:27 Temperature 97.7 F L Temperature Source Oral Pulse Rate 72 Respiratory Rate 18 Blood Pressure 186/75 H Blood Pressure Mean 112 Pulse Ox 96 Oxygen Delivery Method Room Air Positive well nourished and well developed General Appearance ED: well developed and NAD HEENT Reports TM's clear and nasal mucous membranes and turbinates normal HEENT Narrative: Palpable nontender soft tissue scalp lump left occipital. No crepitus or depression. No other signs of head trauma. No Waggoner sign, no raccoon eyes, no CSF otorhinorrhea, no hemotympanum. atraumatic Face and Sinus: Negative for facial tenderness Tympanic Membrane ED: Yes TM's clear Eyes PERRL and EOMs intact bilaterally Visual Acuity: other Other Details: no entrapment or pain with extraocular movements Neck full ROM and supple General: Negative for tenderness Chest Wall inspection of chest normal and palpation of chest normal Chest: symmetrical chest wall rise; Negative for crepitus or tenderness Resp normal respiratory effort and clear to auscultation bilaterally Percussion: other equal BS bilat Cardio Rate: regular rate Rhythm: regular rhythm GI normal to inspection, nondistended, normoactive bowel sounds, soft to palpation and non-tender Narrative: Pelvis stable APC. Back/Spine normal ROM and normal to inspection Back/Spine Narrative: No back pain when we help to range him. Cervical Spine: Negative for cervical spine tenderness Thoracic Spine / Upper Back: Negative for thoracic spinal tenderness Lumbar Spine / Lower Back: Negative for lumbar spinal tenderness Extremity normal to inspection Extremity Narrative: Tender at the right greater trochanter. No other tenderness in the thigh. All compartments are soft and nondistended and normal-appearing. Significant right hip pain with gentle attempted passive internal and external rotation. No deformities or shortening compared with the contralateral side. No tenderness distal to the thigh. Full range of motion of the upper extremities and the left lower extremity without limitation or discomfort. No left shoulder tenderness or signs of trauma. No acromioclavicular joint tenderness or clavicle tenderness or other chest tenderness. General Extremety ED: Yes tenderness Neuro no focal motor deficits and no sensory deficits noted [place] Coma Scale: document GCS findings Spontaneous Obeys Commands Confused 14 Sensorium / Orientation: alert, oriented to person, oriented to place and orientation impaired; Negative for oriented to time Psych mental status grossly normal and thought process normal Skin no wounds Lesions: no lesions Rashes: no rashes MDM MDM MDM Narrative Medical decision making narrative: Assessment: The patient is a 69-year-old male with PMH of end-stage renal disease on hemodialysis and vascular dementia presenting for right hip pain after a witnessed or reported fall. Bedside exam localizes pain to the right hip without obvious shortening or deformity. My interpretation of a 3-view pelvis/right hip radiograph reveals a non-displaced transcervical fracture of the right femoral neck, consistent with clinical findings. Screening chest x-ray shows widened mediastinum and cardiomegaly but no acute infiltrate. Non-contrast head CT shows chronic encephalomalacia/infarcts without acute bleed, appropriate given his dementia and uncertain baseline. Labs notable for chronic anemia (Hgb 9.0 g/dL) and known CKD/ESRD; no acute metabolic derangements. Most likely diagnosis is closed, non-displaced right femoral neck fracture following ground-level fall. Plan: - Provided ED analgesia for hip fracture pain. - Admitting to hospitalist service; ortho consulted for operative planning. - Confirmed facility capability for hemodialysis during admission. - Fall precautions instituted; hip fracture pathway initiated. Diagnostics: - 3-view pelvis and right hip x-ray: non-displaced transcervical fracture of the right femoral neck; no shortening or gross deformity. Independently interpreted by Alfonzo manning. - Screening 1-view chest x-ray: widened mediastinum and cardiomegaly; no acute pulmonary process. Independently interpreted by Alfonzo manning. - Non-contrast CT head: chronic encephalomalacia/infarcts; no acute hemorrhage. Independently interpreted by Alfonzo manning. - Labs: hemoglobin 9.0 g/dL consistent with chronic anemia; renal panel consistent with ESRD. Consultations: - Orthopedics ? discussed with Dr. Stevenson; accepted for co-management of hip fracture. - Hospitalist ? discussed admission; accepted to inpatient service. Lab Data Attestation: I reviewed the patient's lab results. Labs: Laboratory Results - last 24 hr 02/08/25 00:47 WBC 8.4 RBC 2.74 L Hgb 9.0 L Hct 27.6 L MCV 100.7 H MCH 32.8 H MCHC 32.6 RDW Std Deviation 52.3 H RDW Coeff of Corina 14.4 Plt Count 246 MPV 9.6 Immature Gran % (Auto) 0.500 Neut % (Auto) 54.6 Lymph % (Auto) 32.9 Young % (Auto) 7.9 Eos % (Auto) 3.6 Baso % (Auto) 0.5 Absolute Neuts (auto) 4.6 Absolute Lymphs (auto) 2.76 Nucleated RBC % 0 Sodium 144 Potassium 3.9 Chloride 97 L Carbon Dioxide 34.6 H Anion Gap 12 BUN 31 H Creatinine 4.38 H Estim Creat Clear Calc 17.47 L Est GFR (MDRD) Non-Af 14 L BUN/Creatinine Ratio 7.1 L Glucose 125 H Calcium 8.8 Radiography Diagnostic Testing: Clinical Impression(s) from Imaging Studies Hip/Pelvis X-Ray 02/08/25 00:32 IMPRESSION: Acute nondisplaced fracture of the right femoral neck. Reading Location: [place] [address] 02/08/25 01:05 IMPRESSION: No acute territorial cerebrovascular insult. If clinical symptoms persist, further evaluation with MRI may be considered as clinically warranted. No intracerebral or extra axial hemorrhage Bilateral cerebral chronic infarcts. Bilateral cerebral microvascular ischemic changes with brain involutional changes. No interval changes. Reading [facility] Chest X-Ray 02/08/25 01:10 IMPRESSION: No evidence for acute abnormality. Reading Location: [place] [address] Rhythm Strip Rhythm Strip: Sinus Rhythm Rate: 70 Ectopy: None EKG Initial EKG: Attestation: I personally reviewed and interpreted this EKG as follows: Interpretation: Sinus Rhythm and No Acute Injury Pattern Management Discussion w/another healthcare provider: Hospitalist and [employer] (swapna stevenson) Discharge Plan Dx/Rx/DC Orders Clinical Impression: Traumatic closed nondisplaced fracture of neck of right femur, ESRD on hemodialysis, Fall from slip, trip, or stumble, Vascular dementia, Anemia due to chronic kidney disease Disposition Disposition: Acute Care Hospital [facility] Discharge Date/Time: 02/08/25 03:12
[2025-02-08 00:54] LABS: Hematocrit 27.6 % (40-54); Hemoglobin 9.0 g/dL (13.0-16.5); Immature Granulocytes Count 0.040 X10^3/uL (0.0-0.0); Mean Corp Hgb Conc 32.6 g/dL (32-36); Mean Corpuscular Volume 100.7 fL (80-94); Mean Platelet Vol. 9.6 fl (6.2-12.0); NRBC Flagged by Analyzer 0 % (0-5); Platelet Count 246 K/mm3 (150-450); RBC Distribution Width CV 14.4 % (11.6-14.6); RBC Distribution Width SD 52.3 fl (35.1-43.9); Red Blood Count 2.74 M/mm3 (4.6-6.2); White Blood Count 8.4 K/mm3 (4.4-11.0)
--- NOTE | 2025-02-08 01:05 | CT_ITS ---
PROCEDURE: BRAIN/HEAD WITHOUT CONTRAST 02/08/2025 REASON FOR EXAM: FALL, CONFUSION TECHNIQUE: Procedure Code: CTBR Modality: CT Procedure: BRAIN/HEAD WITHOUT CONTRAST Coronal and Sagittal reconstruction series were provided. One or more dose reduction techniques were used (e.g., Automated exposure control, adjustment of the mA and/or kV according to patient size, use of iterative reconstruction technique. RADIATION DOSE SUMMARY: CTDI Vol 44.99 mGy DLP :846.73 mGycm COMPARISON: 01-Feb-2025 FINDINGS: Bilateral cerebral cortical and subcortical as well as periventricular hypodense areas of CSF like density with exvacudilatation of the overlying cortical sulci as well as the related aspect of the lateral ventricle. Accentuated bilateral cerebral periventricular white matter hypodensities denoting hypoperfusion. Unremarkable appearance of the brain stem and cerebellum. No intracerebral or extra axial hemorrhage No definite calvarial fractures. Dilated ventricular system, cortical sulci and extra-axial CSF spaces. No midline shifts or deformity. The osseous structures in the skull base are unremarkable. Paranasal sinuses show sphenoid sinusitis. Vascular atheromatous calcifications. CT/Brain/Head without Contrast IMPRESSION: No acute territorial cerebrovascular insult. If clinical symptoms persist, furt her evaluation with MRI may be considered as clinically warranted. No intracerebral or extra axial hemorrhage Bilateral cerebral chronic infarcts. Bilateral cerebral microvascular ischemic changes with brain involutional carrion es. No interval changes. Reading [facility] [id number]
--- NOTE | 2025-02-08 01:10 | RAD_ITS ---
PROCEDURE: CHEST 1 VIEW (PORTABLE) 02/08/2025 REASON FOR EXAM: FALL TECHNIQUE: Frontal view of the chest. COMPARISON: 01/31/2025. FINDINGS: The lungs are expanded. There is no demonstrated parenchymal abnormality. There is no demonstrated pleural abnormality. Enlarged cardiac silhouette. Normal mediastinum and michael. Normal visualized pulmonary arteries. Atheromatous plaques of the visualized aortic arch and descending thoracic aorta. Diffuse spondylosis of the visualized thoracic spine. Normal visualized ribs, clavicles. Degenerative joint disease. There is no demonstrated abnormality of the visualized soft tissue structures of the upper abdomen. RAD/Chest 1 View (Portable) IMPRESSION: No evidence for acute abnormality. Reading Location: [facility]
[2025-02-08 01:24] LABS: Anion Gap 12 (5-15); BUN 31 mg/dL (4-19); BUN/Creat Ratio 7.1 RATIO (10-20); Calcium,Total 8.8 mg/dL (7.6-11.0); Carbon Dioxide 34.6 mmol/L (21.0-32.0); Chloride 97 mmol/L (98-108); Estimated Creatinine Clearance 17.47 ml/min (50-250); Glucose 125 mg/dL (70-99); Potassium 3.9 mmol/L (3.3-5.1)
--- NOTE | 2025-02-08 01:51 | PCM.HP.STD ---
[facility] - General General Date of Admission: 02/08/25 Date of Service: 02/08/25 Chief Complaint: Fall with injury HPI Narrative LEONARDO RUELAS, is a 69 M who presents to the emergency room with a chief complaint of right hip pain after a fall that he suffered approximately 2 days ago (this may be questionable as patient is a poor historian). Patient has significant past medical history of dementia and lives at a group home. Patient reportedly described the fall as leaning against the nightstand which caused him to slide down to fall to the floor. Patient denies any abdominal rib or chest pain. Patient denies hitting his head and another history is limited due to patient's dementia. X-ray hip reveals right hip fracture and patient did request pain medication while I was evaluating him. Patient is also on chronic dialysis for kidney failure. No fevers or chills, no nausea or vomiting reported. He will be admitted to the general medical floor and orthopedic surgery consulted. [facility] Medical History (Updated 02/08/25 @ 01:[address] Alfonzo Andres MD) Dysphagia TIA (transient ischemic attack) Depression Psychosis Vascular dementia Type II diabetes mellitus End stage kidney disease Convulsion Hyperlipemia Legal blindness GERD (gastroesophageal reflux disease) Dependence on renal dialysis Weakness UTI (urinary tract infection) Home Medications ?Medication ?Instructions ?Recorded ?Last Taken ?Type acetaminophen 325 mg capsule 650 mg PO Q6H PRN fever or pain 11/04/24 Unknown History acetaminophen 650 mg rectal 650 mg MO Q4H PRN fever or pain 11/04/24 Unknown History suppository aluminum-magnesium hydroxide 225 30 ml PO Q4H PRN PRN acid reflux 11/04/24 Unknown History mg-200 mg/5 mL oral suspension amlodipine 10 mg tablet 5 mg PO DAILY bp 11/04/24 Unknown History aspirin 81 mg capsule 81 mg PO DAILY blood thinner 11/04/24 Unknown History atorvastatin 40 mg tablet 40 mg PO DAILY cholesterol 11/04/24 Unknown History clopidogrel 75 mg tablet 75 mg PO DAILY heart 11/04/24 Unknown History dulaglutide 3 mg/0.5 mL 3 mg subcut MO DM 11/04/24 Unknown History subcutaneous pen injector (Trulicity) insulin glargine 100 unit/mL (3 18 unit subcut .qam dm 11/04/24 Unknown History mL) subcutaneous pen (Lantus Solostar U-100 Insulin) levetiracetam 500 mg tablet 500 mg PO BID seizures 11/04/24 Unknown History losartan 25 mg tablet 50 mg PO DAILY 11/04/24 Unknown History magnesium hydroxide 400 mg/5 mL 30 ml PO DAILY PRN constipation 11/04/24 Unknown History oral suspension (Milk of Magnesia) metoprolol tartrate 25 mg tablet 25 mg PO BID HTN 11/04/24 Unknown History omega-3 acid ethyl esters 1 gram 1 cap PO BID supplement 11/04/24 Unknown History capsule ondansetron 4 mg disintegrating 4 mg PO Q8H PRN nausea/vomiting 11/04/24 Unknown History tablet sertraline 25 mg tablet 25 mg PO DAILY mood 11/04/24 Unknown History sertraline 50 mg tablet 50 mg PO BID 11/04/24 Unknown History diphenhydramine HCl 25 mg capsule 25 mg PO PRN allergy 01/31/25 Unknown History (Allergy (diphenhydramine)) diphenhydramine HCl 50 mg capsule 50 mg PO PRN anaphylaxsis/allergy 01/31/25 Unknown History diphenhydramine HCl 50 mg/mL 25 mg IM PRN anaphylaxsis 01/31/25 Unknown History injection solution diphenhydramine HCl 50 mg/mL 50 mg IM PRN anaphylaxisis 01/31/25 Unknown History injection solution epinephrine HCl (PF) 1 mg/mL (1 0.3 mg IM PRN anaphylaxsis 01/31/25 Unknown History mL) injection solution epoetin beta, methoxy peg 50 30 mcg IV QMONTH used for dialysis 01/31/25 Unknown History mcg/0.3 mL injection syringe (Mircera) iron sucrose 50 mg iron/2.5 mL 50 mg IV QWEEK dialysis 01/31/25 Unknown History intravenous solution methylprednisolone sodium succ 125 125 mg IM PRN anaphylaxsis/allergy 01/31/25 Unknown History mg solution for injection metoclopramide HCl 5 mg tablet 10 mg PO .as directed nausea/ 01/31/25 Unknown History (Reglan) vomiting promethazine 25 mg tablet 25 mg PO Q8H PRN nausea/vommiting 01/31/25 Unknown History sevelamer carbonate 800 mg tablet 800 mg PO TID high BP 01/31/25 Unknown History sodium zirconium cyclosilicate 10 10 g PO .qweeksunday hypokalemia 01/31/25 01/30/25 History gram oral powder packet (Lokelma) vitamin B complex-vitamin C-folic 1 tab PO DAILY supplement 01/31/25 Unknown History acid 0.8 mg tablet (Katelynn-Tiago) insulin lispro 100 unit/mL See Protocol subcut Q6 #0 mL 02/02/25 Unknown Rx subcutaneous pen (Humalog KwikPen (U-100) Insulin) sennosides 8.6 mg-docusate sodium 2 tab PO BID #0 tabs 02/02/25 Unknown Rx 50 mg tablet (Stimulant Laxative Plus) tizanidine 2 mg tablet 2 mg PO Q8 PRN muscle pain/spasm 02/02/25 Unknown Rx #0 tabs Allergy/AdvReac Type Severity Reaction Status Date / Time No Known Allergies Allergy Verified 02/08/25 00:27 Social History Smoking Status: Former smoker ROS Constitutional Constitutional: Denies chills or fever(s) Eyes Eyes: Denies blurry vision ENT HEENT: Denies abnormal hearing Cardiovascular Cardiovascular: Denies chest pain Respiratory/Chest Respiratory/Chest: Denies shortness of breath at rest Gastrointestinal Gastrointestinal: Denies abdominal pain Genitourinary Genitourinary: Denies dysuria Musculoskeletal Musculoskeletal: Reports joint pain Integumentary Integumentary: Denies dry skin Neurologic Neurologic: Denies focal weakness Psychiatric Psychiatric: Denies anxiety Vital Signs Vital Signs Vital Signs: 02/08/25 00:27 Temperature 97.7 F L Temperature Source Oral Pulse Rate 72 Respiratory Rate 18 Blood Pressure 186/75 H Blood Pressure Mean 112 Pulse Ox 96 Oxygen Delivery Method Room Air Weight Weight: 190 lb 11.198 oz Body Mass Index (BMI) 25.8 Physical Exam Const alert General Appearance: cooperative and well developed HEENT normocephalic and head/scalp atraumatic Eyes PERRL Neck no lymphadenopathy Lymph Lymphatic: no lymphadenopathy noted Resp normal respiratory effort, normal air movement and clear to auscultation bilaterally Cardio regular rate, regular rhythm, S1 normal heart sound and S2 normal heart sound GI normal to inspection, nondistended, normoactive bowel sounds Extremity Extremity Narrative: Right hip tenderness Skin General Skin Exam: no breakdown Neuro no focal motor deficits and no sensory deficits noted Psych cooperative and affect normal Results Lab / Micro Data 02/08/25 00:47 02/08/25 00:47 Labs: Laboratory Results - last 24 hr 02/08/25 00:47: WBC 8.4, RBC 2.74 L, Hgb 9.0 L, Hct 27.6 L, MCV 100.7 H, MCH 32.8 H, MCHC 32.6, RDW Std Deviation 52.3 H, RDW Coeff of Corina 14.4, Plt Count 246, MPV 9.6, Immature Gran % (Auto) 0.500, Neut % (Auto) 54.6, Lymph % (Auto) 32.9, [place] % (Auto) 7.9, Eos % (Auto) 3.6, Baso % (Auto) 0.5, Absolute Neuts (auto) 4.6, Absolute Lymphs (auto) 2.76, Nucleated RBC % 0, Sodium 144, Potassium 3.9, Chloride 97 L, Carbon Dioxide 34.6 H, Anion Gap 12, BUN 31 H, Creatinine 4.38 H, Estim Creat Clear Calc 17.47 L, Est GFR (MDRD) Non-Af 14 L, BUN/Creatinine Ratio 7.1 L, Glucose 125 H, Calcium 8.8 Rhythm Strip Rhythm Strip: Sinus Rhythm Rate: 70 Ectopy: None Imaging Radiology Impression Brain CT 02/08/25 01:05 IMPRESSION: No acute territorial cerebrovascular insult. If clinical symptoms persist, further evaluation with MRI may be considered as clinically warranted. No intracerebral or extra axial hemorrhage Bilateral cerebral chronic infarcts. Bilateral cerebral microvascular ischemic changes with brain involutional changes. No interval changes. Reading Location: [place] [address] Assessment & Plan Assessment/Plan (1) Anemia due to chronic kidney disease: (2) Vascular dementia: (3) Fall from slip, trip, or stumble: (4) Traumatic closed nondisplaced fracture of neck of right femur: (5) ESRD on hemodialysis: PLAN: Plan 1 fall with fracture right hip?admit patient to general medical floor will give Dilaudid 1 mg IV every 2 hours as needed pain, consult Dr. Yoon, maintain patient n.p.o. until evaluated by orthopedic surgery. Repeat CBC BMP and coag panels in the a.m. 2. Vascular dementia?continue routine home medications 3. End-stage renal disease, consult nephrology for continued dialysis management 4. DVT prophylaxis?SCD on left lower extremity 5. CODE STATUS full verified
[2025-02-08 05:15] LABS: Hematocrit 25.1 % (40-54); Hemoglobin 7.9 g/dL (13.0-16.5); Immature Granulocytes Count 0.050 X10^3/uL (0.0-0.0); Mean Corp Hgb Conc 31.5 g/dL (32-36); Mean Corpuscular Volume 104.6 fL (80-94); Mean Platelet Vol. 10.0 fl (6.2-12.0); NRBC Flagged by Analyzer 0 % (0-5); Platelet Count 249 K/mm3 (150-450); RBC Distribution Width CV 14.4 % (11.6-14.6); RBC Distribution Width SD 54.5 fl (35.1-43.9); Red Blood Count 2.40 M/mm3 (4.6-6.2); White Blood Count 7.5 K/mm3 (4.4-11.0)
[2025-02-08 05:42] LABS: Anion Gap 13 (5-15); BUN 34 mg/dL (4-19); BUN/Creat Ratio 7.1 RATIO (10-20); Calcium,Total 8.3 mg/dL (7.6-11.0); Carbon Dioxide 32.8 mmol/L (21.0-32.0); Chloride 98 mmol/L (98-108); Estimated Creatinine Clearance 16.76 ml/min (50-250); Glucose 123 mg/dL (70-99); Potassium 3.8 mmol/L (3.3-5.1)
--- NOTE | 2025-02-08 09:24 | PCM.HOSP.N ---
Hospitalist Note Patient evaluated at bedside, woke patient up and asked all he is feeling he said I am asleep, asked for anything was bothering him other than his current pain and he said no. Resting comfortably with no new or acute complaints. # Right femoral neck fracture - N.p.o. - Ortho consult - Supportive care/pain control -PT/OT/CM consults #Type 2 diabetes mellitus -Glucose checks and sliding scale insulin - Long acting held, patient n.p.o. #Hypertension - Seem to be improving with pain control, continue to monitor, resume metoprolol, amlodipine, and losartan likely postoperatively as blood pressure tolerates - Will continue to monitor #ESRD on HD -Consult nephrology -Renal diet when patient longer n.p.o. -Daily weights, I's and O's #Depression/anxiety -Continue home medications #Seizure disorder -Presently maintained on Keppra -Continue home regimen # History of left internal carotid artery stenosis - Resume antiplatelets when okay to do so by Ortho -Statin held, per chart review last time patient was here earlier this month did not want him to be on atorvastatin/receive atorvastatin, unclear reason for this #DVT ppx: SCDs Virginie Ely MD
[2025-02-08] MEDS: 0.9% Saline Lock 10 ML Syringe IV ×2 (10:31→15:49)
[2025-02-08] MEDS: HYDROmorphone 0.5 MG/0.5 ML SYRINGE IV ×2 (10:31→15:50)
[2025-02-08] MEDS: Senna/Docusate Sodium 1 Tablet 2 TABLET PO ×2 (10:31→20:17)
[2025-02-08] MEDS: SEVELAMER CARBONATE 800 MG TABLET PO ×2 (10:39→15:56)
--- NOTE | 2025-02-08 10:51 | WOUNDNOTE ---
wound photo: left lateral buttock
--- NOTE | 2025-02-08 11:23 | CASEMGMT ---
Social Work SW called pt's , confirmed that the plan for pt will be to return to [facility] at discharge, so SNF list is not needed. She states spoke to the orthopedic surgeon and it's her understanding pt is to have surgery today. SW offered support to . SW will continue to follow for return to [facility] when appropriate. ANN Garcia
--- NOTE | 2025-02-08 11:39 | CASEMGMT ---
Addendum entered by Duyen Bright 02/08/25 12:13: [facility] would like to skill pt when he returns. Pt can return while waiting on precert. Duyen Bright DC Planning Asst. Original Note: Discharge Planning Updates sent via [facility] to [facility] with note asking if they will want to skill pt upon return. Awaiting response. Duyen Bright DC Planning Asst.
--- NOTE | 2025-02-08 17:35 | PCM.CONS.GEN ---
Assessment & Plan Assessment/Plan (1) Fracture of femoral neck, right, closed: QUALIFIERS: Encounter type: initial encounter Qualified Code(s): S72.001A - Fracture of unspecified part of neck of right femur, initial encounter for closed fracture PLAN: Plan Thorough discussion was had with the patient as well as his Marika and his daughter Iza Hairston is the power of personal injury attorney after thorough discussion with them in regards to operative versus nonoperative intervention options including percutaneous screw fixation versus hemiarthroplasty. Respites alternatives of both were reviewed including risk of bleeding infection nerve artery tissue damage need for further surgery continued pain leg length discrepancy dislocation intraoperative fracture and expected postoperative course. Patient and family wish to proceed with a right hip hemiarthroplasty will proceed tomorrow 02/09/2025 at 1230 is currently scheduled if he is medically cleared. HPI Consult Data Date of Consult: 02/08/25 HPI Narrative HPI Narrative: LEONARDO RUELAS, is a 69 M who presents after ground-level fall from a long term states had 2 falls 1 on Friday and 1 on Friday. Patient has significant groin pain x-rays were taken which demonstrated nondisplaced femoral neck fracture in her emergency room. Patient denies other complaints besides upper right thigh pain. He does ambulate although he does have some dementia and multiple medical comorbidities. [facility] Medical History (Updated 02/08/25 @ 17:[address] Isaias Monique, ) Anemia Current use of insulin Dysphagia TIA (transient ischemic attack) Depression Psychosis Vascular dementia Type II diabetes mellitus End stage kidney disease Convulsion Hyperlipemia Legal blindness GERD (gastroesophageal reflux disease) Dependence on renal dialysis Weakness UTI (urinary tract infection) Home Medications ?Medication ?Instructions ?Recorded ?Last Taken ?Type acetaminophen 325 mg capsule 650 mg PO Q6H PRN fever or pain 11/04/24 Unknown History acetaminophen 650 mg rectal 650 mg ID Q4H PRN fever or pain 11/04/24 Unknown History suppository aluminum-magnesium hydroxide 225 30 ml PO Q4H PRN PRN acid reflux 11/04/24 Unknown History mg-200 mg/5 mL oral suspension amlodipine 10 mg tablet 5 mg PO DAILY bp 11/04/24 Unknown History aspirin 81 mg capsule 81 mg PO DAILY blood thinner 11/04/24 Unknown History clopidogrel 75 mg tablet 75 mg PO DAILY Left internal 11/04/24 Unknown History carotid artery stenosis insulin glargine 100 unit/mL (3 18 unit subcut .HS dm 11/04/24 Unknown History mL) subcutaneous pen (Lantus Solostar U-100 Insulin) levetiracetam 500 mg tablet 500 mg PO BID seizures 11/04/24 Unknown History losartan 25 mg tablet 50 mg PO DAILY 11/04/24 Unknown History magnesium hydroxide 400 mg/5 mL 30 ml PO DAILY PRN constipation 11/04/24 Unknown History oral suspension (Milk of Magnesia) metoprolol tartrate 25 mg tablet 25 mg PO BID HTN 11/04/24 Unknown History omega-3 acid ethyl esters 1 gram 1 cap PO BID supplement 11/04/24 Unknown History capsule ondansetron 4 mg disintegrating 4 mg PO Q8H PRN nausea/vomiting 11/04/24 Unknown History tablet sertraline 25 mg tablet 25 mg PO DAILY depression 11/04/24 Unknown History sertraline 50 mg tablet 50 mg PO BID depression 11/04/24 Unknown History epoetin beta, methoxy peg 50 30 mcg IV QMONTH used for dialysis 01/31/25 Unknown History mcg/0.3 mL injection syringe (Mircera) iron sucrose 50 mg iron/2.5 mL 50 mg IV QWEEK dialysis 01/31/25 Unknown History intravenous solution metoclopramide HCl 5 mg tablet 10 mg PO .as directed nausea/ 01/31/25 Unknown History (Reglan) vomiting sevelamer carbonate 800 mg tablet 800 mg PO TID high BP 01/31/25 Unknown History sodium zirconium cyclosilicate 10 10 g PO .qweeksunday hypokalemia 01/31/25 01/30/25 History gram oral powder packet (Lokelma) vitamin B complex-vitamin C-folic 1 tab PO DAILY supplement 01/31/25 Unknown History acid 0.8 mg tablet (Katelynn-Tiago) sennosides 8.6 mg-docusate sodium 2 tab PO BID #0 tabs 02/02/25 Unknown Rx 50 mg tablet (Stimulant Laxative Plus) tizanidine 2 mg tablet 2 mg PO Q8 PRN muscle pain/spasm 02/02/25 Unknown Rx #0 tabs bisacodyl 10 mg rectal suppository 10 mg ID DAILY PRN constipation 02/08/25 Unknown History glucagon HCl 1 mg solution for 1 mg IM Q20M PRN hypoglycemia 02/08/25 Unknown History injection (Glucagon (HCl) Emergency Kit) guaifenesin 100 mg/5 mL oral liquid 200 mg PO Q4H PRN cough, congestion 02/08/25 Unknown History insulin lispro 100 unit/mL See Protocol subcut .before meals 02/08/25 Unknown History subcutaneous pen (Humalog KwikPen DM (U-100) Insulin) sodium phosphates 19 gram-7 118 ml ID DAILY PRN constipation 02/08/25 Unknown History gram/118 mL enema (Fleet Enema) sodium zirconium cyclosilicate 10 10 g PO .COMPLEX hyperkalemia 02/08/25 Unknown History gram oral powder packet (Lokelma) Allergy/AdvReac Type Severity Reaction Status Date / Time No Known Allergies Allergy Verified 02/08/25 00:27 Social History Smoking Status: Former smoker Physical Exam Const Negative for alert, oriented x3 or no apparent distress General Appearance: cooperative and comfortable Orientation / Consciousness: awake; Negative for oriented to person Extremity Extremity Narrative: His right hip is flexed and externally rotated with pillows surrounding him for comfort he does have positive logroll his compartments are soft and he is neurovascular intact right lower extremity Lab / Micro Data 02/08/25 04:31 02/08/25 04:31 Labs: Laboratory Results - last 24 hr 02/08/25 00:47: WBC 8.4, RBC 2.74 L, Hgb 9.0 L, Hct 27.6 L, MCV 100.7 H, MCH 32.8 H, MCHC 32.6, RDW Std Deviation 52.3 H, RDW Coeff of Corina 14.4, Plt Count 246, MPV 9.6, Immature Gran % (Auto) 0.500, Neut % (Auto) 54.6, Lymph % (Auto) 32.9, [place] % (Auto) 7.9, Eos % (Auto) 3.6, Baso % (Auto) 0.5, Absolute Neuts (auto) 4.6, Absolute Lymphs (auto) 2.76, Nucleated RBC % 0, Sodium 144, Potassium 3.9, Chloride 97 L, Carbon Dioxide 34.6 H, Anion Gap 12, BUN 31 H, Creatinine 4.38 H, Estim Creat Clear Calc 17.47 L, Est GFR (MDRD) Non-Af 14 L, BUN/Creatinine Ratio 7.1 L, Glucose 125 H, Calcium 8.8 02/08/25 04:31: WBC 7.5, RBC 2.40 L, Hgb 7.9 L, Hct 25.1 L, MCV 104.6 H, MCH 32.9 H, MCHC 31.5 L, RDW Std Deviation 54.5 H, RDW Coeff of Corina 14.4, Plt Count 249, MPV 10.0, Immature Gran % (Auto) 0.700, Neut % (Auto) 56.5, Lymph % (Auto) 31.6, [place] % (Auto) 6.8, Eos % (Auto) 3.7, Baso % (Auto) 0.7, Absolute Neuts (auto) 4.3, Absolute Lymphs (auto) 2.38, Nucleated RBC % 0, Sodium 144, Potassium 3.8, Chloride 98, Carbon Dioxide 32.8 H, Anion Gap 13, BUN 34 H, Creatinine 4.70 H, Estim Creat Clear Calc 16.76 L, Est GFR (MDRD) Non-Af 13 L, BUN/Creatinine Ratio 7.1 L, Glucose 123 H, Calcium 8.3 02/08/25 04:58: Blood Type A POSITIVE, Antibody Screen NEGATIVE 02/08/25 10:34: POC Glucose 118 H 02/08/25 15:55: POC Glucose 170 H Rhythm Strip Rhythm Strip: Sinus Rhythm Rate: 70 Ectopy: None Imaging Radiology Impression Hip/Pelvis X-Ray 02/08/25 00:32 IMPRESSION: Acute nondisplaced fracture of the right femoral neck. Reading Location: [place] [address] 02/08/25 01:05 IMPRESSION: No acute territorial cerebrovascular insult. If clinical symptoms persist, further evaluation with MRI may be considered as clinically warranted. No intracerebral or extra axial hemorrhage Bilateral cerebral chronic infarcts. Bilateral cerebral microvascular ischemic changes with brain involutional changes. No interval changes. Reading Location: [place] [address] Chest X-Ray 02/08/25 01:10 IMPRESSION: No evidence for acute abnormality. Reading Location: [facility]
[2025-02-09] VITALS (27 sets, daily range): BP systolic 115–226; BP diastolic 58–97; PULSE 59–88; RESP 14–20; TEMP 36.1–36.9; O2SAT 95–100; BMI 24.0; BMI 23.9
[2025-02-09 06:18] LABS: Hematocrit 26.1 % (40-54); Hemoglobin 8.4 g/dL (13.0-16.5); Immature Granulocytes Count 0.030 X10^3/uL (0.0-0.0); Mean Corp Hgb Conc 32.2 g/dL (32-36); Mean Corpuscular Volume 102.8 fL (80-94); Mean Platelet Vol. 10.0 fl (6.2-12.0); NRBC Flagged by Analyzer 0 % (0-5); Platelet Count 260 K/mm3 (150-450); RBC Distribution Width CV 14.1 % (11.6-14.6); RBC Distribution Width SD 52.9 fl (35.1-43.9); Red Blood Count 2.54 M/mm3 (4.6-6.2); White Blood Count 6.1 K/mm3 (4.4-11.0)
[2025-02-09 06:50] LABS: Anion Gap 15 (5-15); BUN 40 mg/dL (4-19); BUN/Creat Ratio 6.5 RATIO (10-20); Calcium,Total 8.6 mg/dL (7.6-11.0); Carbon Dioxide 27.4 mmol/L (21.0-32.0); Chloride 98 mmol/L (98-108); Estimated Creatinine Clearance 12.83 ml/min (50-250); Glucose 130 mg/dL (70-99); Potassium 4.2 mmol/L (3.3-5.1)
[2025-02-09] MEDS: PureFlow B 2K Dialysis Soln 1 BAG 6 BAG PF (07:48)
[2025-02-09] MEDS: 0.9% Normal Saline 1,000 ML IV.SOLN. 1000 ML OPERA.SITE (07:48)
[2025-02-09] MEDS: 0.9% Saline Lock 10 ML Syringe IV ×3 (09:00→16:14)
[2025-02-09] MEDS: HYDROmorphone 0.5 MG/0.5 ML SYRINGE IV (09:01)
--- NOTE | 2025-02-09 11:05 | PCM.PN.HOSP ---
Reason for Visit Chief Complaint: Fall with injury Subjective Subjective The patient evaluated at bedside this a.m. while on dialysis, denies any acute complaints, received meds recently for his pain Objective Data Objective Data Vital Signs: Vital Signs Temp Pulse Resp BP Pulse Ox O2 Del Method 97.8 F 88 16 139/75 H 97 Room Air 02/09/25 15:59 02/09/25 15:59 02/09/25 15:59 02/09/25 15:59 02/09/25 15:59 02/09/25 15:59 Oxygen Delivery Method Room Air Weight: 82.3 kg Body Mass Index (BMI) 24.0 Intake & Output: Intake and Output for Last 24 Hours 02/07/25 02/08/25 02/09/25 23:59 23:59 23:59 Intake Total 600 / 700 600 / 600 Output Total 200 / 200 990 / 990 Balance 400 / 500 -390 / -390 Lab / Micro Data 02/09/25 05:17 02/09/25 05:17 Labs: Laboratory Results - last 24 hr 02/08/25 04:58: Crossmatch See Detail 02/08/25 22:34: POC Glucose 154 H 02/09/25 05:17: WBC 6.1, RBC 2.54 L, Hgb 8.4 L, Hct 26.1 L, MCV 102.8 H, MCH 33.1 H, MCHC 32.2, RDW Std Deviation 52.9 H, RDW Coeff of Corina 14.1, Plt Count 260, MPV 10.0, Immature Gran % (Auto) 0.500, Neut % (Auto) 45.2 L, Lymph % (Auto) 38.8, [place] % (Auto) 9.2, Eos % (Auto) 5.6 H, Baso % (Auto) 0.7, Absolute Neuts (auto) 2.8, Absolute Lymphs (auto) 2.37, Nucleated RBC % 0, Sodium 141, Potassium 4.2, Chloride 98, Carbon Dioxide 27.4, Anion Gap 15, BUN 40 H, Creatinine 6.14 H, Estim Creat Clear Calc 12.83 L, Est GFR (MDRD) Non-Af 9 L, BUN/Creatinine Ratio 6.5 L, Glucose 130 H, Calcium 8.6 02/09/25 05:44: POC Glucose 136 H 02/09/25 11:01: POC Glucose 129 H 02/09/25 16:27: POC Glucose 174 H Radiography Diagnostic Testing: Radiology Impression Hip X-Ray 02/09/25 14:50 IMPRESSION: Status post right total hip replacement. There is good alignment. Postoperative soft tissue swelling. Reading Location: [facility] Rhythm Strip Rhythm Strip: Sinus Rhythm Rate: 70 Ectopy: None Physical Exam Narrative General: Alert, no acute distress HEENT: Atraumatic Eyes: extraocular movements grossly intact Neck: Supple Respiratory: normal respiratory effort Cardiovascular: no significant peripheral edema appreciated GI: nondistended Extremities: Extremity movement limited by pain due to fracture Neuro: No overt focal neurological deficits Psych: Cooperative Assessment & Plan Assessment/Plan (1) Fracture of femoral neck, right, closed: QUALIFIERS: Encounter type: initial encounter Qualified Code(s): S72.001A - Fracture of unspecified part of neck of right femur, initial encounter for closed fracture PLAN: Plan # Right femoral neck fracture - N.p.o. - Ortho consult - Supportive care/pain control -PT/OT/CM consults -02/09: Patient for surgery today with Dr. Monique #Type 2 diabetes mellitus -Glucose checks and sliding scale insulin - Long acting held, patient n.p.o. -02/09: Still n.p.o., surgery today # Chronic anemia -02/09: Hemoglobin 8.4 today, seems to be at baseline, discussed with Dr. Yoon given estimated blood loss with this baseline hemoglobin the unit will be sent down with patient for surgery preemptively to avoid significant postoperative anemia, check hemoglobin in the a.m. #Hypertension - Seem to be improving with pain control, continue to monitor, resume metoprolol, amlodipine, and losartan likely postoperatively as blood pressure tolerates - Will continue to monitor -02/09: Blood pressure was significantly elevated this morning with systolic at 200 but this improved with dialysis and with pain control, monitor blood pressure perioperatively and likely will be able to resume home medications #ESRD on HD -Consult nephrology -Renal diet when patient longer n.p.o. -Daily weights, I's and O's -02/09: Patient had dialysis presurgery, tolerated this well, discussed with nephrology Chronic medical problems and/or problems not being actively addressed during today's encounter: #Depression/anxiety -Continue home medications #Seizure disorder -Presently maintained on Keppra -Continue home regimen # History of left internal carotid artery stenosis - Resume antiplatelets when okay to do so by Ortho -Statin held, per chart review last time patient was here earlier this month did not want him to be on atorvastatin/receive atorvastatin, unclear reason for this #DVT ppx: SCDs Virginie Ely MD Charges/Coding Visit Charges Inpatient E&M: 63749 Subs Hosp L2
--- NOTE | 2025-02-09 12:10 | PCM.PRE.AN2 ---
ASA Classification* ASA Classification ASA Classification: 3 Assessment & Plan Anesthesia* Anesthesia Assessment Anesthesia Assessment: Discussed sedation and/or anesthesia options, risks, benefits, and alternatives with patient/parents/legal guardian/POA. Questions invited. The patient/parents/legal guardian/POA seems to understand and agrees to proceed with anesthesia plan. Reviewed the physical assessment, medical history, allergy history and patient home medications list prior to surgery/procedure/anesthetic and documented any changes. Performed airway and anesthesia risk assessments. Anesthesia Type Anesthesia Type: General History Source History Obtained from:: Patient and Chart Anesthesia Focused Assessment* Temperature: 97.0 F Pulse Rate: 82 Blood Pressure: 199/84 Respiratory Rate: 16 Pulse Ox: 96 Oxygen Delivery Method: Room Air Airway Assessment Mouth opens: >3 cm Mallampati Score: I Teeth Condition: Loose (Patient has several loose teeth on each side of his mouth. Poor dentition.) Neck Range of motion (ROM): Limited ROM (Somewhat Decreased) Labs Anesthesia Preop lab: CBC WBC, (4.4-11.0) 6.1 K/mm3 Today, 05:17 RBC, (4.6-6.2) 2.54 M/mm3 L Today, 05:17 Hgb, (13.0-16.5) 8.4 g/dL L Today, 05:17 Hct, (40-54) 26.1 % L Today, 05:17 Plt Count, (150-450) 260 K/mm3 Today, 05:17 CHEMISTRY Potassium, (3.3-5.1) 4.2 mmol/L Today, 05:17 Sodium, (133-145) 141 mmol/L Today, 05:17 Magnesium, (1.5-2.2) 2.6 mg/dL H 01/31/25, 09:58 Phosphorus, (2.7-4.5) 5.3 mg/dL H 12/14/24, 05:40 BUN, (4-19) 40 mg/dL H Today, 05:17 Creatinine, (0.70-1.20) 6.14 mg/dL H Today, 05:17 Glucose, (70-99) 130 mg/dL H Today, 05:17 POC Glucose, (74-106) 129 mg/dL H Today, 11:01 TSH, (0.300-4.200) 0.868 uIU/mL 02/01/25, 05:40 COAG Pre-Assessment Diagnosis/Proposed Procedure Planned Operative Procedure(s): Right hip hemiarthroplasty. 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 When Was Last Pacemaker Check QUESTION #4 FULL TEXT: You/Your Family Experience fever (hyperthermia) with Anesthesia Last Oral Intake Last Oral intake: Last Oral Intake NPO since 00:01 02/09/25 10:15 Meds taken in AM with sips of water? Meds patient instructed to take am of surgery PONV PONV - warp scouring vat tender: PONV - warp scouring vat tender Female HX of Motion Sickness HX of N/V After Surgery Non-Smoker Duration of Surgery greater than 60 minutes Number of Risk Factors PONV Score Height & Weight Height & Weight: Anesthesia: Height & Weight Height 6 ft 1 in 02/09/25 10:15 Weight: 82.3 kg 02/09/25 11:12 Body Mass Index (BMI) 24.0 02/09/25 11:12 Respiratory Assessment Respiratory Assessment - warp scouring vat tender: Respiratory Tract Infection Hx - warp scouring vat tender Hx Respiratory Tract Infection No 02/08/25 03:01 STOP Sleep Apnea STOP Sleep Apnea - warp scouring vat tender: STOP Sleep Apnea - warp scouring vat tender Hx Hypertension No 02/09/25 09:00 Hx Sleep Apnea No 02/08/25 03:18 CPAP No 01/31/25 13:25 BIPAP No 01/31/25 13:25 Do you snore loudly (louder No 02/08/25 03:18 than talking or can be heard Do you often feel tired/ No 02/08/25 03:18 fatigued/ sleepy during daytime? Has anyone observed you stop No 02/08/25 03:18 breathing during sleep? STOP Results Negative 02/08/25 03:18 QUESTION #5 FULL TEXT : Do you snore loudly (louder than talking or can be heard through closed doors)? Tobacco Use History Tobacco Use History - warp scouring vat tender: Tobacco Use History - warp scouring vat tender Tobacco Use Cigarettes,Cigars 02/02/25 10:00 Smoking Status Former smoker 02/08/25 03:18 Hx Tobacco Use No 02/08/25 03:18 Years Smoking Packs Smoked per Day Smoking Cessation Date was Yes - quit smoking within 15 02/08/25 03:18 within the last 15 years years Hx Smoking Cessation Date 03/24/19 02/08/25 03:18 Hx Smoking Cessation Counseling Hematologic Medial History Hematologic Hx - warp scouring vat tender: Hematologic Medical Hx - rn telephonic Hx of Blood Transfusion No 02/08/25 03:18 Hx of Transfusion in last 3 No 02/08/25 03:18 Months Date of Last Transfusion (if within last 3 months) Ever experience any problems No 02/08/25 03:18 with transfusion(s)? Specify any problems Hx of Preganancy in last 3 N/A 02/08/25 03:18 Months Nurse Filling Out Transfusion EVIZZO 02/08/25 03:18 & Questions: Date: 02/08/25 02/08/25 03:18 Time: 03:39 02/08/25 03:18 Patient unable to answer at this time (ie. confused, unrespo /Reproduction History /Reproductive History - warp scouring vat tender: /Reproductive Hx- warp scouring vat tender Hx Now No 02/08/25 03:01 Gestational Age (in weeks): EDC: Hx Hx Para Hx Section SAB No 02/08/25 03:01 Does the father of the baby or his family experience fever w Father of the baby Malignant Hypertension history comment Active Medications Active Medications: Current Medications Generic Name Dose Route Start Last Admin Trade Name Freq PRN Reason Stop Dose Admin Acetaminophen 1,000 mg 02/08/25 09:35 02/09/25 04:58 Acetaminophen 500 Mg Tablet PO Not Given Q8 LILLIAN Glucagon 1 mg 02/08/25 09:30 Glucagon 1 Mg/Ml Syringe IM X1 PRN Hypoglycemia Protocol Hemodialysis Solution 6 bag 02/09/25 07:15 02/09/25 07:48 Pureflow B 2k Dialysis Soln 1 Bag PF 02/09/25 19:09 6 bag UD LILLIAN Administration Protocol Hydralazine HCl 5 mg 02/09/25 09:05 02/09/25 09:57 Hydralazine 20 Mg/Ml Vial IV 5 mg Q4H PRN PRN Administration SBP >/=175 Protocol Hydromorphone HCl 0.5 mg 02/08/25 09:33 02/09/25 09:01 Hydromorphone 0.5 Mg/0.5 Ml Syringe IV 0.5 mg Q3H PRN PRN Administration Pain Score 6-10 Dextrose 250 mls @ 0 mls/hr 02/08/25 09:30 Dextrose 10%-Water IV .Q0M PRN HYPOGLYCEMIA Protocol As Directed Sodium Chloride 250 mls @ 15 mls/hr 02/08/25 10:19 IV .[id number] PRN Saline Flush Sodium Chloride 250 mls @ 15 mls/hr 02/08/25 10:19 IV .[id number] PRN Additional IVPB Infusion Insulin Human Lispro 0 unit 02/08/25 11:00 02/09/25 05:45 Insulin Lispro 100 Unit/Ml Insuln.Pen SC Not Given ACHS LILLIAN Protocol Levetiracetam 500 mg 02/08/25 10:00 02/08/25 20:17 Levetiracetam 500 Mg Tablet PO 500 mg BID LILLIAN Administration Ondansetron HCl 4 mg 02/08/25 03:26 Ondansetron 4 Mg/2 Ml Vial IV Q8H PRN PRN NAUSEA/VOMITING Oxycodone HCl 2.5 mg 02/08/25 09:33 Oxycodone 5 Mg Tablet PO Q4H PRN PRN Pain Score 4-10 Senna/Docusate Sodium 2 tablet 02/08/25 10:00 02/08/25 20:17 Senna/Docusate Sodium 1 Tablet PO 2 tablet BID LILLIAN Administration Sertraline HCl 25 mg 02/08/25 10:00 02/08/25 10:31 Sertraline 50 Mg Tablet PO 25 mg DAILY LILLIAN Administration Sertraline HCl 50 mg 02/08/25 10:00 02/08/25 22:39 Sertraline 50 Mg Tablet PO 50 mg BID LILLIAN Administration Sevelamer Carbonate 800 mg 02/08/25 11:00 02/09/25 04:59 Sevelamer Carbonate 800 Mg Tablet PO Not Given TIDAC LILLIAN Sodium Chloride 10 - 40 ml 02/08/25 10:19 02/09/25 09:00 0.9% Saline Lock 10 Ml Syringe IV 10 ml UD PRN Administration SALINE FLUSH Sodium Chloride 1,000 ml 02/09/25 07:10 02/09/25 07:48 0.9% Normal Saline 1,000 Ml Iv.Soln. OPERA.SITE 02/09/25 19:08 1,000 ml X1 LILLIAN Administration Sodium Chloride 200 ml 02/09/25 07:08 0.9% Normal Saline 1,000 Ml Iv.Soln. IV 02/09/25 19:08 X1 PRN to maintain SBP >90mmHg during Dialysis ON LICENSE OF [facility] Medical History Anemia Current use of insulin Dysphagia TIA (transient ischemic attack) Depression Psychosis Vascular dementia Type II diabetes mellitus End stage kidney disease Convulsion Hyperlipemia Legal blindness GERD (gastroesophageal reflux disease) Dependence on renal dialysis Weakness UTI (urinary tract infection) Home Medications ?Medication ?Instructions ?Recorded ?Last Taken ?Type acetaminophen 325 mg capsule 650 mg PO Q6H PRN fever or pain 11/04/24 Unknown History acetaminophen 650 mg rectal 650 mg CO Q4H PRN fever or pain 11/04/24 Unknown History suppository aluminum-magnesium hydroxide 225 30 ml PO Q4H PRN PRN acid reflux 11/04/24 Unknown History mg-200 mg/5 mL oral suspension amlodipine 10 mg tablet 5 mg PO DAILY bp 11/04/24 Unknown History aspirin 81 mg capsule 81 mg PO DAILY blood thinner 11/04/24 Unknown History clopidogrel 75 mg tablet 75 mg PO DAILY Left internal 11/04/24 Unknown History carotid artery stenosis insulin glargine 100 unit/mL (3 18 unit subcut .HS dm 11/04/24 Unknown History mL) subcutaneous pen (Lantus Solostar U-100 Insulin) levetiracetam 500 mg tablet 500 mg PO BID seizures 11/04/24 Unknown History losartan 25 mg tablet 50 mg PO DAILY 11/04/24 Unknown History magnesium hydroxide 400 mg/5 mL 30 ml PO DAILY PRN constipation 11/04/24 Unknown History oral suspension (Milk of Magnesia) metoprolol tartrate 25 mg tablet 25 mg PO BID HTN 11/04/24 Unknown History omega-3 acid ethyl esters 1 gram 1 cap PO BID supplement 11/04/24 Unknown History capsule ondansetron 4 mg disintegrating 4 mg PO Q8H PRN nausea/vomiting 11/04/24 Unknown History tablet sertraline 25 mg tablet 25 mg PO DAILY depression 11/04/24 Unknown History sertraline 50 mg tablet 50 mg PO BID depression 11/04/24 Unknown History epoetin beta, methoxy peg 50 30 mcg IV QMONTH used for dialysis 01/31/25 Unknown History mcg/0.3 mL injection syringe (Mircera) iron sucrose 50 mg iron/2.5 mL 50 mg IV QWEEK dialysis 01/31/25 Unknown History intravenous solution metoclopramide HCl 5 mg tablet 10 mg PO .as directed nausea/ 01/31/25 Unknown History (Reglan) vomiting sevelamer carbonate 800 mg tablet 800 mg PO TID high BP 01/31/25 Unknown History sodium zirconium cyclosilicate 10 10 g PO .qweeksunday hypokalemia 01/31/25 01/30/25 History gram oral powder packet ([facility]) vitamin B complex-vitamin C-folic 1 tab PO DAILY supplement 01/31/25 Unknown History acid 0.8 mg tablet (Katelynn-Tiago) sennosides 8.6 mg-docusate sodium 2 tab PO BID #0 tabs 02/02/25 Unknown Rx 50 mg tablet (Stimulant Laxative Plus) tizanidine 2 mg tablet 2 mg PO Q8 PRN muscle pain/spasm 02/02/25 Unknown Rx #0 tabs bisacodyl 10 mg rectal suppository 10 mg CO DAILY PRN constipation 02/08/25 Unknown History glucagon HCl 1 mg solution for 1 mg IM Q20M PRN hypoglycemia 02/08/25 Unknown History injection (Glucagon (HCl) Emergency Kit) guaifenesin 100 mg/5 mL oral liquid 200 mg PO Q4H PRN cough, congestion 02/08/25 Unknown History insulin lispro 100 unit/mL See Protocol subcut .before meals 02/08/25 Unknown History subcutaneous pen (Humalog KwikPen DM (U-100) Insulin) sodium phosphates 19 gram-7 118 ml CO DAILY PRN constipation 02/08/25 Unknown History gram/118 mL enema (Fleet Enema) sodium zirconium cyclosilicate 10 10 g PO .COMPLEX hyperkalemia 02/08/25 Unknown History gram oral powder packet (Lokelma) Allergy/AdvReac Type Severity Reaction Status Date / Time No Known Allergies Allergy Verified 02/08/25 00:27 Surgical History (Updated 02/09/25 @ 12:[address] Jerry Larios MD) S/P arteriovenous (AV) graft placement Social History Smoking Status: Former smoker Review of Systems (Anesthesia) ROS Narrative System reviewed and no additional complaints, except as documented.
--- NOTE | 2025-02-09 12:30 | FEM_PTH ---
PATIENT: LEONARDO RUELAS LOC: MS3 U#:[id number] AGE/SX: 69/M ROOM: [facility] [place] RE02/08/[address]: Dr. Virginie Ely MD : 1955 BED: 1 DIS: 02/11/2025 SPEC #: [id number] RECD: 02/09/25 14:56 STATUS: DARION REQ #: [id number] BEATRICE: 02/09/25 12:[address]: Virginie Ely DEPT: SURGICAL PATHOLOGY RECD BY: Miguel Payton ENTERED: 02/10/25 10:01 SP TYPE: FEM HEAD OTHR DR: DO Dr. Marina Marie MD Dr. Paul Nielsen, MD No Primary Care Phys Tissues: A - Femoral region, NOS Procedures: Decalcification bone/plaque Surgery Specimen Level III HEADER OPERATION: Hemiarthroplasty, hip PRE-OP DIAGNOSIS: Fracture of femoral neck, right, closed TISSUE SUBMITTED: A- Right hip bone and tissue MICROSCOPIC DIAGNOSIS A. Bone, hip, right, hemiarthroplasty: * Disrupted bone trabeculae with hemorrhage consistent with fracture * Trilineage hematopoiesis MICROSCOPIC DESCRIPTION Slides are reviewed. GROSS DESCRIPTION A. Received in formalin labeled with the patient's name and date of . Designated as right hip bone and tissue is a 4.8 x 4.8 x 3.9 cm ovoid femoral head and a 6.9 x 6.3 x 2.0 cm aggregate of fragmented bone and femoral neck. There is a small portion of attached femoral neck, 1.5 cm in length by 3.1 cm in diameter. The resection margin is jagged and congested. The articular cartilage is wharton and somewhat dull with focal, possible osteophyte formation. No definitive areas of eburnation are grossly identified. Sectioning reveals yellow-red focally soft, trabeculated medullary bone. Abap Developer sections are submitted in 2 cassettes, following decalcification as follows: A1: Femoral headA2: Femoral neck PA 02/10/2025 CPT:19402,37483
[2025-02-09] MEDS: 0.9% Normal Saline (1000mL) 500 ML IV (12:40)
[2025-02-09] MEDS: Lidocaine 1% (5 ml sdv) 5 ML Vial IV (12:45)
[2025-02-09] MEDS: Cefazolin 1 GM/5 ML Vial 2 GM IV (12:55)
[2025-02-09] MEDS: fentaNYL 100 MCG/2 ML Ampul IV (13:10)
--- NOTE | 2025-02-09 14:40 | OP.PCM_ITS ---
Operative Report (Standard) Operative Information Date of Procedure: 02/09/25 Pre-Operative Diagnosis: Right hip femoral neck fracture Post-Operative Diagnosis: Same Surgery/Procedure Performed: Right hip hemiarthroplasty full stack software engineer: Joanne Single Pointed Operator: Malu Tasks completed by neurology physician assistant: Opening & closing and Implanting device Type of Anesthesia: General RN Documented Start/Stop Times: Operation Date: 02/09/25 12:30 Case Time Into Pre-Op 02/09/25 11:25 Anesthesia Start 02/09/25 12:40 Into Room 02/09/25 12:40 Procedure Start 02/09/25 13:13 Procedure End 02/09/25 14:28 Anesthesia End 02/09/25 14:34 Out of Room 02/09/25 14:34 Procedure Start Time: 13:13 Procedure Stop Time: 14:28 Select all DRAINS/GRAFTS/IMPLANTS that apply: Prosthetic device Prosthetic device details: Register Estimated Blood Loss: 200 Specimen collected: Yes Description of specimen(s) removed: Femoral head Description of surgery: Preoperative diagnosis: Right hip femoral neck fracture displaced Postoperative diagnosis: Same Procedure: Right hip hemiarthroplasty Implants: Register Accolade II stem size 5 132 degree neck angle +4 neck length 52 mm outer diameter bipolar head Anesthesia: General l EBL: 200 cc Complications: None Condition: Stable to PACU Indication for procedure: This is a 69-year-old male with multiple medical condition including dementia end-stage renal dialysis history of stroke had a ground-level fall x 2 over the past week complaining of hip pain x-rays demonstrated nondisplaced right femoral neck fracture. plans for definitive hemiarthroplasty were discussed including risks benefits and alternatives of the procedure were reviewed with the patient including risk of bleeding infection nerve artery tissue damage need for further surgery continue pain postoperative hip precaution restrictions leg length discrepancy and dislocation. Procedure: Patient was met in the preoperative holding area once again the operative extremity was identified by both patient and physician and was marked. Patient was met by anesthesia and brought to the operating room where anesthesia was started . The patient was then positioned in the lateral decubitus position on a well-padded pegboard with an axillary roll. All bony prominences were checked and padded. The patient was prepped and draped in the usual sterile fashion. A timeout was called to ensure the proper patient procedure and extremity were being contemplated. Anatomic landmarks were palpated and marked for a standard posterior lateral approach. A timeout was called to ensure the proper patient procedure and extremity were being contemplated. A 10 blade scalpel was used to make a posterior incision through the skin and subcutaneous tissue. In retractors were used and electrocautery was used to maintain meticulous hemostasis and dissect full-thickness flaps until the gluteal fascia was reached. The gluteal fascia was incised in line with the gluteal fibers. The bursal tissue was then freed from the underside and a Charnley retractor was placed. The fatpad was elevated off of the external rotators with electrocautery and the external rotators were dissected off of the greater trochanter including the piriformis and were tagged with #1 Ethibond for later repair. The joint capsule opened with posterior trapdoor technique. A femoral neck cutting guide was used to lexy the neck with a Bovie and an oscillating saw was used to complete the femoral neck cut. the fracture was visualized and with the use of a corkscrew and a skid the femoral head was removed and sized. We then trialed with the matching sizes . Hohmann was placed around the lesser trochanter. A femoral elevator was used. As well as a pointed wide Hohmann around the lesser trochanter and a Hohmann to help retract the gluteus medius. A box chisel was used to remove excess lateral neck followed by a canal finder and a lateralizing reamer. This was followed by sequential broaches. Attention was made of the version within the canal. Once the final broach was seated we then trialed and reduced the hip it was determined that a 132 degree neck angle with a +4 neck length was the appropriate size. We then checked stability with shuck testing as well as flexion and interminal rotation then proceeded with hip extension and checked leg lengths at the knees and heels. At this point trials were removed. The femoral stem was inserted. We re-trialed and then proceeded to impact the femoral head onto the Alvaro taper. We then surgically reduce the hip check stability again and leg lengths and were satisfied. irricept rinse was allowed to sit for 1 minutes while everyone changed their gloves. Thorough irrigation was performed. Followed by closure of the external rotators with #2 FiberWire followed by closure of gluteal fascia with #1 Ethibond. 0 Vicryl fat stitches and 2-0 Vicryl subcutaneous stitches and ilana in the skin. Dressing was applied in the form of silverlon dressing and an abduction pillow was placed. Patient tolerated the procedure well there was no intraoperative complications all counts were correct and the patient was brought back to the PACU in stable condition Surgical Findings: As above Complications Complications: No
--- NOTE | 2025-02-09 14:42 | PCM.POST.ANE ---
Anesthesia: Postop Eval I Current Vital Signs Temperature: 97.0 F Pulse Rate: 85 Blood Pressure: 179/76 Respiratory Rate: 20 Pulse Ox: 100 Oxygen Delivery Method: Room Air Assessment Airway patent: Yes Spontaneous unlabored respirations: Yes Mental status: Awake and Calm nausea: No Vomiting: No Anesthesia Complication: No Fluid Hydration Crystalloid volume administer (ml): 400 Total IV fluid infused: 400 Progress Note Anesthesia document: Postop Eval 1 completed: Yes
--- NOTE | 2025-02-09 14:50 | RAD_ITS ---
PROCEDURE: HIP MIN 2 VIEWS (PORTABLE) 02/09/2025 REASON FOR EXAM: POST OP TECHNIQUE: Procedure Code: RADH_P Modality: DX Procedure: HIP MIN 2 VIEWS (PORTABLE) Laterality: Right hip. COMPARISON: Prior study dated February 08, 2025. FINDINGS: The patient is status post right total hip replacement. There is good alignment. Postoperative soft tissue changes. RAD/Hip Min 2 Views (Portable) IMPRESSION: Status post right total hip replacement. There is good alignment. Postoperative soft tissue swelling. Reading Location: [id number]
--- NOTE | 2025-02-09 15:58 | CASEMGMT ---
Discharge Planning Updates sent via [facility] to [facility]. Duyen Bright DC Planning Asst.
[2025-02-09] MEDS: Lactated Ringers 1,000 ML 125 ML IV (16:07)
[2025-02-09] MEDS: SEVELAMER CARBONATE 800 MG TABLET PO (16:29)
--- NOTE | 2025-02-09 16:41 | POSTOPAN2_ITS ---
Anesthesia Postop Eval I Sum Postop Eval Completion status Anesthesia document: Postop Eval 1 completed: Yes Anesthesia Postop Eval I Summary Anesthesia Postop Eval I Summary: Anesthesia Postop Eval I: Assessment Summary Airway patent Yes 02/09/25 14:43 [email or web address] Spontaneous unlabored Yes 02/09/25 14:43 [email or web address] respirations Mental status Awake,Calm 02/09/25 14:43 [email or web address] nausea No 02/09/25 14:43 ENVIRONMENTAL [email or web address] Vomiting No 02/09/25 14:43 [email or web address] Anesthesia Postop Eval I: Fluid Summary Crystalloid volume administer 400 02/09/25 14:43 [email or web address] [email or web address] (ml) Colloids volume administered ( ml) Blood Product volume administered (ml) Total IV fluid infused 400 02/09/25 14:43 ENVIRONMENTAL [email or web address] Anesthesia Postop Eval I: Summary Notes Anesthesia Complication No 02/09/25 14:43 [email or web address] Anesthesia Complication Comment: Post-operative progress note Anesthesia: Postop Eval II Evaluation Mental status: Awake and Calm Pain Level: 2 nausea: No Vomiting: No
--- NOTE | 2025-02-09 16:41 | PCM.POSTANE2 ---
Anesthesia Postop Eval I Sum Postop Eval Completion status Anesthesia document: Postop Eval 1 completed: Yes Anesthesia Postop Eval I Summary Anesthesia Postop Eval I Summary: Anesthesia Postop Eval I: Assessment Summary Airway patent Yes 02/09/25 14:43 COMMUNITY [email or web address] Spontaneous unlabored Yes 02/09/25 14:43 COMMUNITY [email or web address] respirations Mental status Awake,Calm 02/09/25 14:43 COMMUNITY [email or web address] nausea No 02/09/25 14:43 COMMUNITY [email or web address] Vomiting No 02/09/25 14:43 COMMUNITY [email or web address] Anesthesia Postop Eval I: Fluid Summary Crystalloid volume administer 400 02/09/25 14:43 COMMUNITY [email or web address] (ml) Colloids volume administered ( ml) Blood Product volume administered (ml) Total IV fluid infused 400 02/09/25 14:43 COMMUNITY [email or web address] Anesthesia Postop Eval I: Summary Notes Anesthesia Complication No 02/09/25 14:43 COMMUNITY [email or web address] Anesthesia Complication Comment: Post-operative progress note Anesthesia: Postop Eval II Evaluation Mental status: Awake and Calm Pain Level: 2 nausea: No Vomiting: No
[2025-02-09] MEDS: Senna/Docusate Sodium 1 Tablet 2 TABLET PO (21:20)
[2025-02-09] MEDS: Cefazolin 2 GM in 0.9% Normal Saline (100mL Bag) 100 ML IV (21:25)
[2025-02-10] VITALS (8 sets, daily range): BP systolic 145–180; BP diastolic 66–88; PULSE 80–98; RESP 16–20; TEMP 36.6–37.1; O2SAT 92–99; BMI 24.0
[2025-02-10] MEDS: Lactated Ringers 1,000 ML 125 ML IV (00:28)
[2025-02-10] MEDS: Cefazolin 2 GM in 0.9% Normal Saline (100mL Bag) 100 ML IV (05:59)
[2025-02-10 07:10] LABS: Hematocrit 24.9 % (40-54); Hemoglobin 8.1 g/dL (13.0-16.5); Immature Granulocytes Count 0.030 X10^3/uL (0.0-0.0); Mean Corp Hgb Conc 32.5 g/dL (32-36); Mean Corpuscular Volume 98.4 fL (80-94); Mean Platelet Vol. 10.0 fl (6.2-12.0); NRBC Flagged by Analyzer 0 % (0-5); Platelet Count 263 K/mm3 (150-450); RBC Distribution Width CV 15.8 % (11.6-14.6); RBC Distribution Width SD 57.1 fl (35.1-43.9); Red Blood Count 2.53 M/mm3 (4.6-6.2); White Blood Count 7.7 K/mm3 (4.4-11.0)
[2025-02-10 07:34] LABS: Anion Gap 14 (5-15); BUN 35 mg/dL (4-19); BUN/Creat Ratio 6.2 RATIO (10-20); Calcium,Total 8.4 mg/dL (7.6-11.0); Carbon Dioxide 24.6 mmol/L (21.0-32.0); Chloride 100 mmol/L (98-108); Estimated Creatinine Clearance 13.99 ml/min (50-250); Glucose 178 mg/dL (70-99); Potassium 4.0 mmol/L (3.3-5.1)
[2025-02-10] MEDS: SEVELAMER CARBONATE 800 MG TABLET PO ×3 (08:57→16:09)
[2025-02-10] MEDS: Cholecalciferol (VIT D3) 25 MCG TABLET (1,000 UNITS) PO (09:25)
[2025-02-10] MEDS: Senna/Docusate Sodium 1 Tablet 2 TABLET PO ×2 (09:25→23:22)
[2025-02-10] MEDS: HYDROmorphone 0.5 MG/0.5 ML SYRINGE IV ×2 (09:25→16:09)
[2025-02-10] MEDS: APIXABAN 2.5 MG TABLET (WCH) PO ×2 (09:25→23:22)
--- NOTE | 2025-02-10 10:15 | PCM.CONS.R ---
Assessment & Plan Assessment/Plan (1) ESRD on hemodialysis: (2) Fracture of femoral neck, right, closed: QUALIFIERS: Encounter type: initial encounter Qualified Code(s): S72.001A - Fracture of unspecified part of neck of right femur, initial encounter for closed fracture PLAN: Plan This is a 69-year-old male with past medical history significant for ESRD who currently dialyzes at [facility] Friday admitted for right hip fracture. Patient underwent right hip surgery yesterday. He also had dialysis yesterday with around 600 mL fluid removal. Blood pressures were elevated yesterday, but have overall improved. No acute indication for CONSULTANT NURSE today. Next dialysis will be tomorrow. Patient has history of anemia of chronic disease, hemoglobin 9 on admission, today's hemoglobin is 8.1. Will follow hemoglobin trends. Patient does receive long-acting AAMDO and IV venofer at the kidney center. Thank you for allowing us to participate in the care of Mr. Arredondo, assessment and plan reviewed with Dr. Odonnell. HPI Consult Data Date of Consult: 02/10/25 HPI Narrative HPI Narrative: LEONARDO ARREDONDO, is a 69 M who was brought to the emergency room on February 08 after patient sustained a fall. Patient was found to have right hip fracture and was admitted for further evaluation and treatment. Patient underwent hip surgery yesterday. Nephrology consulted as patient has history of ESRD and for dialysis management. Patient underwent hemodialysis yesterday. He tolerated about 600 mL fluid removal with treatment. This morning patient states pain is minimal, otherwise has no complaints. [facility] Medical History (Updated 02/10/25 @ 00:01 by Background Daraciel) Anemia Current use of insulin Dysphagia TIA (transient ischemic attack) Depression Psychosis Vascular dementia Type II diabetes mellitus End stage kidney disease Convulsion Hyperlipemia Legal blindness GERD (gastroesophageal reflux disease) Dependence on renal dialysis Weakness UTI (urinary tract infection) Home Medications ?Medication ?Instructions ?Recorded ?Last Taken ?Type acetaminophen 325 mg capsule 650 mg PO Q6H PRN fever or pain 11/04/24 Unknown History acetaminophen 650 mg rectal 650 mg ME Q4H PRN fever or pain 11/04/24 Unknown History suppository aluminum-magnesium hydroxide 225 30 ml PO Q4H PRN PRN acid reflux 11/04/24 Unknown History mg-200 mg/5 mL oral suspension amlodipine 10 mg tablet 5 mg PO DAILY bp 11/04/24 Unknown History aspirin 81 mg capsule 81 mg PO DAILY blood thinner 11/04/24 Unknown History clopidogrel 75 mg tablet 75 mg PO DAILY Left internal 11/04/24 Unknown History carotid artery stenosis insulin glargine 100 unit/mL (3 18 unit subcut .HS dm 11/04/24 Unknown History mL) subcutaneous pen (Lantus Solostar U-100 Insulin) levetiracetam 500 mg tablet 500 mg PO BID seizures 11/04/24 Unknown History losartan 25 mg tablet 50 mg PO DAILY 11/04/24 Unknown History magnesium hydroxide 400 mg/5 mL 30 ml PO DAILY PRN constipation 11/04/24 Unknown History oral suspension (Milk of Magnesia) metoprolol tartrate 25 mg tablet 25 mg PO BID HTN 11/04/24 Unknown History omega-3 acid ethyl esters 1 gram 1 cap PO BID supplement 11/04/24 Unknown History capsule ondansetron 4 mg disintegrating 4 mg PO Q8H PRN nausea/vomiting 11/04/24 Unknown History tablet sertraline 25 mg tablet 25 mg PO DAILY depression 11/04/24 Unknown History sertraline 50 mg tablet 50 mg PO BID depression 11/04/24 Unknown History epoetin beta, methoxy peg 50 30 mcg IV QMONTH used for dialysis 01/31/25 Unknown History mcg/0.3 mL injection syringe (Mircera) iron sucrose 50 mg iron/2.5 mL 50 mg IV QWEEK dialysis 01/31/25 Unknown History intravenous solution metoclopramide HCl 5 mg tablet 10 mg PO .as directed nausea/ 01/31/25 Unknown History (Reglan) vomiting sevelamer carbonate 800 mg tablet 800 mg PO TID high BP 01/31/25 Unknown History sodium zirconium cyclosilicate 10 10 g PO .qweeksunday hypokalemia 01/31/25 01/30/25 History gram oral powder packet (Lokelma) vitamin B complex-vitamin C-folic 1 tab PO DAILY supplement 01/31/25 Unknown History acid 0.8 mg tablet (Katelynn-Tiago) sennosides 8.6 mg-docusate sodium 2 tab PO BID #0 tabs 02/02/25 Unknown Rx 50 mg tablet (Stimulant Laxative Plus) tizanidine 2 mg tablet 2 mg PO Q8 PRN muscle pain/spasm 02/02/25 Unknown Rx #0 tabs bisacodyl 10 mg rectal suppository 10 mg ME DAILY PRN constipation 02/08/25 Unknown History glucagon HCl 1 mg solution for 1 mg IM Q20M PRN hypoglycemia 02/08/25 Unknown History injection (Glucagon (HCl) Emergency Kit) guaifenesin 100 mg/5 mL oral liquid 200 mg PO Q4H PRN cough, congestion 02/08/25 Unknown History insulin lispro 100 unit/mL See Protocol subcut .before meals 02/08/25 Unknown History subcutaneous pen (Humalog KwikPen DM (U-100) Insulin) sodium phosphates 19 gram-7 118 ml ME DAILY PRN constipation 02/08/25 Unknown History gram/118 mL enema (Fleet Enema) sodium zirconium cyclosilicate 10 10 g PO .COMPLEX hyperkalemia 02/08/25 Unknown History gram oral powder packet (Lokelma) Allergy/AdvReac Type Severity Reaction Status Date / Time No Known Allergies Allergy Verified 02/08/25 00:27 Surgical History (Updated 02/09/25 @ 12:[address] Jerry Larios MD) S/P arteriovenous (AV) graft placement Social History Smoking Status: Former smoker ROS ROS Narrative limited due to history of dementia Physical Exam Narrative Alert, no apparent distress S1, S2, RRR Lungs sound clear anteriorly and posteriorly. On room air Abdomen soft, nontender No edema AV fistula left upper arm positive thrill and bruit Lab / Micro Data 02/10/25 06:34 02/10/25 06:34 Labs: Laboratory Results - last 24 hr 02/08/25 04:58: Crossmatch See Detail 02/09/25 11:01: POC Glucose 129 H 02/09/25 16:27: POC Glucose 174 H 02/09/25 21:30: POC Glucose 164 H 02/10/25 06:34: WBC 7.7, RBC 2.53 L, Hgb 8.1 L, Hct 24.9 L, MCV 98.4 H, MCH 32.0, MCHC 32.5, RDW Std Deviation 57.1 H, RDW Coeff of Corina 15.8 H, Plt Count 263, MPV 10.0, Immature Gran % (Auto) 0.400, Neut % (Auto) 63.7, Lymph % (Auto) 22.7, [place] % (Auto) 10.8 H, Eos % (Auto) 2.1, Baso % (Auto) 0.3, Absolute Neuts (auto) 4.9, Absolute Lymphs (auto) 1.74, Nucleated RBC % 0, Sodium 139, Potassium 4.0, Chloride 100, Carbon Dioxide 24.6, Anion Gap 14, BUN 35 H, Creatinine 5.63 H, Estim Creat Clear Calc 13.99 L, Est GFR (MDRD) Non-Af 10 L, BUN/Creatinine Ratio 6.2 L, Glucose 178 H, Calcium 8.4 02/10/25 07:34: POC Glucose 170 H Rhythm Strip Rhythm Strip: Sinus Rhythm Rate: 70 Ectopy: None Imaging Radiology Impression Hip X-Ray 02/09/25 14:50 IMPRESSION: Status post right total hip replacement. There is good alignment. Postoperative soft tissue swelling. Reading Location: [id number]
--- NOTE | 2025-02-10 10:35 | CASEMGMT ---
Discharge Planning Updates sent via [facility] to [facility] so that they can submit for precert. They are aware that pt will return today as a bedhold. Duyen Bright DC Planning Asst.
--- NOTE | 2025-02-10 11:36 | PN.ORTHO_ITS ---
Subjective Subjective Foster is a 69-year-old gentleman post op day 1 right hip hemiarthroplasty per Dr. Monique status post fall with femoral neck fracture. Patient is lying in bed in no acute distress. Patient reports he does have pain at the right hip, last used ice sometime ago, patient is forgetful. States he is eating and drinking well. Reports he does not want to move his leg secondary to pain. Objective Data Objective Data H&H near baseline, being followed by house medicine Last hemodialysis yesterday, typical 3 times weekly Vital Signs: Vital Signs Temp Pulse Resp BP Pulse Ox O2 Del Method 97.9 F 80 18 145/69 H 94 Room Air 02/10/25 11:00 02/10/25 11:00 02/10/25 11:00 02/10/25 11:00 02/10/25 11:00 02/10/25 11:00 Oxygen Delivery Method Room Air Weight: 181 lb 7.047 oz Body Mass Index (BMI) 24.0 Intake & Output: Intake and Output for Last 24 Hours 02/08/25 02/09/25 02/10/25 23:59 23:59 23:59 Intake Total 600 / 700 710 / 810 2285 / 2285 Output Total 200 / 200 990 / 1040 350 / 350 Balance 400 / 500 -280 / -230 1935 / 1935 Lab / Micro Data Attestation: I reviewed the patient's lab results. 02/10/25 06:34 02/10/25 06:34 Labs: Laboratory Results - last 24 hr 02/08/25 04:58: Crossmatch See Detail 02/09/25 16:27: POC Glucose 174 H 02/09/25 21:30: POC Glucose 164 H 02/10/25 06:34: WBC 7.7, RBC 2.53 L, Hgb 8.1 L, Hct 24.9 L, MCV 98.4 H, MCH 32.0, MCHC 32.5, RDW Std Deviation 57.1 H, RDW Coeff of Corina 15.8 H, Plt Count 263, MPV 10.0, Immature Gran % (Auto) 0.400, Neut % (Auto) 63.7, Lymph % (Auto) 22.7, [place] % (Auto) 10.8 H, Eos % (Auto) 2.1, Baso % (Auto) 0.3, Absolute Neuts (auto) 4.9, Absolute Lymphs (auto) 1.74, Nucleated RBC % 0, Sodium 139, Potassium 4.0, Chloride 100, Carbon Dioxide 24.6, Anion Gap 14, BUN 35 H, C reatinine 5.63 H, Estim Creat Clear Calc 13.99 L, Est GFR (MDRD) Non-Af 10 L, B UN/Creatinine Ratio 6.2 L, Glucose 178 H, Calcium 8.4 02/10/25 07:34: POC Glucose 170 H Radiography Diagnostic Testing: Radiology Impression Hip X-Ray 02/09/25 14:50 IMPRESSION: Status post right total hip replacement. There is good alignment. Postoperative soft tissue swelling. Reading Location: [id number] Rhythm Strip Rhythm Strip: Sinus Rhythm Rate: 70 Ectopy: None Physical Exam Const alert, no apparent distress and well nourished Constitutional Narrative: Oriented x 2 (self and place). Forgetful of date, last dialysis and timing of hip fx and surgery. General Appearance: cooperative HEENT normocephalic Resp normal respiratory effort Right Hip Date of injury: 02/08/25 Date of Surgery: 02/09/25 Skin: Yes CDI Contralateral Normal: Yes HIP: Skin is pink, warm, dry and intact. There is no ecchymosis or skin discoloration present. There is mild swelling of the right thigh noted. ROM: Reluctant to move for ROM testing, calls out with PROM of approximately 5 degrees flexion and external rotation Tenderness: Tender over lateral hip, anterior thigh Bilateral lower legs are soft, easily fully compressible, negative Homans Tests: Logroll: Patient declines to attempt Gait: Not assessed Distal motor or sensory intact with brisk cap refill at 2 seconds, easily palpable pedal pulse present at +2 Assessment & Plan Assessment/Plan (1) Status post hemiarthroplasty of right hip: PLAN: Continue pain control as ordered, ice to right hip (applied during today's visit) Continue with PT/OT Reviewed hip precautions during today's visit, abductor pillow in place Reviewed wound care to report any increase in pain, drainage to use surgical bandage, redness, streaking, fever or chills Reviewed nursing and social work notes, okay to begin DC planning per house medicine Plan follow-up in 2 weeks with Ortho for staple removal This document has been transcribed using [employer] dictation software. There may be incorrect words, spelling, and punctuation. (2) Traumatic closed nondisplaced fracture of neck of right femur: QUALIFIERS: Encounter type: subsequent encounter Fracture healing: with routine healing Qualified Code(s): S72.001D - Fracture of unspecified part of neck of right femur, subsequent encounter for closed fracture with routine healing
--- NOTE | 2025-02-10 15:58 | CASEMGMT ---
Social Work Per physician, pt is not ready for discharge today. Precert has been started at [facility] but pt can return at any time and does not need to await precert. Pt likely ready for dc tomorrow. DC research study assistant updatd and to notify [facility] of dc plan. Plan: Return to [facility], when medically ready JOSE J Andrew
[2025-02-10] MEDS: 0.9% Saline Lock 10 ML Syringe IV ×2 (16:09→23:22)
--- NOTE | 2025-02-10 17:23 | PCM.PN.HOSP ---
Reason for Visit Chief Complaint: Fall with injury Subjective Subjective Patient laying comfortably in bed, reports some pain in his belly and said it was painful when I was palpating however when palpating with stethoscope did not seem to be in any distress, denied any other acute complaints Objective Data Objective Data Vital Signs: Vital Signs Temp Pulse Resp BP Pulse Ox O2 Del Method 98.6 F 84 16 161/88 H 98 Room Air 02/10/25 15:36 02/10/25 15:36 02/10/25 15:36 02/10/25 15:36 02/10/25 15:36 02/10/25 15:36 Oxygen Delivery Method Room Air Weight: 82.3 kg Body Mass Index (BMI) 24.0 Intake & Output: Intake and Output for Last 24 Hours 02/08/25 02/09/25 02/10/25 23:59 23:59 23:59 Intake Total 600 / 700 710 / 810 2835 / 2835 Output Total 200 / 200 990 / 1040 550 / 550 Balance 400 / 500 -280 / -230 2285 / 2285 Lab / Micro Data 02/10/25 06:34 02/10/25 06:34 Labs: Laboratory Results - last 24 hr 02/09/25 21:30: POC Glucose 164 H 02/10/25 06:34: WBC 7.7, RBC 2.53 L, Hgb 8.1 L, Hct 24.9 L, MCV 98.4 H, MCH 32.0, MCHC 32.5, RDW Std Deviation 57.1 H, RDW Coeff of Corina 15.8 H, Plt Count 263, MPV 10.0, Immature Gran % (Auto) 0.400, Neut % (Auto) 63.7, Lymph % (Auto) 22.7, [place] % (Auto) 10.8 H, Eos % (Auto) 2.1, Baso % (Auto) 0.3, Absolute Neuts (auto) 4.9, Absolute Lymphs (auto) 1.74, Nucleated RBC % 0, Sodium 139, Potassium 4.0, Chloride 100, Carbon Dioxide 24.6, Anion Gap 14, BUN 35 H, Creatinine 5.63 H, Estim Creat Clear Calc 13.99 L, Est GFR (MDRD) Non-Af 10 L, BUN/Creatinine Ratio 6.2 L, Glucose 178 H, Calcium 8.4 02/10/25 07:34: POC Glucose 170 H 02/10/25 11:21: POC Glucose 167 H 02/10/25 16:05: POC Glucose 203 H Rhythm Strip Rhythm Strip: Sinus Rhythm Rate: 70 Ectopy: None Physical Exam Narrative General: Alert, no acute distress HEENT: Atraumatic Eyes: Spontaneous opening Neck: Supple Respiratory: normal respiratory effort Cardiovascular: no significant peripheral edema appreciated GI: nondistended once that her inconsistently in different spots when palpating his abdomen but when palpating with stethoscope no complaints or acute distress Extremities: Extremity movement limited by pain due to postsurgery Neuro: No overt focal neurological deficits Psych: Cooperative Assessment & Plan Assessment/Plan (1) Fracture of femoral neck, right, closed: QUALIFIERS: Encounter type: initial encounter Qualified Code(s): S72.001A - Fracture of unspecified part of neck of right femur, initial encounter for closed fracture PLAN: Plan # Right femoral neck fracture - N.p.o. - Ortho consult - Supportive care/pain control -PT/OT/CM consults -02/09: Patient for surgery today with Dr. Monique -02/10: Patient postsurgery, PT/OT, plan is for patient to go back to [facility]. Ortho wants patient to receive third dose of cefazolin before transfer/discharge, this will be tomorrow after dialysis and then patient will go back to [facility]. Plan is for 3 weeks of Eliquis then back to patient's Plavix and following up with Ortho in 2 weeks. Patient on scheduled bowel regimen #Type 2 diabetes mellitus -Glucose checks and sliding scale insulin - Long acting held, patient n.p.o. -02/09: Still n.p.o., surgery today -02/10: Diet resumed, sliding scale insulin. Will resume glargine at lower dose and can uptitrate as tolerated # Chronic anemia -02/09: Hemoglobin 8.4 today, seems to be at baseline, discussed with Dr. Monique given estimated blood loss with this baseline hemoglobin the unit will be sent down with patient for surgery preemptively to avoid significant postoperative anemia, check hemoglobin in the a.m. -02/10: Blood counts main stable #Hypertension - Seem to be improving with pain control, continue to monitor, resume metoprolol, amlodipine, and losartan likely postoperatively as blood pressure tolerates - Will continue to monitor -02/09: Blood pressure was significantly elevated this morning with systolic at 200 but this improved with dialysis and with pain control, monitor blood pressure perioperatively and likely will be able to resume home medications -02/10: BP better postoperatively and after dialysis. Resume home metoprolol tartrate and Norvasc, can likely resume losartan tomorrow #ESRD on HD -Consult nephrology -Renal diet when patient longer n.p.o. -Daily weights, I's and O's -02/09: Patient had dialysis presurgery, tolerated this well, discussed with nephrology -02/10: Patient for dialysis tomorrow Chronic medical problems and/or problems not being actively addressed during today's encounter: #Depression/anxiety -Continue home medications #Seizure disorder -Presently maintained on Keppra -Continue home regimen # History of left internal carotid artery stenosis - Resume antiplatelets when okay to do so by Ortho -Statin held, per chart review last time patient was here earlier this month did not want him to be on atorvastatin/receive atorvastatin, unclear reason for this #DVT ppx: Eliquis twice daily Virginie Ely MD Charges/Coding Visit Charges Inpatient E&M: 48701 Subs Hosp L2
[2025-02-10] MEDS: Insulin Glargine-YFGN 100 UNIT/ML Pen SC (23:23)
[2025-02-11] VITALS (13 sets, daily range): BP systolic 106–170; BP diastolic 49–77; PULSE 69–99; RESP 14–18; TEMP 36.5–37.2; O2SAT 93–100; BMI 24.0; BMI 23.8
[2025-02-11 07:38] LABS: Hematocrit 25.4 % (40-54); Hemoglobin 8.4 g/dL (13.0-16.5); Immature Granulocytes Count 0.040 X10^3/uL (0.0-0.0); Mean Corp Hgb Conc 33.1 g/dL (32-36); Mean Corpuscular Volume 99.6 fL (80-94); Mean Platelet Vol. 9.9 fl (6.2-12.0); NRBC Flagged by Analyzer 0 % (0-5); Platelet Count 251 K/mm3 (150-450); RBC Distribution Width CV 15.9 % (11.6-14.6); RBC Distribution Width SD 58.0 fl (35.1-43.9); Red Blood Count 2.55 M/mm3 (4.6-6.2); White Blood Count 9.6 K/mm3 (4.4-11.0)
[2025-02-11 08:05] LABS: Anion Gap 16 (5-15); BUN 45 mg/dL (4-19); BUN/Creat Ratio 6.7 RATIO (10-20); Calcium,Total 8.7 mg/dL (7.6-11.0); Carbon Dioxide 22.6 mmol/L (21.0-32.0); Chloride 102 mmol/L (98-108); Estimated Creatinine Clearance 11.62 ml/min (50-250); Glucose 150 mg/dL (70-99); Potassium 4.2 mmol/L (3.3-5.1)
[2025-02-11] MEDS: 0.9% Normal Saline 1,000 ML IV.SOLN. 1000 ML OPERA.SITE (08:32)
[2025-02-11] MEDS: PureFlow B 2K Dialysis Soln 1 BAG 6 BAG PF (08:32)
--- NOTE | 2025-02-11 11:02 | CASEMGMT ---
Discharge Planning [facility] has obtained skilled auth. Duyen Bright DC Planning Asst
--- NOTE | 2025-02-11 11:16 | PN.RENAL_ITS ---
Subjective Subjective No new complaints Objective Data Objective Data Vital Signs: Vital Signs Temp Pulse Resp BP Pulse Ox O2 Del Method 97.9 F 72 14 152/76 H 100 Room Air 02/11/25 08:06 02/11/25 10:59 02/11/25 10:59 02/11/25 10:59 02/11/25 10:34 02/11/25 10:59 Oxygen Delivery Method Room Air Weight: 82.2 kg Body Mass Index (BMI) 24.0 Intake & Output: Intake and Output for Last 24 Hours 02/09/25 02/10/25 02/11/25 23:59 23:59 23:59 Intake Total 710 / 810 2835 / 2835 0 / 0 Output Total 990 / 1040 1050 / 1050 0 / 0 Balance -280 / -230 1785 / 1785 0 / 0 Lab / Micro Data 02/11/25 06:58 02/11/25 06:58 Labs: Laboratory Results - last 24 hr 02/10/25 11:21: POC Glucose 167 H 02/10/25 16:05: POC Glucose 203 H 02/10/25 23:19: POC Glucose 161 H 02/11/25 06:58: WBC 9.6, RBC 2.55 L, Hgb 8.4 L, Hct 25.4 L, MCV 99.6 H, MCH 32.9 H, MCHC 33.1, RDW Std Deviation 58.0 H, RDW Coeff of Corina 15.9 H, Plt Count 251, MPV 9.9, Immature Gran % (Auto) 0.400, Neut % (Auto) 64.1, Lymph % (Auto) 22.3, [place] % (Auto) 10.4 H, Eos % (Auto) 2.6, Baso % (Auto) 0.2, Absolute Neuts (auto) 6.1, Absolute Lymphs (auto) 2.13, Nucleated RBC % 0, Sodium 140, Potassium 4.2, Chloride 102, Carbon Dioxide 22.6, Anion Gap 16 H, BUN 45 H, Creatinine 6.78 H, Estim Creat Clear Calc 11.62 L, Est GFR (MDRD) Non-Af 8 L, BUN/Creatinine Ratio 6.7 L, Glucose 150 H, Calcium 8.7 02/11/25 07:10: POC Glucose 145 H Rhythm Strip Rhythm Strip: Sinus Rhythm Rate: 70 Ectopy: None Physical Exam Narrative Alert, no apparent distress S1, S2, RRR Lungs sound clear anteriorly and posteriorly. On room air Abdomen soft, nontender No edema AV fistula left upper arm positive thrill and bruit Assessment & Plan Assessment/Plan (1) ESRD on hemodialysis: (2) Fracture of femoral neck, right, closed: QUALIFIERS: Encounter type: initial encounter Qualified Code(s): S72.001A - Fracture of unspecified part of neck of right femur, initial encounter for closed fracture PLAN: Plan This is a 69-year-old male with past medical history significant for ESRD who currently dialyzes at [facility] Friday admitted for right hip fracture. Patient underwent right hip surgery yesterday. He also had dialysis yesterday with around 600 mL fluid removal. Blood pressures were elevated yesterday, but have overall improved. No acute indication for [employer] today. Next dialysis will be tomorrow. Patient has history of anemia of chronic disease, hemoglobin 9 on admission, today's hemoglobin is 8.1. Will follow hemoglobin trends. Patient does receive long-acting AMADO and IV venofer at the kidney center. Thank you for allowing us to participate in the care of Mr. Arredondo, assessment and plan reviewed with Dr. Odonnell. 02/11/2025. Seen on dialysis today. No new complaints today. Potential discharge after dialysis. Blood pressure stable.
[2025-02-11] MEDS: 0.9% Saline Lock 10 ML Syringe IV (12:18)
[2025-02-11] MEDS: Cefazolin 1 GM/50 ML BAG IV (12:19)
--- NOTE | 2025-02-11 14:28 | TREXTCAR_ITS ---
Diet Diet Order/Speech Therapy: INPATIENT Hospital Diet / Speech Therapy Order(s) 02/09/25 16:32 ADA [Diet: Consistent Carb - Calorie Controlled] Food consistency:: Regular Liquid Consistency:: [place]/Mildly Thick Dietary Modifications:: Sodium Restricted Potassium Restricted Type of Dietary Supplement:: Nepro Diet Comments: 120mL nepro with meals How many daily calories?: 2000 calorie Routine Orders/Code Status Suppository Type: Dulcolax 10mg Suppository Frequency: Daily PRN Code Status: Full Code DC O2, CPAP, BIPAP needs Home O2 Discharge instructions: No Wound(s) left buttocks: Wound Type: Pressure Injury left lateral buttock: Wound Type: Abrasion RIGHT LATERAL HIP: Wound Type: Surgical Incision Therapies Physical Therapy: Eval and Treat Occupational Therapy: Eval and Treat Problem/Diagnosis (1) ESRD on hemodialysis: Status: Acute Code(s): N18.6 - End stage renal disease; Z99.2 - Dependence on renal dialysis (2) Fracture of femoral neck, right, closed: Status: Acute Code(s): S72.001A - Fracture of unspecified part of neck of right femur, initial encounter for closed fracture Plan # Right femoral neck fracture-status post right hip hemiarthroplasty #Type 2 diabetes mellitus # Chronic anemia #Hypertension #ESRD on HD #Depression/anxiety #Seizure disorder # History of left internal carotid artery stenosis 69-year-old male with a history above presented [facility] ED 02/08/25 due to right hip pain after a fall from 2 days prior. He was found to have right hip fracture and Ortho was consulted. Patient admitted to the hospital and underwent right hip hemiarthroplasty 02/09/[address] Monique. Patient tolerated this well. He has chronic end-stage renal disease on hemodialysis and underwent this routinely on Friday and Friday as his outpatient schedule usually is. On day of discharge patient received dialysis, reported his stomach was a little bit crumbly and he briefly felt nauseous during dialysis but has not had any emesis, is presently in stable condition. Cleared for discharge from Ortho standpoint with the following discharge instructions: - Recommended Eliquis 2.5 mg twice daily for 3 weeks and then resuming home antiplatelets. -Keep initial postop hip dressing intact x 7 days. Do not wet or submerge dressing area, okay to cleanse around dressing. -Remove dressing on postop day 7 and perform daily and as needed antibacterial soap and water cleansing and cover with gauze bandage. -Monitor site daily and as needed for any signs or concerns for infection including redness, swelling, increased pain to incision site, drainage, streaking, fever, chills or other concerns to seek evaluation -Follow hip precautions that were reviewed in hospital - Follow-up with Ortho in 2 weeks - Continue dialysis as previously scheduled Allergies/Procedures Done in Hospital Allergies No Known Allergies Allergy (Verified 02/08/25 00:27) Procedures: - (right hip hemiarthroplasty 02/09/[address] Monique) Type of Care/Length of Stay Estimated LOS: More Than 30 Days Type of Care Needed: Intermediate Rehab Potential: Poor Prognosis: Poor Additional Orders/Day of Discharge Day of Discharge: 02/11/25 Dietary and Speech Recommendations Dietitian Recommendations/Changes: Will adjust diet to 2000 calorie/consistent carbohydrate; general renal. Will add 120mL PO Nepro carb steady with meals. Monitor PO, weight and offer additional ONS as needed. Discharge Plan Admission Admit Date/Time: 02/08/25 01:57 Primary Reason for Your Visit: Right hip fracture Attending Provider: Virginie Ely Primary Care Provider: Care Physician,No Primary Consulting Providers: Isaias Monique; Zhen Gruber; Marina Odonnell Instructions Patient Instructions: ED Fall Prevention Additional Instructions / Restrictions: DISCHARGE INSTRUCTIONS PLEASE READ *Please take this with you to your next doctors appointment* - Recommended Eliquis 2.5 mg twice daily for 3 weeks and then resuming home antiplatelets. -Keep initial postop hip dressing intact x 7 days. Do not wet or submerge dressing area, okay to cleanse around dressing. -Remove dressing on postop day 7 and perform daily and as needed antibacterial soap and water cleansing and cover with gauze bandage. -Monitor site daily and as needed for any signs or concerns for infection including redness, swelling, increased pain to incision site, drainage, streaking, fever, chills or other concerns to seek evaluation -Follow hip precautions that were reviewed in hospital - Follow-up with Ortho in 2 weeks - Continue dialysis as previously scheduled -Please call your primary care provider's office upon discharge to schedule a hospital follow up within 1 week. -For any concerning signs or symptoms please call 911 or proceed to the nearest emergency department Discharge Orders/Prescriptions Prescriptions: New acetaminophen 500 mg Tablet 1,000 mg PO Q8 7 Days Qty: 0 0RF Eliquis 5 mg Tablet 2.5 mg PO BID 21 Days Qty: 0 0RF oxycodone 5 mg Tablet 5 mg PO Q4H PRN PRN (Reason: Pain Score 4-10) 2 Days Qty: 20 0RF Continued amlodipine 10 mg tablet 5 mg PO DAILY aluminum-magnesium hydroxide 225-200 mg/5 mL suspension 30 ml PO Q4H PRN PRN (Reason: acid reflux) levetiracetam 500 mg tablet 500 mg PO BID losartan 25 mg tablet 50 mg PO DAILY metoprolol tartrate 25 mg tablet 25 mg PO BID Rx Instructions: hold for BP 100/60 or hr <60 magnesium hydroxide [Milk of Magnesia] 400 mg/5 mL suspension 30 ml PO DAILY PRN (Reason: constipation) omega-3 acid ethyl esters 1 gram capsule 1 cap PO BID sertraline 25 mg tablet 25 mg PO DAILY sertraline 50 mg tablet 50 mg PO BID ondansetron 4 mg tablet,disintegrating 4 mg PO Q8H PRN Mircera 50 mcg/0.3 mL syringe 30 mcg IV QMONTH iron sucrose 50 mg iron/2.5 mL solution 50 mg IV QWEEK Rx Instructions: administer over 15 minutes metoclopramide HCl [Reglan] 5 mg tablet 10 mg PO .as directed Rx Instructions: take before meals for nausea/vomiting Katelynn-Tiago 0.8 mg tablet 1 tab PO DAILY sevelamer carbonate 800 mg tablet 800 mg PO TID Lokelma 10 gram powder in packet 10 g PO .qweeksunday Patient Comments: takes every week on sundays tizanidine 2 mg Tablet 2 mg PO Q8 PRN (Reason: muscle pain/spasm) Qty: 0 0RF sennosides-docusate sodium [Stimulant Laxative Plus] 8.6-50 mg Tablet 2 tab PO BID Qty: 0 0RF guaifenesin 100 mg/5 mL liquid 200 mg PO Q4H PRN (Reason: cough, congestion) bisacodyl 10 mg suppository 10 mg AK DAILY PRN (Reason: constipation) Fleet Enema 19-7 gram/118 mL enema 118 ml AK DAILY PRN (Reason: constipation) Patient Comments: as needed for constipation x2 per episodes if dulcolax suppository i neffective. glucagon HCl [Glucagon (HCl) Emergency Kit] 1 mg recon soln 1 mg IM Q20M PRN (Reason: hypoglycemia) Patient Comments: for symptomatic hypoglycemia not responsive to oral intervention Rx Instructions: until target blood sugar attained insulin lispro [Humalog KwikPen Insulin] 100 unit/mL Insulin Pen See Protocol subcut .before meals Protocol: 4. Sliding Scale Insulin High-Med Dosing Condition: 150-199 mg/dl = 2 units Condition: 200-259 mg/dl = 4 units Condition: 260-324 mg/dl = 6 units Condition: 325-374 mg/dl = 8 units Condition: 375-409 mg/dl = 10 units Condition: 410-449 mg/dl = 11 units Condition: Greater than 449 call physician Protocol Text: Suggested for: - Patients on Total Daily Insulin Dose of 56-80 units - Patient who are known to be insulin resistant or septic HIGH MEDIUM DOSING ALGORITHM Patient Comments: Blood sugar 150-199=2 units, 200-259=4 units, 260-324=6 units, 325-374=8 units, 375-409=10 units, 410-449=11 units, if greater than 449 call provider Lokelma 10 gram powder in packet 10 g PO .COMPLEX Rx Instructions: 10 grams orally .FRIDAY; Changed insulin glargine [Lantus Solostar U-100 Insulin] 100 unit/mL (3 mL) insulin pen 7 unit subcut .HS Qty: 15 0RF Held acetaminophen 650 mg suppository 650 mg AK Q4H PRN (Reason: fever or pain) Hold Instructions: Resume on 02/19/25. acetaminophen 325 mg capsule 650 mg PO Q6H PRN (Reason: fever or pain) Hold Instructions: Resume on 02/19/25. aspirin 81 mg capsule 81 mg PO DAILY Hold Instructions: Resume on 03/05/25. clopidogrel 75 mg tablet 75 mg PO DAILY Hold Instructions: Resume on 03/05/25. Referrals / Follow Up: Care Physician,No Primary [Primary Care Provider, Medical] Disposition Disposition (needs filled in before D/C Order can be placed): NonSkilled NH/Intermed Care (2) Fracture of femoral neck, right, closed Qualifiers: Encounter type: initial encounter Qualified Code(s): S72.001A - Fracture of unspecified part of neck of right femur, initial encounter for closed fracture
--- NOTE | 2025-02-11 14:39 | PCM.DC.SUM ---
Providers Date of Admission: 02/08/25 Date of Discharge: 02/11/25 Primary Care Physician: No Primary Care Phys Consultations 02/08/25 03:26 Consult: Orthopedics Routine Consulting Provider: Isaias Monique Reason for Consult: Right hip fracture EMERGENT Consult: Yes MD Notified: Yes Date Notified: 02/08/25 Time Notified: 02:00 Method of Notification: ED Physician Initiated 02/08/25 06:31 Consult: Onc/Wound/medical insurance claims processor Routine Comment: Reason for Consult:: Pressure ulcer left buttock 02/08/25 09:26 Consult: Nephrology Routine Consulting Provider: Marina Odonnell Reason for Consult: esrd on hd EMERGENT Consult: No MD Notified: Yes Date Notified: 02/08/25 Time Notified: 10:13 Method of Notification: Answering Service Reason For Visit: RIGHT HIP FRACTURE Diagnosis Discharge Diagnosis (1) ESRD on hemodialysis: Status: Acute Code(s): N18.6 - End stage renal disease; Z99.2 - Dependence on renal dialysis (2) Fracture of femoral neck, right, closed: Status: Acute Code(s): S72.001A - Fracture of unspecified part of neck of right femur, initial encounter for closed fracture Qualifiers: Encounter type: initial encounter Qualified Code(s): S72.001A - Fracture of unspecified part of neck of right femur, initial encounter for closed fracture Plan # Right femoral neck fracture-status post right hip hemiarthroplasty #Type 2 diabetes mellitus # Chronic anemia #Hypertension #ESRD on HD #Depression/anxiety #Seizure disorder # History of left internal carotid artery stenosis Medications at Discharge Home Medications acetaminophen 325 mg capsule 650 mg PO Q6H PRN fever or pain 11/04/24 Held on 02/11/25. Instructions: Resume on 02/19/25. acetaminophen 650 mg rectal suppository 650 mg OR Q4H PRN fever or pain 11/04/24 Held on 02/11/25. Instructions: Resume on 02/19/25. aluminum-magnesium hydroxide 225 mg-200 mg/5 mL oral suspension 30 ml PO Q4H PRN PRN acid reflux 11/04/24 amlodipine 10 mg tablet 5 mg PO DAILY bp 11/04/24 aspirin 81 mg capsule 81 mg PO DAILY blood thinner 11/04/24 Held on 02/11/25. Instructions: Resume on 03/05/25. clopidogrel 75 mg tablet 75 mg PO DAILY Left internal carotid artery stenosis 11/04/24 Held on 02/11/25. Instructions: Resume on 03/05/25. levetiracetam 500 mg tablet 500 mg PO BID seizures 11/04/24 losartan 25 mg tablet 50 mg PO DAILY 11/04/24 magnesium hydroxide 400 mg/5 mL oral suspension (Milk of Magnesia) 30 ml PO DAILY PRN constipation 11/04/24 metoprolol tartrate 25 mg tablet 25 mg PO BID HTN 11/04/24 omega-3 acid ethyl esters 1 gram capsule 1 cap PO BID supplement 11/04/24 ondansetron 4 mg disintegrating tablet 4 mg PO Q8H PRN nausea/vomiting 11/04/24 sertraline 25 mg tablet 25 mg PO DAILY depression 11/04/24 sertraline 50 mg tablet 50 mg PO BID depression 11/04/24 epoetin beta, methoxy peg 50 mcg/0.3 mL injection syringe (Mircera) 30 mcg IV QMONTH used for dialysis 01/31/25 iron sucrose 50 mg iron/2.5 mL intravenous solution 50 mg IV QWEEK dialysis 01/31/25 metoclopramide HCl 5 mg tablet (Reglan) 10 mg PO .as directed nausea/ vomiting 01/31/25 sevelamer carbonate 800 mg tablet 800 mg PO TID high BP 01/31/25 sodium zirconium cyclosilicate 10 gram oral powder packet (Lokelma) 10 g PO .qweeksunday hypokalemia 01/31/25 vitamin B complex-vitamin C-folic acid 0.8 mg tablet (Katelynn-Tiago) 1 tab PO DAILY supplement 01/31/25 sennosides 8.6 mg-docusate sodium 50 mg tablet (Stimulant Laxative Plus) 2 tab PO BID #0 tabs 02/02/25 tizanidine 2 mg tablet 2 mg PO Q8 PRN muscle pain/spasm #0 tabs 02/02/25 bisacodyl 10 mg rectal suppository 10 mg OR DAILY PRN constipation 02/08/25 glucagon HCl 1 mg solution for injection (Glucagon (HCl) Emergency Kit) 1 mg IM Q20M PRN hypoglycemia 02/08/25 guaifenesin 100 mg/5 mL oral liquid 200 mg PO Q4H PRN cough, congestion 02/08/25 insulin lispro 100 unit/mL subcutaneous pen (Humalog KwikPen (U-100) Insulin) See Protocol subcut .before meals DM 02/08/25 sodium phosphates 19 gram-7 gram/118 mL enema (Fleet Enema) 118 ml OR DAILY PRN constipation 02/08/25 sodium zirconium cyclosilicate 10 gram oral powder packet (Lokelma) 10 g PO .COMPLEX hyperkalemia 02/08/25 acetaminophen 500 mg tablet 1,000 mg (2 x 500 mg) PO Q8 7 days #0 tabs 02/11/25 apixaban 5 mg tablet (Eliquis) 2.5 mg (1/2 x 5 mg) PO BID 21 days #0 tabs 02/11/25 insulin glargine 100 unit/mL (3 mL) subcutaneous pen (Lantus Solostar U-100 Insulin) 7 unit (0.07 mL) subcut .HS dm #15 mL 02/11/25 oxycodone 5 mg tablet 5 mg PO Q4H PRN PRN Pain Score 4-10 2 days #20 tabs 02/11/25 Hospital Course Operations - (ight hip hemiarthroplasty 02/09/[address] Monique) Summary of Care Provided Minutes Spent on Discharge: 32 Hospital Course: # Right femoral neck fracture-status post right hip hemiarthroplasty #Type 2 diabetes mellitus # Chronic anemia #Hypertension #ESRD on HD #Depression/anxiety #Seizure disorder # History of left internal carotid artery stenosis 69-year-old male with a history above presented [facility] ED 02/08/25 due to right hip pain after a fall from 2 days prior. He was found to have right hip fracture and Ortho was consulted. Patient admitted to the hospital and underwent right hip hemiarthroplasty 02/09/[address] Monique. Patient tolerated this well. He has chronic end-stage renal disease on hemodialysis and underwent this routinely on Friday and Friday as his outpatient schedule usually is. On day of discharge patient received dialysis, reported his stomach was a little bit crumbly and he briefly felt nauseous during dialysis but has not had any emesis, is presently in stable condition. Cleared for discharge from Ortho standpoint with the following discharge instructions: - Recommended Eliquis 2.5 mg twice daily for 3 weeks and then resuming home antiplatelets. -Keep initial postop hip dressing intact x 7 days. Do not wet or submerge dressing area, okay to cleanse around dressing. -Remove dressing on postop day 7 and perform daily and as needed antibacterial soap and water cleansing and cover with gauze bandage. -Monitor site daily and as needed for any signs or concerns for infection including redness, swelling, increased pain to incision site, drainage, streaking, fever, chills or other concerns to seek evaluation -Follow hip precautions that were reviewed in hospital - Follow-up with Ortho in 2 weeks - Continue dialysis as previously scheduled Physical Exam Narrative General: Resting comfortably, no acute distress HEENT: Atraumatic Eyes: Spontaneous opening Neck: Supple Respiratory: normal respiratory effort Cardiovascular: no significant peripheral edema appreciated GI: nondistended, did not seem to have any tenderness on palpation Extremities: Extremity movement limited by pain due to postsurgery Neuro: No overt focal neurological deficits Psych: Fairly cooperative Weight / BMI Weight Weight: 81.8 kg Body Mass Index (BMI) 23.8 ABG / Lab / Microbiology Data 02/11/25 06:58 02/11/25 06:58 Laboratory: Laboratory Results - last 24 hr 02/10/25 23:19: POC Glucose 161 H 02/11/25 06:58: WBC 9.6, RBC 2.55 L, Hgb 8.4 L, Hct 25.4 L, MCV 99.6 H, MCH 32.9 H, MCHC 33.1, RDW Std Deviation 58.0 H, RDW Coeff of [place] 15.9 H, Plt Count 251, MPV 9.9, Immature Gran % (Auto) 0.400, Neut % (Auto) 64.1, Lymph % (Auto) 22.3, [place] % (Auto) 10.4 H, Eos % (Auto) 2.6, Baso % (Auto) 0.2, Absolute Neuts (auto) 6.1, Absolute Lymphs (auto) 2.13, Nucleated RBC % 0, Sodium 140, Potassium 4.2, Chloride 102, Carbon Dioxide 22.6, Anion Gap 16 H, BUN 45 H, Creatinine 6.78 H, Estim Creat Clear Calc 11.62 L, Est GFR (MDRD) Non-Af 8 L, BUN/Creatinine Ratio 6.7 L, Glucose 150 H, Calcium 8.7 02/11/25 07:10: POC Glucose 145 H 02/11/25 12:14: POC Glucose 127 H 02/11/25 16:27: POC Glucose 163 H D/C Instructions DC O2, CPAP, BIPAP Needs Home O2 Discharge instructions: No Meaningful Use Info Meaningful Use Meaningful Use Diagnoses (Choose all that apply): None applicable Discharge Plan Admission Admit Date/Time: 02/08/25 01:57 Primary Reason for Your Visit: Right hip fracture Attending Provider: Virginie Ely Primary Care Provider: Care Physician,No Primary Consulting Providers: Isaias Monique; Zhen Gruber; Marina Odonnell Instructions Patient Instructions: ED Fall Prevention Additional Instructions / Restrictions: DISCHARGE INSTRUCTIONS PLEASE READ *Please take this with you to your next doctors appointment* - Recommended Eliquis 2.5 mg twice daily for 3 weeks and then resuming home antiplatelets. -Keep initial postop hip dressing intact x 7 days. Do not wet or submerge dressing area, okay to cleanse around dressing. -Remove dressing on postop day 7 and perform daily and as needed antibacterial soap and water cleansing and cover with gauze bandage. -Monitor site daily and as needed for any signs or concerns for infection including redness, swelling, increased pain to incision site, drainage, streaking, fever, chills or other concerns to seek evaluation -Follow hip precautions that were reviewed in hospital - Follow-up with Ortho in 2 weeks - Continue dialysis as previously scheduled -Please call your primary care provider's office upon discharge to schedule a hospital follow up within 1 week. -For any concerning signs or symptoms please call 911 or proceed to the nearest emergency department Discharge Orders/Prescriptions Prescriptions: New acetaminophen 500 mg Tablet 1,000 mg PO Q8 7 Days Qty: 0 0RF Eliquis 5 mg Tablet 2.5 mg PO BID 21 Days Qty: 0 0RF oxycodone 5 mg Tablet 5 mg PO Q4H PRN PRN (Reason: Pain Score 4-10) 2 Days Qty: 20 0RF Continued amlodipine 10 mg tablet 5 mg PO DAILY aluminum-magnesium hydroxide 225-200 mg/5 mL suspension 30 ml PO Q4H PRN PRN (Reason: acid reflux) levetiracetam 500 mg tablet 500 mg PO BID losartan 25 mg tablet 50 mg PO DAILY metoprolol tartrate 25 mg tablet 25 mg PO BID Rx Instructions: hold for BP 100/60 or hr <60 magnesium hydroxide [Milk of Magnesia] 400 mg/5 mL suspension 30 ml PO DAILY PRN (Reason: constipation) omega-3 acid ethyl esters 1 gram capsule 1 cap PO BID sertraline 25 mg tablet 25 mg PO DAILY sertraline 50 mg tablet 50 mg PO BID ondansetron 4 mg tablet,disintegrating 4 mg PO Q8H PRN Mircera 50 mcg/0.3 mL syringe 30 mcg IV QMONTH iron sucrose 50 mg iron/2.5 mL solution 50 mg IV QWEEK Rx Instructions: administer over 15 minutes metoclopramide HCl [Reglan] 5 mg tablet 10 mg PO .as directed Rx Instructions: take before meals for nausea/vomiting Katelynn-Tiago 0.8 mg tablet 1 tab PO DAILY sevelamer carbonate 800 mg tablet 800 mg PO TID Lokelma 10 gram powder in packet 10 g PO .qweeksunday Patient Comments: takes every week on sundays tizanidine 2 mg Tablet 2 mg PO Q8 PRN (Reason: muscle pain/spasm) Qty: 0 0RF sennosides-docusate sodium [Stimulant Laxative Plus] 8.6-50 mg Tablet 2 tab PO BID Qty: 0 0RF guaifenesin 100 mg/5 mL liquid 200 mg PO Q4H PRN (Reason: cough, congestion) bisacodyl 10 mg suppository 10 mg OR DAILY PRN (Reason: constipation) Fleet Enema 19-7 gram/118 mL enema 118 ml OR DAILY PRN (Reason: constipation) Patient Comments: as needed for constipation x2 per episodes if dulcolax suppository ineffective. glucagon HCl [Glucagon (HCl) Emergency Kit] 1 mg recon soln 1 mg IM Q20M PRN (Reason: hypoglycemia) Patient Comments: for symptomatic hypoglycemia not responsive to oral intervention Rx Instructions: until target blood sugar attained insulin lispro [Humalog KwikPen Insulin] 100 unit/mL Insulin Pen See Protocol subcut .before meals Protocol: 4. Sliding Scale Insulin High-Med Dosing Condition: 150-199 mg/dl = 2 units Condition: 200-259 mg/dl = 4 units Condition: 260-324 mg/dl = 6 units Condition: 325-374 mg/dl = 8 units Condition: 375-409 mg/dl = 10 units Condition: 410-449 mg/dl = 11 units Condition: Greater than 449 call physician Protocol Text: Suggested for: - Patients on Total Daily Insulin Dose of 56-80 units - Patient who are known to be insulin resistant or septic HIGH MEDIUM DOSING ALGORITHM Patient Comments: Blood sugar 150-199=2 units, 200-259=4 units, 260-324=6 units, 325-374=8 units, 375-409=10 units, 410-449=11 units, if greater than 449 call provider Lokelma 10 gram powder in packet 10 g PO .COMPLEX Rx Instructions: 10 grams orally .FRIDAY; Changed insulin glargine [Lantus Solostar U-100 Insulin] 100 unit/mL (3 mL) insulin pen 7 unit subcut .HS Qty: 15 0RF Held acetaminophen 650 mg suppository 650 mg OR Q4H PRN (Reason: fever or pain) Hold Instructions: Resume on 02/19/25. acetaminophen 325 mg capsule 650 mg PO Q6H PRN (Reason: fever or pain) Hold Instructions: Resume on 02/19/25. aspirin 81 mg capsule 81 mg PO DAILY Hold Instructions: Resume on 03/05/25. clopidogrel 75 mg tablet 75 mg PO DAILY Hold Instructions: Resume on 03/05/25. Referrals / Follow Up: Care Physician,No Primary [Primary Care Provider, Medical] Disposition Disposition (needs filled in before D/C Order can be placed): Jail Facility Charges/Coding Visit Charges Inpatient E&M: 02460 Disch Hosp >30min
--- NOTE | 2025-02-11 15:13 | CASEMGMT ---
Social Work Precert has been obtained for pt to return to [facility]. Physician updated and pt is ready for dc at this time. DC respiratory care assistant updated and will complete dc back to [facility]. Disposition: Return to [facility], skilled level of care JOSE J Pride
--- NOTE | 2025-02-11 15:20 | CASEMGMT ---
Discharge Planning Discharge orders, signed med list, and transport time sent via [facility] to [facility]. Physicians will transport pt by cot at 6:30p. Nursing, SW, and pts updated. Duyen Bright DC Planning Asst.
--- NOTE | 2025-02-11 15:21 | PHA.DC.MR.R ---
Pharmacy [facility] has performed discharge medication reconciliation for this patient. The patient's discharge medication list was reviewed for discrepancies and discrepancies were resolved. Medications at Discharge Home Medications acetaminophen 325 mg capsule 650 mg PO Q6H PRN fever or pain 11/04/24 Held on 02/11/25. Instructions: Resume on 02/19/25. acetaminophen 650 mg rectal suppository 650 mg LA Q4H PRN fever or pain 11/04/24 Held on 02/11/25. Instructions: Resume on 02/19/25. aluminum-magnesium hydroxide 225 mg-200 mg/5 mL oral suspension 30 ml PO Q4H PRN PRN acid reflux 11/04/24 amlodipine 10 mg tablet 5 mg PO DAILY bp 11/04/24 aspirin 81 mg capsule 81 mg PO DAILY blood thinner 11/04/24 Held on 02/11/25. Instructions: Resume on 03/05/25. clopidogrel 75 mg tablet 75 mg PO DAILY Left internal carotid artery stenosis 11/04/24 Held on 02/11/25. Instructions: Resume on 03/05/25. levetiracetam 500 mg tablet 500 mg PO BID seizures 11/04/24 losartan 25 mg tablet 50 mg PO DAILY 11/04/24 magnesium hydroxide 400 mg/5 mL oral suspension (Milk of Magnesia) 30 ml PO DAILY PRN constipation 11/04/24 metoprolol tartrate 25 mg tablet 25 mg PO BID HTN 11/04/24 omega-3 acid ethyl esters 1 gram capsule 1 cap PO BID supplement 11/04/24 ondansetron 4 mg disintegrating tablet 4 mg PO Q8H PRN nausea/vomiting 11/04/24 sertraline 25 mg tablet 25 mg PO DAILY depression 11/04/24 sertraline 50 mg tablet 50 mg PO BID depression 11/04/24 epoetin beta, methoxy peg 50 mcg/0.3 mL injection syringe (Mircera) 30 mcg IV QMONTH used for dialysis 01/31/25 iron sucrose 50 mg iron/2.5 mL intravenous solution 50 mg IV QWEEK dialysis 01/31/25 metoclopramide HCl 5 mg tablet (Reglan) 10 mg PO .as directed nausea/ vomiting 01/31/25 sevelamer carbonate 800 mg tablet 800 mg PO TID high BP 01/31/25 sodium zirconium cyclosilicate 10 gram oral powder packet (Lokelma) 10 g PO .qweeksunday hypokalemia 01/31/25 vitamin B complex-vitamin C-folic acid 0.8 mg tablet (Katelynn-Tiago) 1 tab PO DAILY supplement 01/31/25 sennosides 8.6 mg-docusate sodium 50 mg tablet (Stimulant Laxative Plus) 2 tab PO BID #0 tabs 02/02/25 tizanidine 2 mg tablet 2 mg PO Q8 PRN muscle pain/spasm #0 tabs 02/02/25 bisacodyl 10 mg rectal suppository 10 mg LA DAILY PRN constipation 02/08/25 glucagon HCl 1 mg solution for injection (Glucagon (HCl) Emergency Kit) 1 mg IM Q20M PRN hypoglycemia 02/08/25 guaifenesin 100 mg/5 mL oral liquid 200 mg PO Q4H PRN cough, congestion 02/08/25 insulin lispro 100 unit/mL subcutaneous pen (Humalog KwikPen (U-100) Insulin) See Protocol subcut .before meals DM 02/08/25 sodium phosphates 19 gram-7 gram/118 mL enema (Fleet Enema) 118 ml LA DAILY PRN constipation 02/08/25 sodium zirconium cyclosilicate 10 gram oral powder packet (Lokelma) 10 g PO .COMPLEX hyperkalemia 02/08/25 acetaminophen 500 mg tablet 1,000 mg (2 x 500 mg) PO Q8 7 days #0 tabs 02/11/25 apixaban 5 mg tablet (Eliquis) 2.5 mg (1/2 x 5 mg) PO BID 21 days #0 tabs 02/11/25 insulin glargine 100 unit/mL (3 mL) subcutaneous pen (Lantus Solostar U-100 Insulin) 7 unit (0.07 mL) subcut .HS dm #15 mL 02/11/25 oxycodone 5 mg tablet 5 mg PO Q4H PRN PRN Pain Score 4-10 2 days #20 tabs 02/11/25
[2025-02-11] MEDS: Cholecalciferol (VIT D3) 25 MCG TABLET (1,000 UNITS) PO (17:37)
[2025-02-11] MEDS: SEVELAMER CARBONATE 800 MG TABLET PO (17:38)
[2025-02-11] MEDS: APIXABAN 2.5 MG TABLET (WCH) PO (22:24)
[2025-02-11] MEDS: Senna/Docusate Sodium 1 Tablet 2 TABLET PO (22:26)
[2025-02-11] MEDS: Insulin Glargine-YFGN 100 UNIT/ML Pen SC (22:36)
== END 2025-02-11 22:50 | disposition skilled nursing facility (03) | DRG 521 ==
LOC: ED 01:38 → MS3 02:05
PROVIDERS: Orthopaedic Surgery; Admitting Provider Family Medicine; Emergency Provider Emergency Medicine; Visit Provider Internal Medicine
PROC: 0SRR0JA Replacement of Right Hip Joint, Femoral Surface with Synthetic Substitute, Uncemented, Open Approach (ICD-10-PCS; CPT 27125; principal; 2025-02-09 12:10)
DX: S72.001A Fracture of unspecified part of neck of right femur, initial encounter for closed fracture (principal); N18.6 End stage renal disease; I12.0 Hypertensive chronic kidney disease with stage 5 chronic kidney disease or end stage renal disease; G93.89 Other specified disorders of brain; F01.50 Vascular dementia, unspecified severity, without behavioral disturbance, psychotic disturbance, mood disturbance, and anxiety; E11.22 Type 2 diabetes mellitus with diabetic chronic kidney disease; G40.909 Epilepsy, unspecified, not intractable, without status epilepticus; D63.1 Anemia in chronic kidney disease; F32.A Depression, unspecified; E78.5 Hyperlipidemia, unspecified; Z99.2 Dependence on renal dialysis; F41.9 Anxiety disorder, unspecified; W01.0XXA Fall on same level from slipping, tripping and stumbling without subsequent striking against object, initial encounter; Z87.891 Personal history of nicotine dependence; Z79.899 Other long term (current) drug therapy; Z96.641 Presence of right artificial hip joint; Z86.73 Personal history of transient ischemic attack (TIA), and cerebral infarction without residual deficits; Y92.129 Unspecified place in nursing home as the place of occurrence of the external cause
CPT/HCPCS: 36415; 70450; 71045; 73502; 80048; 82962; 85025; 86850; 86900; 86901; 88304; 88311; 90937; 93005; 97162; 97167; 97802; 99285; C1776; P9016; A4216; G0257; J2405

== ENCOUNTER → 2025-02-24 | Outpatient (CLI) | payer MEDICARE, MEDICAID, SELFPAY ==
--- NOTE | 2025-02-24 10:14 | VDLE_ITS ---
Reason For Study Reason For Study: Swelling RIGHT LEFT GSV is normal. CFV is compressible, spontaneous, phasic, competent, CFV is compressible, spontaneous, phasic, competent and demonstrates normal augmentation. and demonstrates normal augmentation. FV is compressible, spontaneous, phasic, competent and demonstrates normal augmentation. POP V is compressible, spontaneous, phasic, competent and demonstrates normal augmentation. T/P Trunk is compressible. PTV is compressible. RT PerV is compressible. Bright intraluminal echoes noted in the Rt PTV consistent with chronic dvt. Procedure This is a venous duplex using B-mode, color flow and spectral Doppler. Exam performed in department. A preliminary report was called and/or faxed to Selam Canseco NP. VL/Venous Duplex US, Unilateral Interpretation Summary Chronic venous changes are noted in the right posterior tibial vein. The remain marcus of the right lower extremity deep venous system is patent and compressible. Valvular competence appears intact wi thin the proximal deep venous system on the right . The right great saphenous vein appears patent and compressible segm entally. The left common femoral vein is patent and compressible . Ordering Physician: Selam Canseco Referring Physician: Cathy Krishnamurthy MD Performed By: Jazmin Horne and Student, RVT
== END | disposition home or self-care (01) ==
PROVIDERS: PCP Internal Medicine; Referring Provider Nurse Practitioner Family; Visit Provider Nurse Practitioner Family
DX: M79.661 Pain in right lower leg (principal); M79.89 Other specified soft tissue disorders
CPT/HCPCS: 93971

== ENCOUNTER → 2025-03-01 | Outpatient (REF) | payer MEDICARE, MEDICAID, SELFPAY ==
[2025-03-01 10:32] LABS: Anion Gap 11 (5-15); BUN 30 mg/dL (4-19); BUN/Creat Ratio 6.9 RATIO (10-20); Calcium,Total 8.9 mg/dL (7.6-11.0); Carbon Dioxide 35.9 mmol/L (21.0-32.0); Chloride 96 mmol/L (98-108); Glucose 117 mg/dL (70-99); Potassium 3.6 mmol/L (3.3-5.1)
[2025-03-01 10:42] LABS: Hematocrit 27.4 % (40-54); Hemoglobin 8.4 g/dL (13.0-16.5); Immature Granulocytes Count 0.030 X10^3/uL (0.0-0.0); Mean Corp Hgb Conc 30.7 g/dL (32-36); Mean Corpuscular Volume 101.9 fL (80-94); Mean Platelet Vol. 9.6 fl (6.2-12.0); NRBC Flagged by Analyzer 0 % (0-5); Platelet Count 443 K/mm3 (150-450); RBC Distribution Width CV 15.1 % (11.6-14.6); RBC Distribution Width SD 53.4 fl (35.1-43.9); Red Blood Count 2.69 M/mm3 (4.6-6.2); White Blood Count 7.0 K/mm3 (4.4-11.0)
== END ==
LOC: OLS.SW 04:00
PROVIDERS: PCP Internal Medicine; Referring Provider Internal Medicine; Visit Provider Internal Medicine
DX: Z79.899 Other long term (current) drug therapy (principal)
CPT/HCPCS: 36415; 80048; 85025